=== PATIENT | female | born 1935 | race African-American/Black ===

== ENCOUNTER 2018-04-01 17:52 | Emergency (ER) | payer MEDICARE ==
[~2018-04-01] VITALS: Ht 165.1 cm; Wt 45.4 kg
--- OUTSIDE RECORDS SUMMARY | 2018-04-01 17:54 | XMS REPORT | Clinical Summary ---
Author Author KIMBERLY [facility] Address Unknown Phone Unavailable Care Team Providers Care Car Body Mechanic Name Role Phone PCP Unavailable Allergies Active Allergy Reactions Severity Noted Date Comments Captopril Other (See Comments) High 04/20/2010 Per RXQI Cough Current Medications Prescription Sig. Disp. Refills Start End Date Status Date albuterol-ipratropium Inhale 2 puffs by mouth 1 Inhaler 3 03/25/20 Active (COMBIVENT RESPIMAT) via inhaler every 4 17 20-100 mcg/actuation Mist (four) hours as needed inhaler for Wheezing. carvedilol (COREG) 25 MG Take 1 tablet (25 mg 60 tablet 07/08/20 07/08/20 Active tablet total) by mouth 2 (two) 17 18 times daily with breakfast and dinner. atorvastatin (LIPITOR) 40 Take 1 tablet (40 mg 30 tablet 07/08/20 07/08/20 Active MG tablet total) by mouth nightly. 17 18 clopidogrel (PLAVIX) 75 Take 1 tablet (75 mg 30 tablet 07/08/20 07/08/20 Active mg tablet total) by mouth daily. 17 18 hydrALAZINE (APRESOLINE) Take 1 tablet (100 mg 90 tablet 07/08/20 07/08/20 Active 100 MG tablet total) by mouth every 8 17 18 (eight) hours. isosorbide mononitrate Take 1 tablet (30 mg 60 tablet 07/08/20 Active (IMDUR) 30 MG 24 hr total) by mouth 2 (two) 17 18 tablet times daily. NIFEdipine (ADALAT CC) 90 Take 1 tablet (90 mg 30 tablet 07/08/20 07/08/20 Active MG 24 hr tablet total) by mouth daily. 17 18 pantoprazole (PROTONIX) Take 1 tablet (40 mg 30 tablet 3 07/08/20 Active 40 MG tablet total) by mouth daily. 17 bumetanide (BUMEX) 2 MG Take 1 tablet (2 mg 60 tablet 0 10/11/20 Active tablet total) by mouth 2 (two) 17 18 times daily. potassium chloride SA Take 2 tablets (20 mEq 60 tablet 0 12/24/19 Active (K-DUR,KLOR-CON) 10 MEQ total) by mouth daily. 18 19 tablet predniSONE (DELTASONE) 20 2 tabs daily x2 days, 9 tablet 0 12/24/19 Active MG tablet then 1 tab daily x3 days, 18 then 1/2 tab daily x4 days. aspirin 81 MG EC tablet Take 1 tablet (81 mg 30 tablet 11 03/25/20 07/08/20 Discontin total) by mouth daily. 17 17 ued clopidogrel (PLAVIX) 75 Take 1 tablet (75 mg 30 tablet 03/25/20 07/08/20 Discontin mg tablet total) by mouth daily. 17 17 ued ferrous sulfate 325 (65 Take 1 tablet (325 mg 30 tablet 03/25/20 03/25/20 FE) MG tablet total) by mouth daily. 17 18 hydrALAZINE (APRESOLINE) Take 2 tablets (50 mg 120 tablet 11 03/25/20 07/08/20 Discontin 25 MG tablet total) by mouth 2 (two) 17 17 ued times daily. acetaminophen-codeine Take 1 tablet by mouth 30 tablet 0 03/25/20 (TYLENOL #3) 300-30 mg every 4 (four) hours as 17 17 per tablet needed for Pain for up to 10 days. Max Daily Amount: 6 tablets furosemide (LASIX) 20 MG Take 2 tablets (40 mg 30 tablet 3 03/25/20 07/08/20 Discontin tablet total) by mouth daily. 17 17 ued NIFEdipine (ADALAT CC) 60 Take 2 tablets (120 mg 60 tablet 11 07/08/20 Discontin MG 24 hr tablet total) by mouth daily. 17 17 ued ranitidine (ZANTAC) 150 Take 1 tablet (150 mg 30 tablet 03/25/20 07/08/20 Discontin MG tablet total) by mouth daily. 17 17 ued omeprazole (PRILOSEC) 20 Take 1 capsule (20 mg 30 capsule 3 03/25/20 07/08/20 Discontin MG capsule total) by mouth daily. 17 17 ued senna-docusate (SENOKOT Take 1 tablet by mouth 2 60 tablet 07/08/20 Discontin S) 8.6-50 mg per tablet (two) times daily. 17 17 ued carvedilol (COREG) 25 MG Take 1 tablet (25 mg 60 tablet 03/25/20 07/08/20 Discontin tablet total) by mouth 2 (two) 17 17 ued times daily with breakfast and dinner. atorvastatin (LIPITOR) 40 Take 1 tablet (40 mg 30 tablet 03/25/20 07/08/20 Discontin MG tablet total) by mouth nightly. 17 17 ued escitalopram oxalate Take 1 tablet (5 mg 30 tablet 2 07/08/20 Discontin (LEXAPRO) 5 MG tablet total) by mouth daily for 17 17 ued 90 days. ipratropium-albuterol Take 3 mLs by 360 mL 3 07/08/20 08/07/20 (DUO-NEB) 0.5 mg-3 mg(2.5 nebulization every 6 17 17 mg base)/3 mL nebulizer (six) hours for 30 days. solution predniSONE (DELTASONE) Take 1 tablet (2.5 mg 7 tablet 0 07/09/2001/03 2.5 MG tablet total) by mouth daily for 17 17 7 days 7 days then stop. bumetanide (BUMEX) 1 MG Take 2 tablets (2 mg 120 tablet 07/08/20 07/27/20 Discontin tablet total) by mouth 2 (two) 17 17 ued times daily. polyethylene glycol Take 17 g by mouth daily 510 g 3 07/08/20 (GLYCOLAX) 17 gram packet for 30 days. 17 17 metOLazone (ZAROXOLYN) Take 1 tablet (2.5 mg 8 tablet 3 07/11/20 Discontin 2.5 MG tablet total) by mouth twice a 17 17 ued week for 30 days Take on mondays and . bumetanide (BUMEX) 1 MG Take 1 tablet (1 mg 60 tablet 11 07/27/20 Discontin tablet total) by mouth 2 (two) 17 17 ued times daily. potassium chloride SA Take 1 tablet (10 mEq 30 tablet 11 07/27/20 Discontin (K-DUR,KLOR-CON) 10 MEQ total) by mouth daily. 17 18 ued tablet escitalopram oxalate Take 1 tablet (10 mg 30 tablet 0 07/27/2010/25 (LEXAPRO) 10 MG tablet total) by mouth daily for 17 17 90 days. acetaminophen-codeine Take 1 tablet by mouth 20 tablet 0 12/18/19 (TYLENOL #3) 300-30 mg every 4 (four) hours as 18 18 per tablet needed for up to 10 days. Max Daily Amount: 6 tablets Active Problems Problem Noted Date Shortness of breath 12/21/2017 CHF (congestive heart failure) ([facility]) 12/21/2017 Pleural effusion 12/21/2017 Acute exacerbation of CHF (congestive heart failure) ([facility]) 10/01/2017 Hypertensive urgency 10/01/2017 SAPNA (acute kidney injury) ([facility]) 07/27/2017 Acute diastolic congestive heart failure ([facility]) 06/30/2017 UGI bleed 06/29/2017 Anemia 06/29/2017 PAD (peripheral artery disease) ([facility]) 02/24/2017 Essential hypertension 01/07/2017 Mixed hyperlipidemia 01/07/2017 Tobacco abuse 01/07/2017 Cerebrovascular disease 01/07/2017 Toe ulcer, right ([facility]) PVD (peripheral vascular disease) ([facility]) COPD (chronic obstructive pulmonary disease) ([facility]) Resolved Problems Problem Noted Date Resolved Date COPD exacerbation ([facility]) 10/01/2017 10/01/2017 Dehydration 07/25/2017 10/01/2017 Hypokalemia 07/25/2017 10/01/2017 Uncontrolled hypertension 07/08/2017 10/01/2017 Postoperative anemia due to acute blood loss 03/22/2017 10/01/2017 PVC (premature ventricular contraction) 01/07/2017 10/01/2017 Skin ulcer of toe of right foot with fat layer exposed ([facility]) 01/07/2017 Blister of great toe, right, infected 01/07/2017 10/01/2017 Encounters Date Type Specialty Care Team Description 12/21/2017 [facility] Cardiology Darcie Martin MD Shortness of breath - Encounter Sonali Camargo MD (Primary Dx);Acute on 12/24/2017 chronic congestive heart failure, unspecified congestive heart failure type ([facility]);Pleural effusion;Chronic obstructive pulmonary disease with acute exacerbation (HCC) 12/21/2017 Orders Only General Internal Medicine 12/18/2017 Emergency Emergency Medicine Koko Anne MD Pain of lower extremity, unspecified laterality (Primary Dx);Essential hypertension;Mixed hyperlipidemia 10/01/2017 [facility] Cardiology Koko Anne MD COPD exacerbation (HCC) - Encounter Magdalena Martinez, (Primary Dx);Acute on 10/11/2017 MD 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 ([facility]);PVC (premature ventricular contraction) 10/01/2017 Orders Only General Internal Medicine 07/25/2017 Emergency Cardiology Roseanna Castaneda MD Dehydration (Primary - Gian Washington MD Dx);Acute diastolic 07/27/2017 Juan Pablo Vuong congestive heart failure MD Ravi ([facility]);Hypokalemia;General ized weakness 07/19/2017 Documentation Cardiology Judie Holt, MARKLOGIC DEVELOPER 06/29/2017 [facility] General Internal Medicine Matti Perez, BEN bleed (Primary - Encounter MD Dx);Acute blood loss 07/09/2017 Chris Yanez MD anemia Juan Pablo Vuong MD Conley-Harvey, Cherice Michelle, MD 06/29/2017 Orders Only General Internal Medicine 04/05/2017 Office Visit Cardiology Dimitris Polanco PVD ( peripheral vascular MD disease) ([facility]) (Primary Dx) after 03/31/2017 Immunizations Name Dates Previously Given Next Due Tdap 12/20/2013 Family History Medical History Relation Name Comments Peripheral vascular Brother BKA disease Peripheral vascular Brother BKA disease Colon cancer Brother Lung cancer Brother Coronary artery disease Father [place] Coronary artery disease Mother [place] Relation Name Status Comments Brother Brother Brother Brother Father Mother Social History Tobacco Use Types Packs/Day Years Used Date Former Smoker 0.5 Smokeless Tobacco: Never Used Tobacco Cessation: Ready to Quit: No Alcohol Use Drinks/Week oz/Week Comments Yes Sex Assigned at Date Recorded Not on file Last Filed Vital Signs Vital Sign Reading Time Taken Blood Pressure 203/81 12/24/2017 10:59 AM LOGISTICS LEAD Pulse 62 12/24/2017 10:59 AM LOGISTICS LEAD Temperature 36.6 C (97.8 F) 12/24/2017 10:59 AM LOGISTICS LEAD Respiratory Rate 18 12/24/2017 10:59 AM LOGISTICS LEAD Oxygen Saturation 97% 12/24/2017 10:59 AM LOGISTICS LEAD Inhaled Oxygen - - Concentration Weight 54 kg (119 lb) 12/21/2017 10:16 PM LOGISTICS LEAD Height 165.1 cm (5' 5") 12/21/2017 4:57 AM LOGISTICS LEAD Body Mass Index 19.8 12/21/2017 10:16 PM LOGISTICS LEAD Plan of Treatment Health Maintenance Due Date Last Done Comments INFLUENZA VACCINE 08/14/2018 Implants Implanted Type Area Heat Treat Furnace Operator Device Expiration Model / Identifier Date Serial / Lot Matrix Floseal Hemo W/O Ndl 10 Cement/Blair Right: MIRANDA:BIOSCI 2018 [id number] / [id number] - [id number] ler/Adhesi Groin / Implanted: Qty: 1 on 03/21/2017 by [id number] Dimitris Polanco MD Patch Vasc Knit 2x3in Dbl Nic Graft/Patc Right: GETINGE 01/11/2019 [id number] / [id number] - [id number] Groin IND:MAQUET:CV / Implanted: Qty: 1 on 03/21/2017 by [id number] Dimitris Polanco MD Grft Eptfe-Heparin Rng [id number] Graft/Patc Right: Leg WL GORE & 08/08 [id number] - [id number] ASSC:MED PRDT / Implanted: Qty: 1 on 03/21/2017 by [id number] Dimitris Polanco MD 22 / Procedures Procedure Name Priority Date/Time Associated Diagnosis Comments CRITICAL CARE Routine 12/21/2017 Results for this 7:46 AM LOGISTICS LEAD procedure are in the results section. CRITICAL CARE Routine 10/01/2017 Results for this 8:02 AM LOGISTICS LEAD procedure are in the results section. CRITICAL CARE Routine 06/29/2017 Results for this 7:04 PM CDT procedure are in the results section. after 03/31/2017 Results * RHYTHM STRIP - SCAN (12/27/2017 7:50 AM) Only the most recent of 8 results within the time period is included. * XR knee 1 or 2 views right (12/24/2017 8:05 AM) Specimen Performing Laboratory GE RIS Narrative FINAL REPORT COMPARISON: None TECHNIQUE: 2 views ofthe right knee. FINDINGS: There are no acute fractures or dislocations.No radiopaque foreign bodies. Joint spaces are maintained. Vascular calcifications are seen. Surgical clips over the upper catheter again noted. Suprapatellar joint effusion suspected. IMPRESSION: No acute bony abnormality. Signed: Parish Wells MD Report Verified Date/Time:12/24/2017 08:40:16 Reading Location: [address] Transitional Reading Room Procedure Note Interface, External Ris In - 12/24/2017 8:42 AM LOGISTICS LEAD FINAL REPORT COMPARISON: None TECHNIQUE: 2 views of the right knee. FINDINGS: There are no acute fractures or dislocations. No radiopaque foreign bodies. Joint spaces are maintained. Vascular calcifications are seen. Surgical clips over the upper catheter again noted. Suprapatellar joint effusion suspected. IMPRESSION: No acute bony abnormality. Signed: Parish Wells MD Report Verified Date/Time: 12/24/2017 08:40:16 Reading Location: [address] Transitional Reading Room * CBC with platelet count + automated diff (12/24/2017 5:21 AM) Only the most recent of 21 results within the time period is included. Component Value Ref Range WBC 5.7 3.5 - 10.5 K/ L RBC 2.41 (L) 3.93 - 5.22 M/ L Hemoglobin 7.0 (L) 11.2 - 15.7 GM/DL Hematocrit 22.8 (L) 34.1 - 44.9 % MCV 94.6 79.4 - 94.8 fL MCH 29.0 25.6 - 32.2 pg MCHC 30.7 (L) 32.2 - 35.5 GM/DL RDW 14.7 (H) 11.7 - 14.4 % Platelets 227 150 - 450 K/CU MM MPV 9.8 9.4 - 12.3 fL nRBC 0 0 - 0 /100 WBC % Neutros 70 % % Lymphs 14 % % Monos 14 % % Eos 0 % % Baso 0 % # Neutros 4.00 1.56 - 6.13 K/ L # Lymphs 0.80 (L) 1.18 - 3.74 K/ L # Monos 0.80 (H) 0.24 - 0.36 K/ L # Eos 0.01 (L) 0.04 - 0.36 K/ L # Baso 0.01 0.01 - 0.08 K/ L Immature 1 0 - 1 % Granulocytes-Relative Specimen Performing Laboratory Blood - Arm, [place] [address] * CBC with platelet count + automated diff (12/24/2017 5:21 AM) Only the most recent of 21 results within the time period is included. Specimen Performing Laboratory Blood Narrative The following orders were created for panel order CBC with platelet count + automated diff. Procedure Abnormality Status --------- - ------ CBC with platelet count ...[[id number]]AbnormalFinal result Please view results for these tests on the individual orders. * Phosphorus (12/24/2017 5:21 AM) Only the most recent of 7 results within the time period is included. Component Value Ref Range Phosphorus 2.8 2.3 - 4.7 mg/dL Specimen Performing Laboratory Blood - Arm, [address] [address] * Magnesium (12/24/2017 5:21 AM) Only the most recent of 27 results within the time period is included. Component Value Ref Range Magnesium 1.8 1.6 - 2.6 mg/dL Specimen Performing Laboratory Blood - Arm, [address] [address] * Basic metabolic panel (12/24/2017 5:21 AM) Only the most recent of 42 results within the time period is included. Component Value Ref Range Sodium 141 136 - 145 meq/L Potassium 3.3 (L) 3.5 - 5.1 meq/L Chloride 102 98 - 107 meq/L CO2 31 (H) 22 - 29 meq/L BUN 44 (H) 7 - 21 mg/dL Creatinine 1.53 (H) 0.57 - 1.25 mg/dL Glucose 84 70 - 105 mg/dL Calcium 8.8 8.4 - 10.2 mg/dL EGFR 39Comment: ESTIMATED GFR IS NOT ACCURATE mL/min/1.73 sq m CREATININE CLEARANCE IN PREDICTING GLOMERULAR FILTRATION RATE. ESTIMATED GFR IS NOT APPLICABLE FOR DIALYSIS PATIENTS. Specimen Performing Laboratory Blood - Arm, Left [facility] [address] [address] * PERIPHERAL VASCULAR REPORT - SCAN (12/23/2017 2:51 PM) Only the most recent of 3 results within the time period is included. * Venous doppler leg, right (12/23/2017 1:37 PM) Only the most recent of 3 results within the time period is included. Component Value Ref Range Ejection Fraction Specimen Performing Laboratory [facility] ECHO [facility]ART[facility] MKCKESSON CPACS Impressions Right Impression 1. There is no deep venous obstruction in the common femoral, profunda femoral, femoral, popliteal, posterior tibial or peroneal veins. 2. There is no superficial venous obstruction in the great saphenous vein. Left Impression Not ordered. Conclusions Summary Venous duplex imaging and compression of the right lower extremity was performed. The veins were adequately visualized. The right venous system was patent and compressible with no evidence of thrombus. The venous Doppler waveforms were pulsatile indicating possible elevated right heart filling pressure . Signature Velocities are measured in cm/s ; Diameters are measured in cm Narrative PV LAB - Lower Extremities DVT Study Demographics Patient NameCALLAHAN, Date of Study 2017 IVONNE Segura 82 Visit [id number] Female of Number Referring [facility] Room Number 2402 Physician Curriculum Supervisor Alex Stevens. InterpretingRobyn Patel RVT, RUDYSPkevynsicislava SRIVASTAVA, RPVI Procedure Type of Study: Veins: Lower Extremities DVT Study, VENOUS DOPPLER LEG, RIGHT. Indications for Study:Evaluate for DVT. Patient Status:Routine. Study Location:Vascular Lab. Technical Quality:Adequate visualization. Risk Factors History of Disease + +----+ + !Diagnosis!Date!Comments ! + +----+ + !History/Risk !!Chronic PVD, S/P Right fem-pop bypass graft ,! !Factors: !!HTN, HLD, COPD exacerbation ! + +----+ + Procedure Note Interface, External Ris In - 12/23/2017 2:22 PM LOGISTICS LEAD PV LAB - Lower Extremities DVT Study Demographics Patient Name ROBER, Date of Study 12/23/2017 IVONNE Segura Age 82 Visit Number [id number] Gender Female Date of 1935 Number Referring [facility] Room Number 2402 Physician Curriculum Supervisor Alex Stevens. Interpreting Robyn Patel RVT, ARBALAJIS Physician , TALA Procedure Type of Study: Veins: Lower Extremities DVT Study, VENOUS DOPPLER LEG, RIGHT. Indications for Study:Evaluate for DVT. Patient Status:Routine. Study Location:Vascular Lab. Technical Quality:Adequate visualization. Risk Factors History of Disease + +----+ + !Diagnosis !Date!Comments ! + +----+ + !History/Risk ! !Chronic PVD, S/P Right fem-pop bypass graft 03/21/17,! !Factors: ! !HTN, HLD, COPD exacerbation ! + +----+ + Impressions Right Impression 1. There is no deep venous obstruction in the common femoral, profunda femoral, femoral, popliteal, posterior tibial or peroneal veins. 2. There is no superficial venous obstruction in the great saphenous vein. Left Impression Not ordered. Conclusions Summary Venous duplex imaging and compression of the right lower extremity was performed. The veins were adequately visualized. The right venous system was patent and compressible with no evidence of thrombus. The venous Doppler waveforms were pulsatile indicating possible elevated right heart filling pressure . Signature Velocities are measured in cm/s ; Diameters are measured in cm * POC-Glucose meter (12/22/2017 7:47 AM) Only the most recent of 2 results within the time period is included. Component Value Ref Range POC-Glucose Meter 109Comment: TESTED AT [address] 70 - 110 mg/[place] [address] Specimen [place] [address] * Creatine Kinase (CK), Total and MB (12/22/2017 12:07 AM) Only the most recent of 9 results within the time period is included. Component Value Ref Range Total CK 30 29 - 200 U/L CK-MB 0.6 0.0 - 6.6 ng/mL MB Relative Index 2.0 % Specimen Performing Laboratory Blood [address] [address] Narrative CK-MB Reference Range: <6.7Normal 6.7-10.0Borderline >10.0 Abnormal * Troponin I (12/21/2017 8:23 PM) Only the most recent of 12 results within the time period is included. Component Value Ref Range Troponin I 0.03 0.00 - 0.03 ng/mL Specimen Performing Laboratory Blood - Arm, Right [address] [address] Narrative Troponin I (TnI) levels must be interpreted in the context of the presenting symptoms and the clinical findings. Elevated TnI levels indicate myocardial damage, but are not specific for ischemic heart disease. Elevated TnI levels are seen in patients with other cardiac conditions (including myocarditis and congestive heart failure), and slight TnI elevations occur in patients with other conditions, including sepsis, renal failure, acidosis, acute neurological disease, and persistent tachyarrhythmia. * ECHOCARDIOGRAM REPORT - SCAN (12/21/2017 5:50 PM) Only the most recent of 3 results within the time period is included. * NM lung scan (V/Q) (12/21/2017 1:18 PM) Only the most recent of 2 results within the time period is included. Specimen Performing Laboratory RIS Narrative FINAL REPORT PROCEDURE: V/Q LUNG SCAN CPT CODE: 51499 INDICATION: Dyspnea PROTOCOL: 9.9 mCi ofXe-133 gas was administered by inhalation. Single breath and rebreathing/washout images were obtained in the anterior and posterior projections.4.3 mCi of Tc-99m MAA was then injected intravenously, and static perfusion images were obtained in multiple projections. FINDINGS: Ventilation: Initial tracer distribution is irregular in both lungs with further decrease in the mid and lower lung lim bilaterally. Washout proceeds normally. Perfusion:Tracer distribution is nonsegmentally irregularly decreased in both lungs. There is prominence of the oblique fissures. IMPRESSION: 1. Very low probability of acute pulmonary embolization. 2. Bilateral parenchymal and pleural abnormality, similar in overall pattern to the study of 10/07/2017. Signed: Saroj Valles MD Report Verified Date/Time:12/21/2017 15:19:27 Reading Location: [address] Reading Room Procedure Note Interface, External Ris In - 12/21/2017 3:21 PM LOGISTICS LEAD FINAL REPORT PROCEDURE: V/Q LUNG SCAN CPT CODE: 77752 INDICATION: Dyspnea PROTOCOL: 9.9 mCi of Xe-133 gas was administered by inhalation. Single breath and rebreathing/washout images were obtained in the anterior and posterior projections. 4.3 mCi of Tc-99m MAA was then injected intravenously, and static perfusion images were obtained in multiple projections. FINDINGS: Ventilation: Initial tracer distribution is irregular in both lungs with further decrease in the mid and lower lung lim bilaterally. Washout proceeds normally. Perfusion: Tracer distribution is nonsegmentally irregularly decreased in both lungs. There is prominence of the oblique fissures. IMPRESSION: 1. Very low probability of acute pulmonary embolization. 2. Bilateral parenchymal and pleural abnormality, similar in overall pattern to the study of 10/07/2017. Signed: Saroj Valles MD Report Verified Date/Time: 12/21/2017 15:19:27 Reading Location: [address] [address] Reading Room * 2D Echo W/O Doppler(No Doppler) (12/21/2017 11:02 AM) Component Value Ref Range Ejection Fraction Specimen Performing Laboratory [facility] ECHO HEART[facility] MKCKESSON CPACS Narrative Transthoracic Echocardiography Report (TTE) Demographics Patient NameCALLAHAN,Date of Study2017 IVONNE Segura Gender Female Visit [id number] Race Unknown [id number] Number Date of 1935 [facility] Darcie Sandoval Physician Age 82 year(s) Curriculum Supervisor Katie Eubanks Education Assistant Physician CAROLA Cochran Procedure Type of Study TTE procedure:ECHO2D MODE W/O DOPPLER (STAT) Indications:Shortness of breath. Clinical History HGB 8.3 HCT 26.5 % SOB, CHF, HTN, HLD, CVA, PAD, PVD, TOBACCO ABUSE, COPD, SAPNA Height: 65 inches Weight: 53.98 kg (119 lbs) BSA: 1.59 m^2 BMI: 19.8 kg/m^2 HR: 71 bpm BP: 181/68 mmHg Summary 1. All of the LV segments contract normally LVEF by Moseley's method of disk assessment is normal (>60%) . 2. Normal right ventricle structure and function. Estimated peak systolic PA pressure is 65-70 mmHg . Previous Study Compared to the previous study 10/01/2017 worsening MR. Signature Findings Left Ventricle The left ventricle is chamber size (by PSLAX dimension) is normal (female - LVIDd 3.8-5.2cm) . Mild concentric LV hypertrophy. All of the LV segments contract normally . LVEF by Moseley's method of disk assessment is normal (>60%) . Left AtriumLA size is severely enlarged (>48 ml/m2) . Right VentricleNormal right ventricle structure and function. Right Atrium RA size is dilated. Aortic Valve Mild AoV cusp thickening. Mild AoV cusp calcification. Aortic sclerosis without Doppler evidence of stenosis. Mitral Valve Mild MV leaflet thickening. Mild mitral annular calcification. Moderate mitral regurgitation. MR severity maybe underestimate, due to jet eccentricity . Tricuspid ValveMild tricuspid regurgitation. Estimated peak systolic PA pressure is 65-70 mmHg . Pulmonic Valve Normal PV structure and function by limited views and Doppler. AortaAortic root size (SInus of Valsalva diameter) is normal . Pericardiumtrace pericardial effusion. IVC/SVC/PA/PV/PleuralThe estimated RA pressure by IVC dynamics 16-20mmHg . Chambers/Structures Left Atrium LA Dimension: 4.14 cmLA Area: 34.32 cm^2 LA Volume: 136.19 ml LA Vol. Index: 86 ml/m^2 Left Ventricle LVIDd: 4.69 cm LV Septum Diastolic: 1.13 cm LV PW Diastolic: 1.22 cm Aorta Ao Root S of Xenia.: 2.59 cm Doppler/Quantitative Measurements Mitral Valve Mean Velocity: 0.95 m/s Mean Gradient: 4.13 mmHg MV VTI: 39.44 cm MV Nic. Peak: 1.7 m/s LVOT Peak Velocity: 1.23 m/s Peak Gradient: 6.01 mmHg Mean Velocity: 0.83 m/s Mean Gradient: 3.23 mmHg LVOT VTI: 29.3 cm Procedure Note Interface, External Ris In - 12/21/2017 5:15 PM LOGISTICS LEAD Transthoracic Echocardiography Report (TTE) Demographics Patient Name ROBER, Date of Study 12/21/2017 IVONNE Segura Gender Female Visit Number [id number] Race Unknown Room Number ED28 Number Date of 1935 Referring Terry Sandoval Physician Age 82 year(s) Curriculum Supervisor Katie Eubanks Education Assistantcarolyn Means Interpreting Sakina Akins Physician Procedure Type of Study TTE procedure:ECHO2D MODE W/O DOPPLER (STAT) Indications:Shortness of breath. Clinical History HGB 8.3 HCT 26.5 % SOB, CHF, HTN, HLD, CVA, PAD, PVD, TOBACCO ABUSE, COPD, SAPNA Height: 65 inches Weight: 53.98 kg (119 lbs) BSA: 1.59 m^2 BMI: 19.8 kg/m^2 HR: 71 bpm BP: 181/68 mmHg Summary 1. All of the LV segments contract normally LVEF by Moseley's method of disk assessment is normal (>60%) . 2. Normal right ventricle structure and function. Estimated peak systolic PA pressure is 65-70 mmHg . Previous Study Compared to the previous study 10/01/2017 worsening MR. Signature Findings Left Ventricle The left ventricle is chamber size (by PSLAX dimension) is normal (female - LVIDd 3.8-5.2cm) . Mild concentric LV hypertrophy. All of the LV segments contract normally . LVEF by Moseley's method of disk assessment is normal (>60%) . Left Atrium LA size is severely enlarged (>48 ml/m2) . Right Ventricle Normal right ventricle structure and function. Right Atrium RA size is dilated. Aortic Valve Mild AoV cusp thickening. Mild AoV cusp calcification. Aortic sclerosis without Doppler evidence of stenosis. Mitral Valve Mild MV leaflet thickening. Mild mitral annular calcification. Moderate mitral regurgitation. MR severity maybe underestimate, due to jet eccentricity . Tricuspid Valve Mild tricuspid regurgitation. Estimated peak systolic PA pressure is 65-70 mmHg . Pulmonic Valve Normal PV structure and function by limited views and Doppler. Aorta Aortic root size (SInus of Valsalva diameter) is normal . Pericardium trace pericardial effusion. IVC/SVC/PA/PV/Pleural The estimated RA pressure by IVC dynamics 16-20mmHg . Chambers/Structures Left Atrium LA Dimension: 4.14 cm LA Area: 34.32 cm^2 LA Volume: 136.19 ml LA Vol. Index: 86 ml/m^2 Left Ventricle LVIDd: 4.69 cm LV Septum Diastolic: 1.13 cm LV PW Diastolic: 1.22 cm Aorta Ao Root S of Xenia.: 2.59 cm Doppler/Quantitative Measurements Mitral Valve Mean Velocity: 0.95 m/s Mean Gradient: 4.13 mmHg MV VTI: 39.44 cm MV Nic. Peak: 1.7 m/s LVOT Peak Velocity: 1.23 m/s Peak Gradient: 6.01 mmHg Mean Velocity: 0.83 m/s Mean Gradient: 3.23 mmHg LVOT VTI: 29.3 cm * POC-Lactic Acid, Venous (12/21/2017 8:47 AM) Component Value Ref Range POC-Lactic Acid, Venous 0.5 (L)Comment: TESTED AT [address] 0.9 - 1.7 mmol/L [place] [address] Specimen Performing [place] [address] * ED ECG Interpretation (12/21/2017 7:46 AM) Only the most recent of 2 results within the time period is included. Narrative Darcie Martin MD 12/21/20177:46 AM ECG/EKG Interpretation Date/Time: 12/21/2017 5:37 AM Performed by: DARCIE MARTIN Authorized by: DARCIE MARTIN The ECG was interpreted by ED physician. This ECG was not compared with previous ECG(s).The ECG is interpreted as sinus rhythm. Rate is normal rate. [place] is normal. Clinical Impression: non-specific ECGECG reviewed and does not meet STEMI criteria. Patient tolerance: Patient tolerated the procedure well with no immediate complications * Critical Care (12/21/2017 7:46 AM) Narrative Darcie Martin MD 12/21/20177:46 AM Critical Care Performed by: DARCIE MARTIN Authorized by: DARCIE MARTIN Total critical care time: 35 minutes Critical care time was exclusive of separately billable procedures and treating other patients. Critical care was necessary to treat or prevent imminent or life-threatening deterioration of the following conditions: respiratory failure. Critical care was time spent personally by me on the following activities: evaluation of patient's response to treatment, obtaining history from patient or surrogate, ordering and review of laboratory studies, pulse oximetry, review of old charts, examination of patient, interpretation of cardiac output measurements, ordering and performing treatments and interventions, ordering and review of radiographic studies and re-evaluation of patient's condition. * B-type natriuretic peptide (12/21/2017 6:24 AM) Only the most recent of 15 results within the time period is included. Component Value Ref Range BNP 1430 (H) 0 - 100 pg/mL Specimen Performing [place] [address] * XR chest 1 view portable / bedside (12/21/2017 5:54 AM) Only the most recent of 15 results within the time period is included. Specimen Performing Laboratory GE RIS Narrative FINAL REPORT RAD, CHEST, 1 VIEW, NON DEPT INDICATION: SHORTNESS OF BREATH COMPARISON: Chest x-ray 3 months ago TECHNIQUE: Portable frontal view of the chest. IMPRESSION: Stable cardiomegaly. No pneumothorax. Stable pulmonary edema and large bilateral effusions with adjacent airspace disease. No acute osseous abnormality. Signed: Darwin Valdez MD Report Verified Date/Time:12/21/2017 06:08:21 Reading Location: [facility] [id number] Ortho Consult Reading Room Procedure Note Interface, External Ris In - 12/21/2017 6:10 AM LOGISTICS LEAD FINAL REPORT RAD, CHEST, 1 VIEW, NON DEPT INDICATION: SHORTNESS OF BREATH COMPARISON: Chest x-ray 3 months ago TECHNIQUE: Portable frontal view of the chest. IMPRESSION: Stable cardiomegaly. No pneumothorax. Stable pulmonary edema and large bilateral effusions with adjacent airspace disease. No acute osseous abnormality. Signed: Darwin Valdez MD Report Verified Date/Time: 12/21/2017 06:08:21 Reading Location: [facility] [id number] Ortho Consult Reading Room * PT/aPTT (12/21/2017 5:41 AM) Only the most recent of 5 results within the time period is included. Component Value Ref Range Protime 14.1 11.7 - 14.7 seconds INR 1.1 <=5.9 PTT 29.7 22.5 - 36.0 seconds Specimen Performing Laboratory Blood [place] [id number] Narrative RECOMMENDED COUMADIN/WARFARIN INR THERAPY RANGES STANDARD DOSE: 2.0 - 3.0 Includes: PROPHYLAXIS for venous thrombosis, systemic embolization; TREATMENT for venous thrombosis and/or pulmonary embolus. HIGH RISK: Target INR is 2.5-3.5 for patients with mechanical heart valves. * D-dimer, quantitative (12/21/2017 5:41 AM) Only the most recent of 2 results within the time period is included. Component Value Ref Range D-Dimer, Quant 1.87 (H) <0.50 MG/L FEU Specimen Performing Laboratory Blood [place] [id number] Narrative Intended Use: The D-Dimer Assay can be used to aid in the diagnosis of Deep Vein Thrombosis (DVT) and Pulmonary Embolism Disease (PED). In patients with low pre-test probability, various studies concerning STA Liatest D-dimer test have reported that with a cutoff value of 0.50 MG/L FEU, the Negative Predictive Value (NPV) regarding the exclusion of thrombosis is within 95-100% range. * ECG 12 lead (12/21/2017 5:16 AM) Only the most recent of 8 results within the time period is included. Specimen Performing Laboratory [employer] MUSE Narrative Ventricular Rate 73 BPM Atrial Rate 73 BPM P-R Interval 194 ms QRS Duration 76 ms Q-T Interval 418 ms QTC Calculation(Bazett) 460 ms P [place] 69 degrees R [place] 28 degrees T [place] 31 degrees Sinus rhythm with Premature atrial complexes Anterior infarct (cited on or before 10-OCT-2017) Abnormal ECG When compared with ECG of 10-OCT-2017 03:53, Intermittent abberancy not seen now It seems that leads V4-V6 are differently placed Criteria for old anterolateral infarct are no longer seen Nonspecific T wave abnormality no longer evident in Anterolateral leads QT has lengthened Confirmed by MD LUCIANO YOCHAI ([id number]) on 12/21/2017 6:55:44 AM Procedure Note Interface, External Ris In - 12/21/2017 6:55 AM LOGISTICS LEAD Ventricular Rate 73 BPM Atrial Rate 73 BPM P-R Interval 194 ms QRS Duration 76 ms Q-T Interval 418 ms QTC Calculation(Bazett) 460 ms P [place] 69 degrees R [place] 28 degrees T [place] 31 degrees Sinus rhythm with Premature atrial complexes Anterior infarct (cited on or before 10-OCT-2017) Abnormal ECG When compared with ECG of 10-OCT-2017 03:53, Intermittent abberancy not seen now It seems that leads V4-V6 are differently placed Criteria for old anterolateral infarct are no longer seen Nonspecific T wave abnormality no longer evident in Anterolateral leads QT has lengthened Confirmed by MD LUCIANO YOCHAI ([id number]) on 12/21/2017 6:55:44 AM * Hemoglobin and hematocrit (10/09/2017 7:39 PM) Only the most recent of 16 results within the time period is included. Component Value Ref Range Hemoglobin 8.9 (L) 11.2 - 15.7 GM/DL Hematocrit 28.3 (L) 34.1 - 44.9 % Specimen Performing Laboratory Blood - Arm, [place] [address] * TRANSFUSION SERVICE REPORT - SCAN (10/09/2017 5:41 PM) Only the most recent of 6 results within the time period is included. * Prepare Leuko-Red RBC (10/08/2017 11:54 PM) Only the most recent of 2 results within the time period is included. Component Value Ref Range CROSSMATCH COMPATIBLE Unit ABO O Pos UNIT NUMBER [id number] Status TRANSFUSED Blood Bank Product RED BLOOD CELLS PRODUCT CODE [id number] Specimen Performing Laboratory Other [facility] [place] * Transfuse Leuko-Red RBC (10/08/2017 4:50 AM) Only the most recent of 4 results within the time period is included. * NM myocardial perfusion PET (rest and stress) (10/07/2017 2:15 PM) Specimen Performing Laboratory GE RIS Narrative FINAL REPORT PROCEDURE: Rest/Stress MYOCARDIAL PERFUSION PET with regadenoson\\XA9\\ CPT CODE: 47872 INDICATION: Abnormal troponins HISTORY: Cardiac risk factors: The age, sex, hypertension, lipid abnormality, peripheral vascular disease. Other cardiovascular history: CHF, dyspnea, ventricular arrhythmia. Recent cardiac symptoms: Dyspnea. Current cardiovascular-related medications: Plavix, Coreg, Lasix, nifedipine, Imdur, hydralazine, atorvastatin. PROTOCOL: Limited low-dose CT imaging was performed for attenuation correction. 40.1 mCi of Rb-82 chloride was injected iv at rest, and gated PET (positron emission tomography) images were obtained. Subsequently, 40 mCi of Rb-82 chloride was injected iv at expected peak pharmacologic effect, and gated PET images were obtained. PRELIMINARY STRESS TEST DATA FROM NONINVASIVE CARDIOLOGY: Pharmacologic stress was by 10-second iv infusion of 0.4 mg of regadenoson. Radiotracer was injected 30 seconds after start of stress. Heart rate was 70 beats/min at rest and 75 beats/min (53% of MPHR) at tracer injection. BP was 160/45 mmHg at rest and 157/40 mmHg at tracer injection. Stress was stopped for predetermined endpoint. The patient experienced dyspnea; treatment was not required. Preliminary ECG evaluation revealed sinus rhythm at rest and no ischemic changes with stress. (Final ECG interpretation and other stress and monitoring data are reported separately by Cardiology.) IMAGING FINDINGS: Study quality is good. Images obtained after rest and stress injections show normal LV activity.LV and RV volumes appear normal. Gated images obtained at rest and with stress show normal LV wall motion and thickening.LVEF at rest is 60%. LVEF at stress is 54%. IMPRESSION: 1. Normal study.2. Appropriate pharmacologic stress.3. Normal myocardial perfusion.4. Normal resting LV function. Normal stress function.5. Normal extracardiac tracer distribution.6. No previous [facility] study for comparison. NONINVASIVE RISK STRATIFICATION: The above findings are considered low risk (<1% annual mortality rate) based on the following criterion: - Normal or small myocardial perfusion defect at rest or with stress JACC. 2012;59(9):857-33.) Signed: Arsen Russell MD Report Verified Date/Time:10/07/2017 15:43:06 Reading Location: [address] [place] [address] Reading Room Procedure Note Interface, External Ris In - 10/07/2017 3:45 PM LOGISTICS LEAD FINAL REPORT PROCEDURE: Rest/Stress MYOCARDIAL PERFUSION PET with regadenoson\\XA9\\ CPT CODE: 90150 INDICATION: Abnormal troponins HISTORY: Cardiac risk factors: The age, sex, hypertension, lipid abnormality, peripheral vascular disease. Other cardiovascular history: CHF, dyspnea, ventricular arrhythmia. Recent cardiac symptoms: Dyspnea. Current cardiovascular-related medications: Plavix, Coreg, Lasix, nifedipine, Imdur, hydralazine, atorvastatin. PROTOCOL: Limited low-dose CT imaging was performed for attenuation correction. 40.1 mCi of Rb-82 chloride was injected iv at rest, and gated PET (positron emission tomography) images were obtained. Subsequently, 40 mCi of Rb-82 chloride was injected iv at expected peak pharmacologic effect, and gated PET images were obtained. PRELIMINARY STRESS TEST DATA FROM NONINVASIVE CARDIOLOGY: Pharmacologic stress was by 10-second iv infusion of 0.4 mg of regadenoson. Radiotracer was injected 30 seconds after start of stress. Heart rate was 70 beats/min at rest and 75 beats/min (53% of MPHR) at tracer injection. BP was 160/45 mmHg at rest and 157/40 mmHg at tracer injection. Stress was stopped for predetermined endpoint. The patient experienced dyspnea; treatment was not required. Preliminary ECG evaluation revealed sinus rhythm at rest and no ischemic changes with stress. (Final ECG interpretation and other stress and monitoring data are reported separately by Cardiology.) IMAGING FINDINGS: Study quality is good. Images obtained after rest and stress injections show normal LV activity. LV and RV volumes appear normal. Gated images obtained at rest and with stress show normal LV wall motion and thickening. LVEF at rest is 60%. LVEF at stress is 54%. IMPRESSION: 1. Normal study. 2. Appropriate pharmacologic stress. 3. Normal myocardial perfusion. 4. Normal resting LV function. Normal stress function. 5. Normal extracardiac tracer distribution. 6. No previous [facility] study for comparison. NONINVASIVE RISK STRATIFICATION: The above findings are considered low risk (<1% annual mortality rate) based on the following criterion: - Normal or small myocardial perfusion defect at rest or with stress [facility] 2012;59(9):857-81.) Signed: Arsen Russell MD Report Verified Date/Time: 10/07/2017 15:43:06 Reading Location: [address] [place] [address] Reading Room * Treadmill tolerance(Non-Nuclear Treadmill) (10/07/2017 2:03 PM) Specimen Performing Laboratory GE MUSE Narrative Protocol Name Regadenoson Time In Exercise Phase 00:01:00 Max. Systolic BP 157 mmHg Max Diastolic BP 40 mmHg Max Heart Rate 75 BPM Max Predicted Heart Rate 139 BPM Reason For Termination Predetermined end point Reason for Test Elevated Troponin I Target HR Formula (220 - Age)*100% Arrhythmias atrial premature beats ventricular premature beats Resting ECG Normal sinus rhythm ST Changes No Significant Changes Overall Impression Indeterminate due to pharmacological stress Chest Pain none HR Response To Exercise BP Response To Exercise plavix COREG LASIX NIFEDIPINE Imdur Hydralyzine Atorvastatin Confirmed by fellow Yo Pennington ([id number]) on 10/10/2017 9:51:33 AM Confirmed by MD DEVIN, IHAB ([id number]) on 10/10/2017 2:24:04 PM Procedure Note Interface, External Ris In - 10/10/2017 2:24 PM LOGISTICS LEAD Protocol Name Regadenoson Time In Exercise Phase 00:01:00 Max. Systolic BP 157 mmHg Max Diastolic BP 40 mmHg Max Heart Rate 75 BPM Max Predicted Heart Rate 139 BPM Reason For Termination Predetermined end point Reason for Test Elevated Troponin I Target HR Formula (220 - Age)*100% Arrhythmias atrial premature beats ventricular premature beats Resting ECG Normal sinus rhythm ST Changes No Significant Changes Overall Impression Indeterminate due to pharmacological stress Chest Pain none HR Response To Exercise BP Response To Exercise plavix COREG LASIX NIFEDIPINE Imdur Hydralyzine Atorvastatin Confirmed by fellow Yo Pennington ([id number]) on 10/10/2017 9:51:33 AM Confirmed by MD DEVIN, IHAB ([id number]) on 10/10/2017 2:24:04 PM * Type and screen, automated (10/07/2017 6:28 AM) Only the most recent of 3 results within the time period is included. Component Value Ref Range Ab Scrn NEGATIVEComment: ECHO 1 Specimen Performing Laboratory Blood - Line, Venous [facility] [address] [place] [address] * ABORH, manual (10/07/2017 6:28 AM) Only the most recent of 2 results within the time period is included. Component Value Ref Range ABO Grouping O Rh Factor POS Specimen Performing Laboratory Blood - Line, Venous [facility] [address] [place] [address] * Glucose, body fluid (10/05/2017 6:07 PM) Component Value Ref Range Glucose, Body Fluid 102 70 - 110 mg/dL Specimen Performing Laboratory Body Fluid - Pleural, [facility] Right [address] [place] [address] Narrative Absence of reference range indicates that normals have not been defined. Assay performance has not been validated for this type of specimen. * Body fluid culture + gram stain (10/05/2017 6:07 PM) Component Value Ref Range Result No growth Gram Stain Result <1+ WBCs Gram Stain Result No organisms seen Specimen Performing Laboratory Body Fluid - Pleural, [facility] Right [address] [place] [address] * Body fluid cell count with differential (10/05/2017 6:07 PM) Component Value Ref Range Appearance Clear Clear Color Yellow (A) Colorless, Straw RBCs 80 (H) <=1 /cu mm Adjusted WBC Count 16 (H) <=5 /cu mm Lining Cells 0 <=1 /cu mm % Segs 34 % % Lymphs 30 % % Monos 36 % % Eos 0 % % Baso 0 % Container Body Fluid EDTA Tube Specimen Performing Laboratory Body Fluid - Pleural, [facility] Right [address] [place] [address] * Protein, body fluid (10/05/2017 6:07 PM) Component Value Ref Range Protein, Fluid 1.2 Light's criteria identifies effusions if one or more are present: Pleural to serum protein ratio of more than 0.5; Pleural to Serum LDH of more than 0.6; Pleural LDH of more than two third of upper serum reference limit g/dL Specimen Performing Laboratory Body Fluid - Pleural, [facility] Right [address] [place] [address] Narrative Absence of reference range indicates that normals have not been defined. Assay performance has not been validated for this type of specimen. * Lactate dehydrogenase (LDH), body fluid (10/05/2017 6:07 PM) Component Value Ref Range LDH, Fluid <90 Light's criteria identifies effusions if one or more are present: Pleural to serum protein ratio of more than 0.5; Pleural to serum LDH ratio of more than 0.6; Pleural LDH more than two third of upper serum reference limit U/L Specimen Performing Laboratory Body Fluid - Pleural, [facility] Right [address] [place] [address] Narrative Absence of reference range indicates that normals have not been defined. Assay performance has not been validated for this type of specimen. * US thoracentesis (10/05/2017 5:50 PM) Specimen Performing Laboratory GE RIS Narrative FINAL REPORT Indication: Right pleural effusion. Technique: Ultrasound guided Right thoracentesis. Findings: Preliminary ultrasound confirms a right pleural effusion. A safe window was identified. The procedure was explained to the patient and informed consent was signed. Timeout was performed. The skin was marked and prepped in standard sterile fashion. 1% lidocaine was used for local anesthesia. A 5 Czech needle catheter system was advanced into the pleural space. 1,200 cc straw-colored fluid was taken off. Sample of the fluid was left bedside to be sent to the laboratory at the primary team's discretion. Impression: Ultrasound guided Right thoracentesis. Signed: Tushar Walton MD Report Verified Date/Time:10/06/2017 08:27:47 Reading Location: [address] Transitional Reading Room Procedure Note Interface, External Ris In - 10/06/2017 8:30 AM LOGISTICS LEAD FINAL REPORT Indication: Right pleural effusion. Technique: Ultrasound guided Right thoracentesis. Findings: Preliminary ultrasound confirms a right pleural effusion. A safe window was identified. The procedure was explained to the patient and informed consent was signed. Timeout was performed. The skin was marked and prepped in standard sterile fashion. 1% lidocaine was used for local anesthesia. A 5 Czech needle catheter system was advanced into the pleural space. 1,200 cc straw-colored fluid was taken off. Sample of the fluid was left bedside to be sent to the laboratory at the primary team's discretion. Impression: Ultrasound guided Right thoracentesis. Signed: Tushar Walton MD Report Verified Date/Time: 10/06/2017 08:27:47 Reading Location: [address] Transitional Reading Room * Prothrombin time/INR (10/05/2017 2:05 PM) Component Value Ref Range Protime 14.3 11.7 - 14.7 seconds INR 1.1 <=5.9 Specimen Performing Laboratory Blood - [place], Right [address] [address] Narrative RECOMMENDED COUMADIN/WARFARIN INR THERAPY RANGES STANDARD DOSE: 2.0 - 3.0 Includes: PROPHYLAXIS for venous thrombosis, systemic embolization; TREATMENT for venous thrombosis and/or pulmonary embolus. HIGH RISK: Target INR is 2.5-3.5 for patients with mechanical heart valves. * Lactate dehydrogenase (LDH) (10/05/2017 12:01 PM) Only the most recent of 3 results within the time period is included. Component Value Ref Range LDH 219 125 - 220 U/L Specimen Performing Laboratory Blood [address] [address] * Vitamin D, 25-Hydroxy (10/05/2017 5:19 AM) Component Value Ref Range Vitamin D 25-Hydroxy 13.0 6.6 - 49.9 ng/mL Specimen Performing Laboratory Blood - Line, Venous [address] [address] Narrative Effective 08/24/2017: Reference Range Change New: 6.6-49.9 ng/mL Previous: 13.0-47.8 ng/mL Recommended Vitamin D Target Range: 30.0-40.0 ng/mL * US Renal with Doppler (10/03/2017 12:20 PM) Specimen Performing Laboratory [employer] Narrative FINAL REPORT Ultrasound of the Kidneys and Doppler Evaluation Clinical History:Acute on chronic renal failure Discussion: Sonographic evaluation of the kidneys is performed.In addition, color Doppler and spectral waveform analysis evaluations of the renal vasculature are performed. Right kidney:Measures 10.9 x 4 x 5.5 cm in length, with cortical thickness of 1.3 cm.Increased cortical echogenicity.No mass.No shadowing calculus.No hydronephrosis. There is a 1.9 cm simple cyst in the superior pole of the right kidney. There is a 1.6 cm simple cyst in the midportion of the right kidney. Left kidney: Measures 10.5 x 5.6 x 6.3 cm in length, with cortical thickness of 1.4 cm.Increased cortical echogenicity.No mass.No shadowing calculus.No hydronephrosis Fluid:No perinephric fluid. Bladder:Collapsed by Sen catheter and suboptimally evaluated. Doppler:Segments of the main renal arteries and renal veins sampled demonstrate flow. There is elevation of the resistive indices obtained at the renal parenchymal arcuate arteries, ranging from 0.75 to 0.82. Impression: 1.Unremarkable renal doppler evaluation except for elevation of the resistive indices, a nonspecific finding seen in a variety of renal diseases. 2. Mildly increased cortical echogenicity of the kidneys, in keeping with chronic kidney disease. 3. No hydronephrosis. 4. Simple right renal cysts measuring up to 1.9 cm. Signed: Andrew English MD Report Verified Date/Time:10/03/2017 15:03:38 Reading Location: [place] [id number] Ultrasound Reading Room Procedure Note Interface, External Ris In - 10/03/2017 3:05 PM LOGISTICS LEAD FINAL REPORT Ultrasound of the Kidneys and Doppler Evaluation Clinical History: Acute on chronic renal failure Discussion: Sonographic evaluation of the kidneys is performed. In addition, color Doppler and spectral waveform analysis evaluations of the renal vasculature are performed. Right kidney: Measures 10.9 x 4 x 5.5 cm in length, with cortical thickness of 1.3 cm. Increased cortical echogenicity. No mass. No shadowing calculus. No hydronephrosis. There is a 1.9 cm simple cyst in the superior pole of the right kidney. There is a 1.6 cm simple cyst in the midportion of the right kidney. Left kidney: Measures 10.5 x 5.6 x 6.3 cm in length, with cortical thickness of 1.4 cm. Increased cortical echogenicity. No mass. No shadowing calculus. No hydronephrosis Fluid: No perinephric fluid. Bladder: Collapsed by Sen catheter and suboptimally evaluated. Doppler: Segments of the main renal arteries and renal veins sampled demonstrate flow. There is elevation of the resistive indices obtained at the renal parenchymal arcuate arteries, ranging from 0.75 to 0.82. Impression: 1. Unremarkable renal doppler evaluation except for elevation of the resistive indices, a nonspecific finding seen in a variety of renal diseases. 2. Mildly increased cortical echogenicity of the kidneys, in keeping with chronic kidney disease. 3. No hydronephrosis. 4. Simple right renal cysts measuring up to 1.9 cm. Signed: Andrew English MD Report Verified Date/Time: 10/03/2017 15:03:38 Reading Location: [address] Ultrasound Reading Room * Manual Differential (10/02/2017 5:03 AM) Component Value Ref Range Total Counted WBC Morphology Normal Platelet Morphology Normal Anisocytosis 2+ moderate Olema Cells 2+ moderate Poikilocytes 1+ few Specimen Performing Laboratory Blood - Line, [place] [address] * Peripheral Blood Smear - Path Review (10/02/2017 5:03 AM) Only the most recent of 2 results within the time period is included. Component Value Ref Range RBC Morphology Anisocytosis Poikilocytosis Pathologist: Stephanie Christy M.D. (electronic signature) Specimen Performing Laboratory Blood - Line, [address] [address] * Hepatic function panel (10/02/2017 5:03 AM) Only the most recent of 3 results within the time period is included. Component Value Ref Range Protein, Total 6.2Comment: Specimen slightly hemolyzed 6.0 - 8.3 gm/dL Albumin 3.3 (L)Comment: Specimen slightly hemolyzed 3.5 - 5.0 g/dL Total Bilirubin 0.7Comment: Specimen slightly hemolyzed 0.2 - 1.2 mg/dL Bilirubin, Direct 0.3Comment: Specimen slightly hemolyzed 0.1 - 0.5 mg/dL Alkaline Phosphatase 60 40 - 150 U/L AST 15Comment: Specimen slightly hemolyzed 5 - 34 U/L ALT 6Comment: Specimen slightly hemolyzed 6 - 55 U/L Specimen Performing Laboratory Blood - Line, [address] [address] * Iron, TIBC, % sat. (without ferritin) (10/01/2017 3:13 PM) Only the most recent of 3 results within the time period is included. Component Value Ref Range Iron 33 (L) 40 - 160 ug/dL TIBC 186 (L) 250 - 450 ug/dL Iron % Saturation 18 (L) 20 - 55 % Specimen Performing Laboratory Blood - Line, [address] [address] * Reticulocyte count (10/01/2017 3:13 PM) Only the most recent of 3 results within the time period is included. Component Value Ref Range % Retic 2.2 (H) 0.5 - 1.7 % Specimen Performing Laboratory Blood - Line, [address] [address] * Protein electrophoresis, serum (10/01/2017 3:13 PM) Component Value Ref Range Albumin Fraction 3.3 (L) 3.5 - 5.5 g/dL Alpha 1 Fraction 0.4 0.2 - 0.4 g/dL Alpha 2 Fraction 0.7 0.5 - 0.9 g/dL Beta Fraction 0.8 0.6 - 1.1 g/dL Gamma Globulin Fraction 0.8 0.7 - 1.7 g/dL Interpretation All fractions present in expected distribution. No monoclonal bands detected. Pathologist: Kacie Kirby MD (electronic signature) Protein, Total 6.0 6.0 - 8.3 gm/dL Specimen Performing Laboratory Blood - Line, [address] [address] * PTH, intact (10/01/2017 3:13 PM) Only the most recent of 2 results within the time period is included. Component Value Ref Range PTH 223.4 (H) 8.5 - 72.5 pg/mL Specimen Performing Laboratory Blood - Line, [address] [address] * Haptoglobin (10/01/2017 3:13 PM) Only the most recent of 2 results within the time period is included. Component Value Ref Range Haptoglobin 104 14 - 258 mg/dL Specimen Performing Laboratory Blood - Line, [address] [address] * Ferritin (10/01/2017 3:13 PM) Only the most recent of 3 results within the time period is included. Component Value Ref Range Ferritin 1019 (H) 5 - 275 ng/mL Specimen Performing Laboratory Blood - Line, [address] [address] * Protein, random urine (10/01/2017 3:06 PM) Only the most recent of 2 results within the time period is included. Component Value Ref Range Protein, Urine 62 (H) 0 - 14 mg/dL Specimen Performing Laboratory Urine - Urine, [address] [address] * Urine Protein Electrophoresis, random (10/01/2017 3:06 PM) Component Value Ref Range Protein, Urine 62 (H) 0 - 14 mg/dL Albumin %, Urine 80.9 % Globulin %, Urine 19.1 % UPEP,ID No monoclonal bands detected. Pathologist: Kacie Kirby MD (electronic signature) Specimen Performing Laboratory Urine - Urine, [address] [address] * Creatinine, random urine (10/01/2017 3:06 PM) Only the most recent of 2 results within the time period is included. Component Value Ref Range Creatinine, Ur 82.2 mg/dL Specimen Performing Laboratory Urine - Urine, [address] [address] Narrative Reference Range: No Normals * Urinalysis w/Microscopic (10/01/2017 3:06 PM) Only the most recent of 3 results within the time period is included. Component Value Ref Range Color, UA Yellow Clarity, UA Hazy Specific [place], UA 1.009 1.001 - 1.035 pH, UA 5.5 5.0 - 8.0 Protein, UA 50 mg/dL (A) Negative Glucose, UA Negative Negative Ketones, UA Negative Negative Bilirubin, UA Negative Negative Blood, UA Negative Negative Nitrite, UA Negative Negative Leukocytes, UA Moderate (A) Negative Urobilinogen, UA 0.2 0.2 - 1.0 mg/dL RBC, UA <1 /HPF WBC, UA 3 /HPF Bacteria, UA Many Squam Epithel, UA <1 /HPF Hyaline Casts, UA 2 /LPF Casts 2 /LPF Crystals, Urine Rare Specimen Source Urine, [place] Specimen Performing Laboratory Urine - Urine, Sen [address] [address] * 2D Echo W/Doppler(CW/PW/Color) (10/01/2017 2:12 PM) Only the most recent of 2 results within the time period is included. Component Value Ref Range Ejection Fraction Specimen Performing Laboratory [facility] ECHO HEARTLAB MKCKESSHANNAH CPACS Narrative Transthoracic Echocardiography Report (TTE) Demographics Patient NameCALCHRISTIAN MESSERate of Study 10/01/2017 ASTRID Female Visit [id number] Unknown Room Number 7309 Number Date of 1935Referring Physician Age 82 year(s)Curriculum Supervisor Gregorio Ritter [facility]ting[facility] Needs [facility] be Physician Pre Read Rashid Hernandez MD FellowJuMARCELLA Wade Procedure Type of Study TTE procedure:2DECHO W DOPPLER(CW/PW/COLOR) (STAT) Indications:Shortness of breath. Clinical History HGB 8.8 HCT 28.0 % ANEMIA CKD CHF COPD HTN HLD GERD FORMER PVC PVD Height: 65 inches Weight: 57.61 kg (127 lbs) BSA: 1.63 m^2 BMI: 21.13 kg/m^2 HR: 85 bpm BP: 180/71 mmHg Summary Grade 2 diastolic dysfunction (moderately increased LA pressure). Moderate concentric LV hypertrophy. Global LV systolic function normal . LVEF by Moseley's method of disk assessment is normal (55-60%) . All of the LV segments contract normally . Grade 2 diastolic dysfunction (moderately increased LA pressure). The right ventricular chamber size and systolic function are within normal limits. Mild mitral regurgitation. Estimated peak systolic PA pressure is 55-60 mmHg . A bfawo-lp-zctwpyvb pericardial effusion is present around RA. Signature Findings Technical Quality: Technically adequate exam. Rhythm/BPIrregular rhythm during the exam. Left Ventricle Moderate concentric LV hypertrophy. Global LV systolic function normal . LVEF by Moseley's method of disk assessment is normal (55 -60%) . All of the LV segments contract normally . Grade 2 diastolic dysfunction ( moderately increased LA pressure). Left AtriumLA size is severely enlarged (>48 ml/m2) . Right VentricleThe right ventricular chamber size and systolic function are within normal limits. Right Atrium RA size is normal. Aortic Valve No evidence of aortic regurgitation. Moderate AoV cusp thickening. Gffo-hd-itbmkfdr AoV cusp calcification. Mitral Valve Mild MV leaflet thickening. Lbvq-gf-frhmyyug mitral annular calcification. Mild mitral regurgitation. Tricuspid ValveTV structure is normal. Mild tricuspid regurgitation. Estimated peak systolic PA pressure is 55-60 mmHg . Pulmonic Valve PV is not well visualized; function appears normal by Doppler visualized. AortaAortic root size (SInus of Valsalva diameter) is normal . PericardiumA iomod-hx-gmnbwvbg pericardial effusion is present around RA. IVC/SVC/PA/PV/PleuralThe inferior vena cava is adequately visualized. The estimated RA pressure by IVC dynamics 5-10mmHg . Chambers/Structures Left Atrium LA Volume: 92.49 ml LA Area: 29.57 cm^2 LA Vol. Index: 57 ml/m^2 Left Ventricle LVIDd: 4.64 cm LV Septum Diastolic: 1.48 cm LV PW Diastolic: 1.36 cm LVEDV Moseley's:80.57 ml LVESV Moseley's:35.61 ml LVEF Moseley's: 55.8 %LVEDVI: 49 ml /m^2 LVESVI: 22 ml/m^2 LVOT Diameter: 2.03 cm Doppler/Quantitative Measurements Mitral Valve MV Peak E-Wave: 1.36 m/sMV Peak A-Wave: 1.08 m/s E/ A Ratio: 1.26 Peak Gradient: 7.39 mmHg Deceleration Time: 80.5 msec MV Nic. Peak: Tissue Doppler E' Septal Velocity: 0.04 m/sE/E': 18.23 E' Lateral Velocity: 0.07 m/s Aortic Valve Peak Velocity: 1.21 m/sMean Velocity: 0.8 m /s Peak Gradient: 5.88 mmHg Mean Gradient: 3.01 mmHg AV Area (continuity): 3.05 cm^2 AV VTI: 26.17 cm AV DVI: 0.94 LVOT Peak Velocity: 1.03 m/s Peak Gradient: 4.25 mmHg Mean Velocity: 0.71 m/s Mean Gradient: 2.38 mmHg LVOT Diameter: 2.03 cmLVOT VTI: 24.68 cm LVOT Area: 3.24 cm^2LVOT SV:79.84 ml LVOT CO: 6.79 l/min LVOT CI: 4.17 l/min/m^2 Procedure Note Interface, External Ris In - 10/02/2017 3:28 PM LOGISTICS LEAD Transthoracic Echocardiography Report (TTE) Demographics Patient Name IVONNE FALCON Date of Study 10/01/2017 ASTRID Gender Female Visit Number [id number] Race Unknown Room Number 7309 Number Date of 1935 Referring Physician Age 82 year(s) Curriculum Supervisor Gregorio Ritter Interpreting [facility] Needs to be Physician Pre Read Rashid Hernandez MD Fellow MARCELLA Rubio Procedure Type of Study TTE procedure:2DECHO W DOPPLER(CW/PW/COLOR) (STAT) Indications:Shortness of breath. Clinical History HGB 8.8 HCT 28.0 % ANEMIA CKD CHF COPD HTN HLD GERD FORMER PVC PVD Height: 65 inches Weight: 57.61 kg (127 lbs) BSA: 1.63 m^2 BMI: 21.13 kg/m^2 HR: 85 bpm BP: 180/71 mmHg Summary Grade 2 diastolic dysfunction (moderately increased LA pressure). Moderate concentric LV hypertrophy. Global LV systolic function normal . LVEF by Moseley's method of disk assessment is normal (55-60%) . All of the LV segments contract normally . Grade 2 diastolic dysfunction (moderately increased LA pressure). The right ventricular chamber size and systolic function are within normal limits. Mild mitral regurgitation. Estimated peak systolic PA pressure is 55-60 mmHg . A lnrgv-im-fypiqpcg pericardial effusion is present around RA. Signature Findings Technical Quality: Technically adequate exam. Rhythm/BP Irregular rhythm during the exam. Left Ventricle Moderate concentric LV hypertrophy. Global LV systolic function normal . LVEF by Moseley's method of disk assessment is normal (55-60%) . All of the LV segments contract normally . Grade 2 diastolic dysfunction (moderately increased LA pressure). Left Atrium LA size is severely enlarged (>48 ml/m2) . Right Ventricle The right ventricular chamber size and systolic function are within normal limits. Right Atrium RA size is normal. Aortic Valve No evidence of aortic regurgitation. Moderate AoV cusp thickening. Zhwt-qm-itxczkdo AoV cusp calcification. Mitral Valve Mild MV leaflet thickening. Yitj-pb-xjpaitcd mitral annular calcification. Mild mitral regurgitation. Tricuspid Valve TV structure is normal. Mild tricuspid regurgitation. Estimated peak systolic PA pressure is 55-60 mmHg . Pulmonic Valve PV is not well visualized; function appears normal by Doppler visualized. Aorta Aortic root size (SInus of Valsalva diameter) is normal . Pericardium A cbcdd-ky-zrmagaro pericardial effusion is present around RA. IVC/SVC/PA/PV/Pleural The inferior vena cava is adequately visualized. The estimated RA pressure by IVC dynamics 5-10mmHg . Chambers/Structures Left Atrium LA Volume: 92.49 ml LA Area: 29.57 cm^2 LA Vol. Index: 57 ml/m^2 Left Ventricle LVIDd: 4.64 cm LV Septum Diastolic: 1.48 cm LV PW Diastolic: 1.36 cm LVEDV Moseley's:80.57 ml LVESV Moseley's:35.61 ml LVEF Moseley's: 55.8 % LVEDVI: 49 ml/m^2 LVESVI: 22 ml/m^2 LVOT Diameter: 2.03 cm Doppler/Quantitative Measurements Mitral Valve MV Peak E-Wave: 1.36 m/s MV Peak A-Wave: 1.08 m/s E/A Ratio: 1.26 Peak Gradient: 7.39 mmHg Deceleration Time: 80.5 msec MV Nic. Peak: Tissue Doppler E' Septal Velocity: 0.04 m/s E/E': 18.23 E' Lateral Velocity: 0.07 m/s Aortic Valve Peak Velocity: 1.21 m/s Mean Velocity: 0.8 m/s Peak Gradient: 5.88 mmHg Mean Gradient: 3.01 mmHg AV Area (continuity): 3.05 cm^2 AV VTI: 26.17 cm AV DVI: 0.94 LVOT Peak Velocity: 1.03 m/s Peak Gradient: 4.25 mmHg Mean Velocity: 0.71 m/s Mean Gradient: 2.38 mmHg LVOT Diameter: 2.03 cm LVOT VTI: 24.68 cm LVOT Area: 3.24 cm^2 LVOT SV:79.84 ml LVOT CO: 6.79 l/min LVOT CI: 4.17 l/min/m^2 * Critical Care (10/01/2017 8:02 AM) Narrative Koko Anne MD 10/01/20178:02 AM Critical Care Performed by: KOKO ANNE Authorized by: KOKO ANNE Total critical care time: 42 minutes Critical care time was exclusive of separately billable procedures and treating other patients and teaching time. Critical care was necessary to treat or prevent imminent or life-threatening deterioration of the following conditions: respiratory failure. Critical care was time spent personally by me on the following activities: development of treatment plan with patient or surrogate, discussions with consultants, discussions with primary provider, interpretation of cardiac output measurements, evaluation of patient's response to treatment, examination of patient, obtaining history from patient or surrogate, ordering and performing treatments and interventions, ordering and review of laboratory studies, ordering and review of radiographic studies, pulse oximetry, re-evaluation of patient's condition and review of old charts. * Blood culture (10/01/2017 8:02 AM) Only the most recent of 2 results within the time period is included. Component Value Ref Range Result No growth in 5 days Specimen Performing Laboratory Blood - Line, Venous [facility] [address] [address] * TSH/Free T4 If Indicated (07/26/2017 4:28 AM) Only the most recent of 2 results within the time period is included. Component Value Ref Range TSH 0.28 (L) 0.35 - 4.94 uIU/mL Specimen Performing Laboratory Blood [address] [address] * T4, free (07/26/2017 4:28 AM) Only the most recent of 2 results within the time period is included. Component Value Ref Range Free T4 1.08 0.70 - 1.48 ng/dL Specimen Performing Laboratory Blood [address] [address] * Calcium, Ionized (07/25/2017 1:14 PM) Component Value Ref Range Calcium, Ion 1.12 1.12 - 1.27 mmol/L pH, Blood 7.50 Specimen Performing Laboratory Blood [address] [address] * XR chest 2 views (07/25/2017 1:10 PM) Specimen Performing Laboratory GE RIS Narrative FINAL REPORT EXAM: Frontal and lateral chest radiograph HISTORY: Abnormal lab, generalized weakness COMPARISON: 07/07/2017 IMPRESSION: Minimal linear opacities within lung bases, left greater than right likely represent atelectasis, although underlying airspace disease is not excluded. No pneumothorax or significant pleural fluid is identified. The cardiomediastinal silhouette is within normal limits. Atherosclerotic calcification of the aorta. Degenerative changes of the spine are present. No acute osseous abnormality is identified. Signed: Fabiola Goldsmith MD Report Verified Date/Time:07/25/2017 13:37:48 Reading Location: [facility] Mammo Reading Room Procedure Note Interface, External Ris In - 07/25/2017 1:40 PM CDT FINAL REPORT EXAM: Frontal and lateral chest radiograph HISTORY: Abnormal lab, generalized weakness COMPARISON: 07/07/2017 IMPRESSION: Minimal linear opacities within lung bases, left greater than right likely represent atelectasis, although underlying airspace disease is not excluded. No pneumothorax or significant pleural fluid is identified. The cardiomediastinal silhouette is within normal limits. Atherosclerotic calcification of the aorta. Degenerative changes of the spine are present. No acute osseous abnormality is identified. Signed: Fabiola Goldsmith MD Report Verified Date/Time: 07/25/2017 13:37:48 Reading Location: [facility] Mammo Reading Room * Platelet Aggregation: Function Screen (07/07/2017 5:26 AM) Component Value Ref Range Weak ADP 88 60 - 91 % Plt. Function Screen 60-100% indicates normal platelet function Interpretation Pathologist: Cj Pablo M.D. (electonic signature) Platelets 253 150 - 450 K/CU MM Specimen Performing Laboratory Blood [address] [address] * Vitamin B12 and Folate (07/01/2017 6:12 AM) Component Value Ref Range Vitamin B12 398 213 - 816 pg/mL Folate 7.9 >=7.0 ng/mL Specimen Performing Laboratory Blood - Arm, [address] [address] Narrative Effective 10/01/2014: Folate Reference Range Change New: >=7.0Previous: >=5.4 * Direct AHG (CLAUDETTE)/Direct Joann (07/01/2017 6:12 AM) Component Value Ref Range Direct AHG-IGG NEGATIVE Direct AHG-C3B, C3D NEGATVIE Specimen Performing Laboratory Blood - Arm, [address] [address] * Hemoglobin A1c (07/01/2017 6:12 AM) Component Value Ref Range Hemoglobin A1C 4.7 4.3 - 6.1 % Specimen Performing Laboratory Blood - Arm, [address] [address] * Ethanol (07/01/2017 6:12 AM) Component Value Ref Range Ethanol Lvl <10 <=10 mg/dL Specimen Performing Laboratory Blood - Arm, [address] [address] * Lipid panel (07/01/2017 6:12 AM) Component Value Ref Range Triglycerides 43 mg/dL Cholesterol 160 mg/dL HDL 61 mg/dL LDL Calculated 90 mg/dL Specimen Performing Laboratory Blood - Arm, Left [facility] [address] [place] [address] Narrative Triglyceride Reference Range: Low Risk <150 [id number] High Risk 200-499 Very High Risk>=500 Cholesterol Reference Range: Low Risk <200 [id number] High Risk>240 HDL Cholesterol Reference Range: Low Risk >=60 High Risk <40 LDL Cholesterol Reference Range: Optimal<100 Near [id number] Very High >=190 * US renal complete (07/01/2017) Specimen Performing Laboratory GE RIS Narrative FINAL REPORT U/S, RENAL, COMPLETE CLINICAL INDICATION:"renal failure" COMPARISON: CT abdomen and pelvis in 2012 TECHNIQUE:The kidneys and urinary bladder were evaluated using real time castro scale and color Doppler sonography. FINDINGS: Right kidney: Multiple renal cysts, similar to the prior CT scan. No hydronephrosis. Left kidney: Large inferior pole cyst similar to the prior CT scan. No hydronephrosis. Renal Vasculature: Doppler interrogation reveals preserved vascular flow in the main renal arteries and veins bilaterally. The visualized portions of the abdominal aorta and IVC are unremarkable. Urinary bladder: Unremarkable. IMPRESSION: Bilateral renal cysts. No hydronephrosis. Signed: Darwin Valdez MD Report Verified Date/Time:07/01/2017 00:41:23 Reading Location: [address] Transitional Reading Room Procedure Note Interface, External Ris In - 07/01/2017 12:43 AM CDT FINAL REPORT U/S, RENAL, COMPLETE CLINICAL INDICATION: "renal failure" COMPARISON: CT abdomen and pelvis in 2012 TECHNIQUE: The kidneys and urinary bladder were evaluated using real time castro scale and color Doppler sonography. FINDINGS: Right kidney: Multiple renal cysts, similar to the prior CT scan. No hydronephrosis. Left kidney: Large inferior pole cyst similar to the prior CT scan. No hydronephrosis. Renal Vasculature: Doppler interrogation reveals preserved vascular flow in the main renal arteries and veins bilaterally. The visualized portions of the abdominal aorta and IVC are unremarkable. Urinary bladder: Unremarkable. IMPRESSION: Bilateral renal cysts. No hydronephrosis. Signed: Darwin Valdez MD Report Verified Date/Time: 07/01/2017 00:41:23 Reading Location: [facility] B1 C013T Transitional Reading Room * Transfusion Reaction Investigation (06/30/2017 5:08 AM) Component Value Ref Range TRANSFUSION RX SEE COMMENTComment: Possible transfusion INVESTIGATION(BEAKER) associated circulatory overload. Potential need for duiretics. Correlation with clinical follow up required.Electronic Signature: Channing Mcfarlane M.D. Specimen Performing Laboratory Blood - Arm, [place] [address] * Critical Care (06/29/2017 7:04 PM) Narrative Matti Perez MD 06/29/20177:04 PM Critical Care Performed by: MATTI PEREZ Authorized by: MATTI PEREZ Total critical care time: 35 minutes Critical care time was exclusive of separately billable procedures and treating other patients. Critical care was necessary to treat or prevent imminent or life-threatening deterioration of the following conditions: acute anemia from UGI bleed requiring transfusion. Critical care was time spent personally by me on the following activities: blood draw for specimens, development of treatment plan with patient or surrogate, evaluation of patient's response to treatment, examination of patient, obtaining history from patient or surrogate, ordering and performing treatments and interventions, ordering and review of laboratory studies, pulse oximetry, re-evaluation of patient's condition and review of old charts. * POCT OCCULT BLOOD STOOL (GUIAC) [facility] ED & CEC'S ONLY (06/29/2017 6:30 PM) Component Value Ref Range Fecal Occult Blood Positive (A) Negative (Guiac), POC QC Result Acceptable?, QC Acceptable POC FOB Card Lot #, POC [id number] FOB Developer Lot # [id number] Specimen Performing Laboratory Stool after 03/31/2017
--- OUTSIDE RECORDS SUMMARY | 2018-04-01 17:56 | XMS REPORT ---
[facility] Address Unknown Phone Unavailable Care Team Providers Care Wealth Management Director Name Role Phone DARCIE MARTIN Unavailable Unavailable ITA ANNE Unavailable Unavailable VU, TRIEN Unavailable Unavailable ALEXANDRIA, CHLOE Unavailable Unavailable MIKAYLA, MARGARET Unavailable Unavailable ALI, SANAH Unavailable Unavailable Problems This patient has no known problems. Allergies, Adverse Reactions, Alerts This patient has no known allergies or adverse reactions. Medications This patient has no known medications. Results Test Description Test Time Test Comments Text Results Atomic Results Result Comments RAD, KNEE, 1 OR 2 VIEWS, RIGHT 2017-12-24 08:40:00 Reason for exam:->pain FINAL REPORT COMPARISON: None TECHNIQUE: 2 views of the right knee. FINDINGS: There are no acute fractures or dislocations. No radiopaque foreign bodies. Joint spaces are maintained. Vascular calcifications are seen. Surgical clips over the upper catheter again noted. Suprapatellar joint effusion suspected. IMPRESSION: No acute bony abnormality. Signed: Parish Lora Verified Date/Time: 12/24/2017 08:40:16 Reading Location: [address] Transitional Reading Room PHORUS 2017-12-24 06:57:00 PHOSPHORUS (BEAKER) (test nooo=100) 2.8 mg/dL 2.3-4.7 [id number] 06:57:00* Test Item Value Reference Range Comments MAGNESIUM (BEAKER) (test woxg=994) 1.8 mg/dL 1.6-2.6 BASIC METABOLIC [id number] 06:57:00* Test Item Value Reference Range Comments SODIUM (BEAKER) (test qirv=390) 141 meq/L 136-145 POTASSIUM (BEAKER) (test qjkq=251) 3.3 meq/L 3.5-5.1 CHLORIDE (BEAKER) (test yfhp=011) 102 meq/L 98-107 CO2 (BEAKER) (test szro=703) 31 meq/L 22-29 BLOOD UREA NITROGEN (BEAKER) (test pksa=260) 44 mg/dL 7-21 CREATININE (BEAKER) (test zraf=052) 1.53 mg/dL 0.57-1.25 GLUCOSE RANDOM (BEAKER) (test pemd=332) 84 mg/dL 70-105 CALCIUM (BEAKER) (test znls=269) 8.8 mg/dL 8.4-10.2 EGFR (BEAKER) (test rwhh=9886) 39 mL/min/1.73 sq m ESTIMATED GFR IS NOT ACCURATE CREATININE CLEARANCE IN PREDICTING GLOMERULAR FILTRATION RATE. ESTIMATED GFR IS NOT APPLICABLE FOR DIALYSIS PATIENTS. CBC W/PLT COUNT & AUTO [id number] 06:46:00* Test Item Value Reference Range Comments WHITE BLOOD CELL COUNT (BEAKER) (test bepx=683) 5.7 K/ L 3.5-10.5 RED BLOOD CELL COUNT (BEAKER) (test bvzs=257) 2.41 M/ L 3.93-5.22 HEMOGLOBIN (BEAKER) (test uzni=677) 7.0 GM/DL 11.2-15.7 HEMATOCRIT (BEAKER) (test jknt=600) 22.8 % 34.1-44.9 MEAN CORPUSCULAR VOLUME (BEAKER) (test pbuv=628) 94.6 fL 79.4-94.8 MEAN CORPUSCULAR HEMOGLOBIN (BEAKER) (test eifz=776) 29.0 pg 25.6-32.2 MEAN CORPUSCULAR HEMOGLOBIN CONC (BEAKER) (test qukn=550) 30.7 GM/DL 32.2- 35.5 RED CELL DISTRIBUTION WIDTH (BEAKER) (test qtjm=239) 14.7 % 11.7-14.4 PLATELET COUNT (BEAKER) (test vhca=491) 227 K/CU MM 150-450 MEAN PLATELET VOLUME (BEAKER) (test dhjf=951) 9.8 fL 9.4-12.3 NUCLEATED RED BLOOD CELLS (BEAKER) (test vzpo=649) 0 /100 WBC 0-0 NEUTROPHILS RELATIVE PERCENT (BEAKER) (test emmr=715) 70 % LYMPHOCYTES RELATIVE PERCENT (BEAKER) (test sdds=403) 14 % MONOCYTES RELATIVE PERCENT (BEAKER) (test awfl=353) 14 % EOSINOPHILS RELATIVE PERCENT (BEAKER) (test nnyg=827) 0 % BASOPHILS RELATIVE PERCENT (BEAKER) (test biob=604) 0 % NEUTROPHILS ABSOLUTE COUNT (BEAKER) (test yxcg=640) 4.00 K/ L 1.56-6.13 LYMPHOCYTES ABSOLUTE COUNT (BEAKER) (test uyyx=136) 0.80 K/ L 1.18-3.74 MONOCYTES ABSOLUTE COUNT (BEAKER) (test embx=416) 0.80 K/ L 0.24-0.36 EOSINOPHILS ABSOLUTE COUNT (BEAKER) (test wbqo=069) 0.01 K/ L 0.04-0.36 BASOPHILS ABSOLUTE COUNT (BEAKER) (test ffcb=233) 0.01 K/ L 0.01-0.08 IMMATURE GRANULOCYTES-RELATIVE PERCENT (BEAKER) (test mlrm=6828) 1 % 0-1 [id number] 06:10:00* Test Item Value Reference Range Comments PHOSPHORUS (BEAKER) (test zxla=704) 2.6 mg/dL 2.3-4.7 [id number] 06:10:00* Test Item Value Reference Range Comments MAGNESIUM (BEAKER) (test gcxp=340) 1.9 mg/dL 1.6-2.6 BASIC METABOLIC [id number] 06:10:00* Test Item Value Reference Range Comments SODIUM (BEAKER) (test ymwz=644) 139 meq/L 136-145 POTASSIUM (BEAKER) (test twzg=968) 3.3 meq/L 3.5-5.1 CHLORIDE (BEAKER) (test uffk=176) 100 meq/L 98-107 CO2 (BEAKER) (test leqi=349) 29 meq/L 22-29 BLOOD UREA NITROGEN (BEAKER) (test ywds=919) 50 mg/dL 7-21 CREATININE (BEAKER) (test fcto=749) 1.64 mg/dL 0.57-1.25 GLUCOSE RANDOM (BEAKER) (test qvxe=211) 88 mg/dL 70-105 CALCIUM (BEAKER) (test rcjt=415) 9.0 mg/dL 8.4-10.2 EGFR (BEAKER) (test ulqs=0293) 36 mL/min/1.73 sq m ESTIMATED GFR IS NOT ACCURATE CREATININE CLEARANCE IN PREDICTING GLOMERULAR FILTRATION RATE. ESTIMATED GFR IS NOT APPLICABLE FOR DIALYSIS PATIENTS. CBC W/PLT COUNT & AUTO [id number] 06:00:00* Test Item Value Reference Range Comments WHITE BLOOD CELL COUNT (BEAKER) (test nloh=771) 6.8 K/ L 3.5-10.5 RED BLOOD CELL COUNT (BEAKER) (test oszo=562) 2.46 M/ L 3.93-5.22 HEMOGLOBIN (BEAKER) (test vnud=556) 7.1 GM/DL 11.2-15.7 HEMATOCRIT (BEAKER) (test yhvb=644) 22.9 % 34.1-44.9 MEAN CORPUSCULAR VOLUME (BEAKER) (test ckhj=462) 93.1 fL 79.4-94.8 MEAN CORPUSCULAR HEMOGLOBIN (BEAKER) (test ncfg=104) 28.9 pg 25.6-32.2 MEAN CORPUSCULAR HEMOGLOBIN CONC (BEAKER) (test qhta=622) 31.0 GM/DL 32.2- 35.5 RED CELL DISTRIBUTION WIDTH (BEAKER) (test poxg=276) 14.7 % 11.7-14.4 PLATELET COUNT (BEAKER) (test mvap=618) 215 K/CU MM 150-450 MEAN PLATELET VOLUME (BEAKER) (test fasx=252) 9.7 fL 9.4-12.3 NUCLEATED RED BLOOD CELLS (BEAKER) (test wfsr=609) 0 /100 WBC 0-0 NEUTROPHILS RELATIVE PERCENT (BEAKER) (test pcgw=196) 75 % LYMPHOCYTES RELATIVE PERCENT (BEAKER) (test sbxt=346) 13 % MONOCYTES RELATIVE PERCENT (BEAKER) (test jrvb=472) 11 % EOSINOPHILS RELATIVE PERCENT (BEAKER) (test akmi=468) 0 % BASOPHILS RELATIVE PERCENT (BEAKER) (test iagb=139) 0 % NEUTROPHILS ABSOLUTE COUNT (BEAKER) (test qjpf=300) 5.06 K/ L 1.56-6.13 LYMPHOCYTES ABSOLUTE COUNT (BEAKER) (test vrjl=934) 0.88 K/ L 1.18-3.74 MONOCYTES ABSOLUTE COUNT (BEAKER) (test pmis=404) 0.74 K/ L 0.24-0.36 EOSINOPHILS ABSOLUTE COUNT (BEAKER) (test hmgh=546) 0.01 K/ L 0.04-0.36 BASOPHILS ABSOLUTE COUNT (BEAKER) (test ifqv=252) 0.00 K/ L 0.01-0.08 IMMATURE GRANULOCYTES-RELATIVE PERCENT (BEAKER) (test hbob=7902) 1 % 0-1 [id number] 08:33:00* Test Item Value Reference Range Comments PHOSPHORUS (BEAKER) (test ekub=723) 3.1 mg/dL 2.3-4.7 [id number] 08:33:00* Test Item Value Reference Range Comments MAGNESIUM (BEAKER) (test ksmp=650) 1.8 mg/dL 1.6-2.6 BASIC METABOLIC [id number] 08:33:00* Test Item Value Reference Range Comments SODIUM (BEAKER) (test rhbv=369) 140 meq/L 136-145 POTASSIUM (BEAKER) (test jvss=370) 3.8 meq/L 3.5-5.1 CHLORIDE (BEAKER) (test xlld=112) 103 meq/L 98-107 CO2 (BEAKER) (test wbqm=131) 28 meq/L 22-29 BLOOD UREA NITROGEN (BEAKER) (test xxqv=760) 44 mg/dL 7-21 CREATININE (BEAKER) (test lvnh=387) 1.75 mg/dL 0.57-1.25 GLUCOSE RANDOM (BEAKER) (test poqj=960) 90 mg/dL 70-105 CALCIUM (BEAKER) (test oqsg=872) 9.0 mg/dL 8.4-10.2 EGFR (BEAKER) (test neya=6529) 34 mL/min/1.73 sq m ESTIMATED GFR IS NOT ACCURATE CREATININE CLEARANCE IN PREDICTING GLOMERULAR FILTRATION RATE. ESTIMATED GFR IS NOT APPLICABLE FOR DIALYSIS PATIENTS. CBC W/PLT COUNT & AUTO [id number] 08:21:00* Test Item Value Reference Range Comments WHITE BLOOD CELL COUNT (BEAKER) (test objv=822) 8.6 K/ L 3.5-10.5 RED BLOOD CELL COUNT (BEAKER) (test mscw=116) 2.42 M/ L 3.93-5.22 HEMOGLOBIN (BEAKER) (test hfby=851) 7.0 GM/DL 11.2-15.7 HEMATOCRIT (BEAKER) (test hiub=694) 22.8 % 34.1-44.9 MEAN CORPUSCULAR VOLUME (BEAKER) (test wevt=578) 94.2 fL 79.4-94.8 MEAN CORPUSCULAR HEMOGLOBIN (BEAKER) (test tqjt=441) 28.9 pg 25.6-32.2 MEAN CORPUSCULAR HEMOGLOBIN CONC (BEAKER) (test tbbq=966) 30.7 GM/DL 32.2- 35.5 RED CELL DISTRIBUTION WIDTH (BEAKER) (test mewi=671) 14.8 % 11.7-14.4 PLATELET COUNT (BEAKER) (test svof=295) 217 K/CU MM 150-450 MEAN PLATELET VOLUME (BEAKER) (test zdwi=771) 10.1 fL 9.4-12.3 NUCLEATED RED BLOOD CELLS (BEAKER) (test iasy=394) 0 /100 WBC 0-0 NEUTROPHILS RELATIVE PERCENT (BEAKER) (test xmrj=126) 85 % LYMPHOCYTES RELATIVE PERCENT (BEAKER) (test mujz=777) 5 % MONOCYTES RELATIVE PERCENT (BEAKER) (test tgbn=508) 10 % EOSINOPHILS RELATIVE PERCENT (BEAKER) (test pgec=417) 0 % BASOPHILS RELATIVE PERCENT (BEAKER) (test iphy=106) 0 % NEUTROPHILS ABSOLUTE COUNT (BEAKER) (test kmer=423) 7.29 K/ L 1.56-6.13 LYMPHOCYTES ABSOLUTE COUNT (BEAKER) (test plij=012) 0.43 K/ L 1.18-3.74 MONOCYTES ABSOLUTE COUNT (BEAKER) (test njqb=545) 0.85 K/ L 0.24-0.36 EOSINOPHILS ABSOLUTE COUNT (BEAKER) (test qzqa=941) 0.00 K/ L 0.04-0.36 BASOPHILS ABSOLUTE COUNT (BEAKER) (test giev=138) 0.01 K/ L 0.01-0.08 IMMATURE GRANULOCYTES-RELATIVE PERCENT (BEAKER) (test ilsx=8348) 1 % 0-1 POCT-GLUCOSE [id number] 07:52:00* Test Item Value Reference Range Comments POC-GLUCOSE METER (BEAKER) (test olft=4534) 109 mg/dL 70-110 TESTED AT [facility] [address] [facility] [address] CREATINE KINASE (CK), TOTAL AND [id number] 00:42:00* Test Item Value Reference Range Comments CREATINE KINASE TOTAL (BEAKER) (test qmza=591) 30 U/L 29-200 CREATINE KINASE-MB (BEAKER) (test twji=747) 0.6 ng/mL 0.0-6.6 CREATINE KINASE-MB INDEX (BEAKER) (test pqhx=296) 2.0 % CK-MB Reference Range:<6.7 Normal6.7-10.0 Borderline>10.0 AbnormalCREATINE KINASE (CK), TOTAL AND [id number] 21:13:00* Test Item Value Reference Range Comments CREATINE KINASE TOTAL (BEAKER) (test njha=834) 29 U/L 29-200 CREATINE KINASE-MB (BEAKER) (test fmqh=552) 0.6 ng/mL 0.0-6.6 CREATINE KINASE-MB INDEX (BEAKER) (test nkqp=112) 2.1 % CK-MB Reference Range:<6.7 Normal6.7-10.0 Borderline>10.0 AbnormalTROPONIN [id number] 21:13:00* Test Item Value Reference Range Comments TROPONIN I (BEAKER) (test gbkh=489) 0.03 ng/mL 0.00-0.03 Troponin I (TnI) levels must be interpreted [...] failure, acidosis, acute neurological disease, and persistent tachyarrhythmia.[facility], [id number] 15:19:00FINAL REPORT PROCEDURE: V/Q LUNG SCAN CPT CODE: 55442 INDICATION: Dyspnea PROTOCOL: 9.9 mCi of Xe- 133 gas was administered by inhalation. Single breath and rebreathing/washout images were obtained in the anterior and posterior projections. 4.3 mCi of Tc- 99m MAA was then injected intravenously, and static perfusion images were obtained in multiple projections. FINDINGS: Ventilation: Initial tracer distribution is irregular in both lungs with further decrease in the mid and lower lung lim bilaterally. Washout proceeds normally. Perfusion: Tracer distribution is nonsegmentally irregularly decreased in both lungs. There is prominence of the oblique fissures. IMPRESSION: 1. Very low probability of acute pulmonary embolization.2. Bilateral parenchymal and pleural abnormality, similar in overall pattern to the study of 10/07/2017. Signed: Saroj Valles MDReport Verified Date/Time: 12/21/2017 15:19:27 Reading Location: [address] [address] Reading Room TINE KINASE (CK), TOTAL AND [id number] 12:54:00* Test Item Value Reference Range Comments CREATINE KINASE TOTAL (BEAKER) (test wubm=325) 31 U/L 29-200 CREATINE KINASE-MB (BEAKER) (test yqbu=180) 0.8 ng/mL 0.0-6.6 CREATINE KINASE-MB INDEX (BEAKER) (test sbyj=452) 2.6 % CK-MB Reference Range:<6.7 Normal6.7-10.0 Borderline>10.0 AbnormalTROPONIN [id number] 12:54:00* Test Item Value Reference Range Comments TROPONIN I (BEAKER) (test jgrj=555) 0.03 ng/mL 0.00-0.03 Troponin I (TnI) levels must be interpreted [...] failure, acidosis, acute neurological disease, and persistent tachyarrhythmia.POCT-LACTIC ACID, [id number] 08:53 :00* Test Item Value Reference Range Comments POC-LACTIC ACID, VENOUS (BEAKER) (test vioy=4639) 0.5 mmol/L 0.9-1.7 TESTED AT [facility] [address] [facility] [address] BASIC METABOLIC [id number] 07:09:00* Test Item Value Reference Range Comments SODIUM (BEAKER) (test nuiw=157) 137 meq/L 136-145 POTASSIUM (BEAKER) (test ajoz=894) 4.6 meq/L 3.5-5.1 CHLORIDE (BEAKER) (test heza=819) 103 meq/L 98-107 CO2 (BEAKER) (test dlfd=479) 24 meq/L 22-29 BLOOD UREA NITROGEN (BEAKER) (test gnnd=674) 39 mg/dL 7-21 CREATININE (BEAKER) (test qvha=986) 1.79 mg/dL 0.57-1.25 GLUCOSE RANDOM (BEAKER) (test wwvq=595) 106 mg/dL 70-105 CALCIUM (BEAKER) (test uqre=316) 9.6 mg/dL 8.4-10.2 EGFR (BEAKER) (test gcth=8003) 33 mL/min/1.73 sq m ESTIMATED GFR IS NOT ACCURATE CREATININE CLEARANCE IN PREDICTING GLOMERULAR FILTRATION RATE. ESTIMATED GFR IS NOT APPLICABLE FOR DIALYSIS PATIENTS. CREATINE KINASE (CK), TOTAL AND [id number] 07:09:00* Test Item Value Reference Range Comments CREATINE KINASE TOTAL (BEAKER) (test idbb=180) 40 U/L 29-200 CREATINE KINASE-MB (BEAKER) (test srmh=964) 0.9 ng/mL 0.0-6.6 CREATINE KINASE-MB INDEX (BEAKER) (test gaif=918) 2.3 % CK-MB Reference Range:<6.7 Normal6.7-10.0 Borderline>10.0 AbnormalB- TYPE NATRIURETIC FACTOR (BNP)2017-12-21 07:00:00* Test Item Value Reference Range Comments B-TYPE NATRIURETIC PEPTIDE (BEAKER) (test lqwj=513) 1430 pg/mL 0-100 TROPONIN [id number] 06:59:00* Test Item Value Reference Range Comments TROPONIN I (BEAKER) (test zcih=656) 0.03 ng/mL 0.00-0.03 Troponin I (TnI) levels must be interpreted [...] failure, acidosis, acute neurological disease, and persistent tachyarrhythmia.[id number] 06:23:00* Test Item Value Reference Range Comments D-DIMER QUANTITATIVE (BEAKER) (test kxdt=492) 1.87 MG/L FEU <0.50 Intended Use: The D-Dimer Assay can be used to aid in the diagnosis of Deep Vein Thrombosis (DVT) and Pulmonary Embolism Disease (PED).In patients with low pre-test probability, various studies concerning STA Liatest D-dimer test have reported that with a cutoff value of 0.50 MG/L FEU, the Negative Predictive Value (NPV) regarding the exclusion of thrombosis is within 95-100% range.PT/ [id number] 06:21:00* Test Item Value Reference Range Comments PROTIME (BEAKER) (test ftdz=717) 14.1 seconds 11.7-14.7 INR (BEAKER) (test awhc=134) 1.1 <=5.9 PARTIAL THROMBOPLASTIN TIME (BEAKER) (test gbbj=009) 29.7 seconds 22.5-36.0 RECOMMENDED COUMADIN/WARFARIN INR THERAPY RANGESSTANDARD DOSE: 2.0 - 3.0 Includes: PROPHYLAXIS for venous thrombosis, systemic embolization; TREATMENT for venous thrombosis and/or pulmonary embolus.HIGH RISK: Target INR is 2.5-3.5 for patients with mechanical heart valves.RAD, CHEST, 1 VIEW, NON [id number] 06:08:00Reason for exam:->SHORTNESS OF BREATHShould this be performed at the bedside?->YesFINAL REPORT RAD, CHEST, 1 VIEW, NON DEPT INDICATION: SHORTNESS OF BREATH COMPARISON: Chest x-ray 3 months ago TECHNIQUE: Portable frontal view of the chest. IMPRESSION: Stable cardiomegaly.No pneumothorax.Stable pulmonary edema and large bilateral effusions with adjacent airspace disease.No acute osseous abnormality. Signed: Darwin Valdez MDReport Verified Date/Time: 12/21/2017 06:08:21 Reading Location: [facility] C0X Ortho Consult Reading Room Electronically signed by: DARWIN VALDEZ MD on 2017 06:08 AM CBC W/PLT COUNT & AUTO [id number] 06:07:00* Test Item Value Reference Range Comments WHITE BLOOD CELL COUNT (BEAKER) (test rxdx=388) 9.9 K/ L 3.5-10.5 RED BLOOD CELL COUNT (BEAKER) (test wbjz=971) 2.80 M/ L 3.93-5.22 HEMOGLOBIN (BEAKER) (test oqpk=080) 8.3 GM/DL 11.2-15.7 HEMATOCRIT (BEAKER) (test qquw=081) 26.5 % 34.1-44.9 MEAN CORPUSCULAR VOLUME (BEAKER) (test wvxd=863) 94.6 fL 79.4-94.8 MEAN CORPUSCULAR HEMOGLOBIN (BEAKER) (test hhgo=156) 29.6 pg 25.6-32.2 MEAN CORPUSCULAR HEMOGLOBIN CONC (BEAKER) (test pzih=144) 31.3 GM/DL 32.2- 35.5 RED CELL DISTRIBUTION WIDTH (BEAKER) (test zrmx=750) 14.8 % 11.7-14.4 PLATELET COUNT (BEAKER) (test jcmv=192) 340 K/CU MM 150-450 MEAN PLATELET VOLUME (BEAKER) (test pjwe=039) 10.9 fL 9.4-12.3 NUCLEATED RED BLOOD CELLS (BEAKER) (test snql=217) 0 /100 WBC 0-0 NEUTROPHILS RELATIVE PERCENT (BEAKER) (test gbkx=964) 86 % LYMPHOCYTES RELATIVE PERCENT (BEAKER) (test circ=505) 7 % MONOCYTES RELATIVE PERCENT (BEAKER) (test elur=850) 6 % EOSINOPHILS RELATIVE PERCENT (BEAKER) (test vqqe=677) 1 % BASOPHILS RELATIVE PERCENT (BEAKER) (test rhau=798) 0 % NEUTROPHILS ABSOLUTE COUNT (BEAKER) (test vath=910) 8.48 K/ L 1.56-6.13 LYMPHOCYTES ABSOLUTE COUNT (BEAKER) (test plsj=977) 0.66 K/ L 1.18-3.74 MONOCYTES ABSOLUTE COUNT (BEAKER) (test eoyu=598) 0.60 K/ L 0.24-0.36 EOSINOPHILS ABSOLUTE COUNT (BEAKER) (test fwwe=642) 0.09 K/ L 0.04-0.36 BASOPHILS ABSOLUTE COUNT (BEAKER) (test vpmy=604) 0.03 K/ L 0.01-0.08 IMMATURE GRANULOCYTES-RELATIVE PERCENT (BEAKER) (test yzyz=3834) 1 % 0-1 BASIC METABOLIC [id number] 08:08:00* Test Item Value Reference Range Comments SODIUM (BEAKER) (test wlkc=683) 139 meq/L 136-145 POTASSIUM (BEAKER) (test xxte=478) 3.6 meq/L 3.5-5.1 CHLORIDE (BEAKER) (test tmhy=328) 100 meq/L 98-107 CO2 (BEAKER) (test gwih=436) 30 meq/L 22-29 BLOOD UREA NITROGEN (BEAKER) (test bjfg=452) 43 mg/dL 7-21 CREATININE (BEAKER) (test lrmi=041) 2.26 mg/dL 0.57-1.25 GLUCOSE RANDOM (BEAKER) (test niif=972) 80 mg/dL 70-105 CALCIUM (BEAKER) (test brvv=459) 9.5 mg/dL 8.4-10.2 EGFR (BEAKER) (test veve=7442) 25 mL/min/1.73 sq m ESTIMATED GFR IS NOT ACCURATE CREATININE CLEARANCE IN PREDICTING GLOMERULAR FILTRATION RATE. ESTIMATED GFR IS NOT APPLICABLE FOR DIALYSIS PATIENTS. [id number] 08:02:00* Test Item Value Reference Range Comments MAGNESIUM (BEAKER) (test hkzz=173) 1.7 mg/dL 1.6-2.6 CBC W/PLT COUNT & AUTO [id number] 05:32:00* Test Item Value Reference Range Comments WHITE BLOOD CELL COUNT (BEAKER) (test ucnq=603) 5.3 K/ L 3.5-10.5 RED BLOOD CELL COUNT (BEAKER) (test cxix=501) 3.27 M/ L 3.93-5.22 HEMOGLOBIN (BEAKER) (test ivjh=472) 9.2 GM/DL 11.2-15.7 HEMATOCRIT (BEAKER) (test zbid=072) 29.5 % 34.1-44.9 MEAN CORPUSCULAR VOLUME (BEAKER) (test msup=123) 90.2 fL 79.4-94.8 MEAN CORPUSCULAR HEMOGLOBIN (BEAKER) (test qcqd=558) 28.1 pg 25.6-32.2 MEAN CORPUSCULAR HEMOGLOBIN CONC (BEAKER) (test pttt=340) 31.2 GM/DL 32.2- 35.5 RED CELL DISTRIBUTION WIDTH (BEAKER) (test cupb=495) 15.8 % 11.7-14.4 PLATELET COUNT (BEAKER) (test xdok=517) 277 K/CU MM 150-450 MEAN PLATELET VOLUME (BEAKER) (test wkyc=095) 9.9 fL 9.4-12.3 NUCLEATED RED BLOOD CELLS (BEAKER) (test njwm=277) 0 /100 WBC 0-0 NEUTROPHILS RELATIVE PERCENT (BEAKER) (test qzaz=875) 71 % LYMPHOCYTES RELATIVE PERCENT (BEAKER) (test kqlq=425) 11 % MONOCYTES RELATIVE PERCENT (BEAKER) (test hcgt=351) 11 % EOSINOPHILS RELATIVE PERCENT (BEAKER) (test tdnz=770) 3 % BASOPHILS RELATIVE PERCENT (BEAKER) (test rrlb=594) 1 % NEUTROPHILS ABSOLUTE COUNT (BEAKER) (test dszv=683) 3.80 K/ L 1.56-6.13 LYMPHOCYTES ABSOLUTE COUNT (BEAKER) (test xgro=380) 0.61 K/ L 1.18-3.74 MONOCYTES ABSOLUTE COUNT (BEAKER) (test yzrl=428) 0.57 K/ L 0.24-0.36 EOSINOPHILS ABSOLUTE COUNT (BEAKER) (test kodd=710) 0.18 K/ L 0.04-0.36 BASOPHILS ABSOLUTE COUNT (BEAKER) (test jfal=563) 0.03 K/ L 0.01-0.08 IMMATURE GRANULOCYTES-RELATIVE PERCENT (BEAKER) (test kogm=9707) 3 % 0-1 CREATINE KINASE (CK), TOTAL AND [id number] 04:56:00* Test Item Value Reference Range Comments CREATINE KINASE TOTAL (BEAKER) (test uoca=674) 17 U/L 29-200 CREATINE KINASE-MB (BEAKER) (test nxrw=146) 0.4 ng/mL 0.0-6.6 CREATINE KINASE-MB INDEX (BEAKER) (test izsj=969) 2.4 % CK-MB Reference Range:<6.7 Normal6.7-10.0 Borderline>10.0 AbnormalBASIC METABOLIC [id number] 04:54:00* Test Item Value Reference Range Comments SODIUM (BEAKER) (test tvmb=584) 139 meq/L 136-145 POTASSIUM (BEAKER) (test xkno=278) 3.7 meq/L 3.5-5.1 CHLORIDE (BEAKER) (test wygo=877) 102 meq/L 98-107 CO2 (BEAKER) (test lasl=174) 24 meq/L 22-29 BLOOD UREA NITROGEN (BEAKER) (test evim=625) 45 mg/dL 7-21 CREATININE (BEAKER) (test cdzt=453) 2.41 mg/dL 0.57-1.25 GLUCOSE RANDOM (BEAKER) (test frta=630) 82 mg/dL 70-105 CALCIUM (BEAKER) (test lzxx=895) 9.4 mg/dL 8.4-10.2 EGFR (BEAKER) (test qvce=1266) 23 mL/min/1.73 sq m ESTIMATED GFR IS NOT ACCURATE CREATININE CLEARANCE IN PREDICTING GLOMERULAR FILTRATION RATE. ESTIMATED GFR IS NOT APPLICABLE FOR DIALYSIS PATIENTS. TROPONIN [id number] 04:53:00* Test Item Value Reference Range Comments TROPONIN I (BEAKER) (test cxes=422) 0.03 ng/mL 0.00-0.03 Troponin I (TnI) levels must be interpreted [...] failure, acidosis, acute neurological disease, and persistent tachyarrhythmia.[id number] 04:52:00* Test Item Value Reference Range Comments MAGNESIUM (BEAKER) (test ygnr=684) 1.6 mg/dL 1.6-2.6 B-TYPE NATRIURETIC FACTOR (BNP)2017-10-10 04:47:00* Test Item Value Reference Range Comments B-TYPE NATRIURETIC PEPTIDE (BEAKER) (test qbkj=884) 818 pg/mL 0-100 CBC W/PLT COUNT & AUTO [id number] 04:24:00* Test Item Value Reference Range Comments WHITE BLOOD CELL COUNT (BEAKER) (test dzjl=934) 6.4 K/ L 3.5-10.5 RED BLOOD CELL COUNT (BEAKER) (test ngxa=243) 3.20 M/ L 3.93-5.22 HEMOGLOBIN (BEAKER) (test vpet=535) 9.1 GM/DL 11.2-15.7 HEMATOCRIT (BEAKER) (test zxqy=637) 28.7 % 34.1-44.9 MEAN CORPUSCULAR VOLUME (BEAKER) (test viab=488) 89.7 fL 79.4-94.8 MEAN CORPUSCULAR HEMOGLOBIN (BEAKER) (test zdxn=694) 28.4 pg 25.6-32.2 MEAN CORPUSCULAR HEMOGLOBIN CONC (BEAKER) (test qmhs=974) 31.7 GM/DL 32.2- 35.5 RED CELL DISTRIBUTION WIDTH (BEAKER) (test tssm=328) 15.6 % 11.7-14.4 PLATELET COUNT (BEAKER) (test idbj=061) 249 K/CU MM 150-450 MEAN PLATELET VOLUME (BEAKER) (test zlqr=360) 9.6 fL 9.4-12.3 NUCLEATED RED BLOOD CELLS (BEAKER) (test tahy=574) 0 /100 WBC 0-0 NEUTROPHILS RELATIVE PERCENT (BEAKER) (test ovgt=835) 74 % LYMPHOCYTES RELATIVE PERCENT (BEAKER) (test auvy=709) 11 % MONOCYTES RELATIVE PERCENT (BEAKER) (test ulrg=018) 9 % EOSINOPHILS RELATIVE PERCENT (BEAKER) (test mlyy=903) 3 % BASOPHILS RELATIVE PERCENT (BEAKER) (test tbns=782) 0 % NEUTROPHILS ABSOLUTE COUNT (BEAKER) (test uulm=580) 4.72 K/ L 1.56-6.13 LYMPHOCYTES ABSOLUTE COUNT (BEAKER) (test aamw=220) 0.71 K/ L 1.18-3.74 MONOCYTES ABSOLUTE COUNT (BEAKER) (test ndbi=815) 0.58 K/ L 0.24-0.36 EOSINOPHILS ABSOLUTE COUNT (BEAKER) (test timh=964) 0.18 K/ L 0.04-0.36 BASOPHILS ABSOLUTE COUNT (BEAKER) (test rnwo=314) 0.02 K/ L 0.01-0.08 IMMATURE GRANULOCYTES-RELATIVE PERCENT (BEAKER) (test poqt=6064) 3 % 0-1 HEMOGLOBIN AND [id number] 19:51:00* Test Item Value Reference Range Comments HEMOGLOBIN (BEAKER) (test chmo=096) 8.9 GM/DL 11.2-15.7 HEMATOCRIT (BEAKER) (test ohjb=697) 28.3 % 34.1-44.9 BASIC METABOLIC [id number] 16:40:00* Test Item Value Reference Range Comments SODIUM (BEAKER) (test gezm=026) 137 meq/L 136-145 POTASSIUM (BEAKER) (test awgd=942) 3.9 meq/L 3.5-5.1 CHLORIDE (BEAKER) (test rkox=321) 99 meq/L 98-107 CO2 (BEAKER) (test gzmg=544) 29 meq/L 22-29 BLOOD UREA NITROGEN (BEAKER) (test jnoq=436) 47 mg/dL 7-21 CREATININE (BEAKER) (test unka=773) 2.59 mg/dL 0.57-1.25 GLUCOSE RANDOM (BEAKER) (test xdpo=120) 114 mg/dL 70-105 CALCIUM (BEAKER) (test zygh=407) 9.3 mg/dL 8.4-10.2 EGFR (BEAKER) (test xgei=4943) 22 mL/min/1.73 sq m ESTIMATED GFR IS NOT ACCURATE CREATININE CLEARANCE IN PREDICTING GLOMERULAR FILTRATION RATE. ESTIMATED GFR IS NOT APPLICABLE FOR DIALYSIS PATIENTS. [id number] 16:37:00* Test Item Value Reference Range Comments MAGNESIUM (BEAKER) (test zlom=779) 1.7 mg/dL 1.6-2.6 CBC W/PLT COUNT & AUTO [id number] 06:10:00* Test Item Value Reference Range Comments WHITE BLOOD CELL COUNT (BEAKER) (test ejux=726) 7.6 K/ L 3.5-10.5 RED BLOOD CELL COUNT (BEAKER) (test txul=566) 3.17 M/ L 3.93-5.22 HEMOGLOBIN (BEAKER) (test mxhb=965) 8.9 GM/DL 11.2-15.7 HEMATOCRIT (BEAKER) (test ecoa=975) 27.9 % 34.1-44.9 MEAN CORPUSCULAR VOLUME (BEAKER) (test bjgz=489) 88.0 fL 79.4-94.8 MEAN CORPUSCULAR HEMOGLOBIN (BEAKER) (test hgqp=242) 28.1 pg 25.6-32.2 MEAN CORPUSCULAR HEMOGLOBIN CONC (BEAKER) (test luxb=313) 31.9 GM/DL 32.2- 35.5 RED CELL DISTRIBUTION WIDTH (BEAKER) (test ubng=642) 15.8 % 11.7-14.4 PLATELET COUNT (BEAKER) (test enfw=365) 252 K/CU MM 150-450 MEAN PLATELET VOLUME (BEAKER) (test vxgb=403) 10.2 fL 9.4-12.3 NUCLEATED RED BLOOD CELLS (BEAKER) (test dgpl=577) 0 /100 WBC 0-0 NEUTROPHILS RELATIVE PERCENT (BEAKER) (test chzp=274) 79 % LYMPHOCYTES RELATIVE PERCENT (BEAKER) (test dqfh=809) 8 % MONOCYTES RELATIVE PERCENT (BEAKER) (test nisp=499) 8 % EOSINOPHILS RELATIVE PERCENT (BEAKER) (test szqq=879) 3 % BASOPHILS RELATIVE PERCENT (BEAKER) (test qnah=492) 0 % NEUTROPHILS ABSOLUTE COUNT (BEAKER) (test gzwa=916) 5.96 K/ L 1.56-6.13 LYMPHOCYTES ABSOLUTE COUNT (BEAKER) (test taxf=118) 0.61 K/ L 1.18-3.74 MONOCYTES ABSOLUTE COUNT (BEAKER) (test djbk=668) 0.64 K/ L 0.24-0.36 EOSINOPHILS ABSOLUTE COUNT (BEAKER) (test swhc=429) 0.24 K/ L 0.04-0.36 BASOPHILS ABSOLUTE COUNT (BEAKER) (test mmsq=292) 0.02 K/ L 0.01-0.08 IMMATURE GRANULOCYTES-RELATIVE PERCENT (BEAKER) (test lkxz=8873) 2 % 0-1 BASIC METABOLIC [id number] 06:00:00* Test Item Value Reference Range Comments SODIUM (BEAKER) (test ujml=712) 136 meq/L 136-145 POTASSIUM (BEAKER) (test wmdt=661) 3.7 meq/L 3.5-5.1 CHLORIDE (BEAKER) (test idub=444) 97 meq/L 98-107 CO2 (BEAKER) (test aqau=353) 28 meq/L 22-29 BLOOD UREA NITROGEN (BEAKER) (test leuv=528) 47 mg/dL 7-21 CREATININE (BEAKER) (test fhrx=608) 2.65 mg/dL 0.57-1.25 GLUCOSE RANDOM (BEAKER) (test cbmb=362) 88 mg/dL 70-105 CALCIUM (BEAKER) (test zckn=294) 9.2 mg/dL 8.4-10.2 EGFR (BEAKER) (test qwvy=6295) 21 mL/min/1.73 sq m ESTIMATED GFR IS NOT ACCURATE CREATININE CLEARANCE IN PREDICTING GLOMERULAR FILTRATION RATE. ESTIMATED GFR IS NOT APPLICABLE FOR DIALYSIS PATIENTS. [id number] 05:51:00* Test Item Value Reference Range Comments MAGNESIUM (BEAKER) (test kbmp=228) 1.8 mg/dL 1.6-2.6 RAD, CHEST, 1 VIEW, NON [id number] 04:13:00Reason for exam:->CHF and pleural effusions.Should this be performed at the bedside?->YesFINAL REPORT CLINICAL INDICATION: CHF and pleural effusions Comparison: 10/08/2017 The cardiomediastinal contours are stable. Central pulmonary vascular congestion and bilateral parenchymal and pleural opacities are unchanged. There is no pneumothorax. Signed: Jacoby Mays MDReport Verified Date/Time: 10/09/2017 04:13:37 Reading Location: [address] Reading Room Electronically signed by: JACOBY MAYS M.D. on 04:13 AM [id number] 17:40:00* Test Item Value Reference Range Comments MAGNESIUM (BEAKER) (test eugz=199) 2.0 mg/dL 1.6-2.6 BASIC METABOLIC [id number] 17:08:00* Test Item Value Reference Range Comments SODIUM (BEAKER) (test fnjt=204) 137 meq/L 136-145 POTASSIUM (BEAKER) (test wcld=351) 3.9 meq/L 3.5-5.1 CHLORIDE (BEAKER) (test czfj=076) 98 meq/L 98-107 CO2 (BEAKER) (test xvqj=032) 28 meq/L 22-29 BLOOD UREA NITROGEN (BEAKER) (test gmoy=339) 48 mg/dL 7-21 CREATININE (BEAKER) (test fyjk=426) 2.66 mg/dL 0.57-1.25 GLUCOSE RANDOM (BEAKER) (test ozvk=640) 125 mg/dL 70-105 CALCIUM (BEAKER) (test ajvp=094) 9.3 mg/dL 8.4-10.2 EGFR (BEAKER) (test otcx=0285) 21 mL/min/1.73 sq m ESTIMATED GFR IS NOT ACCURATE CREATININE CLEARANCE IN PREDICTING GLOMERULAR FILTRATION RATE. ESTIMATED GFR IS NOT APPLICABLE FOR DIALYSIS PATIENTS. HEMOGLOBIN AND [id number] 16:48:00* Test Item Value Reference Range Comments HEMOGLOBIN (BEAKER) (test gght=739) 9.7 GM/DL 11.2-15.7 HEMATOCRIT (BEAKER) (test zexk=855) 30.1 % 34.1-44.9 BODY FLUID CULTURE + GRAM [id number] 11:23:00* Test Item Value Reference Range Comments CULTURE (BEAKER) (test dybl=4728) No growth GRAM STAIN RESULT (BEAKER) (test baqx=4829) <1+ WBCs GRAM STAIN RESULT (BEAKER) (test fmyj=33678) No organisms seen [id number] 11:16:00* Test Item Value Reference Range Comments MAGNESIUM (BEAKER) (test ewaf=414) 1.4 mg/dL 1.6-2.6 RAD, CHEST, 1 VIEW, NON [id number] 07:36:00Reason for exam:->CHF and pleural effusions.Should this be performed at the bedside?->YesFINAL REPORT Chest dated 10/08/2017 Clinical Information: CHF and pleural effusions. Comment: Heart is enlarged. Pulmonary vasculature is indistinct. Interstitial disease is seen bilaterally suggestive pulmonary edema. There is small bilateral pleural effusion worse on the right. Impression : Congestive failure. Signed: Margaret Sanders MDReport Verified Date/Time: 2016 07:36:03 Reading Location: [address] Body Reading Room C METABOLIC [id number] 03:37:00* Test Item Value Reference Range Comments SODIUM (BEAKER) (test jmjt=845) 138 meq/L 136-145 POTASSIUM (BEAKER) (test nxya=204) 3.6 meq/L 3.5-5.1 CHLORIDE (BEAKER) (test buwx=013) 100 meq/L 98-107 CO2 (BEAKER) (test gkuy=675) 29 meq/L 22-29 BLOOD UREA NITROGEN (BEAKER) (test wven=786) 48 mg/dL 7-21 CREATININE (BEAKER) (test bhuc=391) 2.64 mg/dL 0.57-1.25 GLUCOSE RANDOM (BEAKER) (test tinn=166) 77 mg/dL 70-105 CALCIUM (BEAKER) (test muvl=587) 8.9 mg/dL 8.4-10.2 EGFR (BEAKER) (test atsr=3528) 21 mL/min/1.73 sq m ESTIMATED GFR IS NOT ACCURATE CREATININE CLEARANCE IN PREDICTING GLOMERULAR FILTRATION RATE. ESTIMATED GFR IS NOT APPLICABLE FOR DIALYSIS PATIENTS. HEMOGLOBIN AND [id number] 02:26:00* Test Item Value Reference Range Comments HEMOGLOBIN (BEAKER) (test esow=306) 8.8 GM/DL 11.2-15.7 HEMATOCRIT (BEAKER) (test dvgk=597) 27.2 % 34.1-44.9 CBC W/PLT COUNT & AUTO [id number] 02:26:00* Test Item Value Reference Range Comments WHITE BLOOD CELL COUNT (BEAKER) (test pbzy=124) 8.0 K/ L 3.5-10.5 RED BLOOD CELL COUNT (BEAKER) (test xsvx=508) 3.04 M/ L 3.93-5.22 HEMOGLOBIN (BEAKER) (test ojxy=666) 8.8 GM/DL 11.2-15.7 HEMATOCRIT (BEAKER) (test ikgn=045) 27.2 % 34.1-44.9 MEAN CORPUSCULAR VOLUME (BEAKER) (test fyrv=984) 89.5 fL 79.4-94.8 MEAN CORPUSCULAR HEMOGLOBIN (BEAKER) (test ffuu=161) 28.9 pg 25.6-32.2 MEAN CORPUSCULAR HEMOGLOBIN CONC (BEAKER) (test lmkx=201) 32.4 GM/DL 32.2- 35.5 RED CELL DISTRIBUTION WIDTH (BEAKER) (test yujd=546) 15.8 % 11.7-14.4 PLATELET COUNT (BEAKER) (test vxcg=914) 213 K/CU MM 150-450 MEAN PLATELET VOLUME (BEAKER) (test opbf=941) 10.1 fL 9.4-12.3 NUCLEATED RED BLOOD CELLS (BEAKER) (test bmsx=678) 0 /100 WBC 0-0 NEUTROPHILS RELATIVE PERCENT (BEAKER) (test ylmr=218) 80 % LYMPHOCYTES RELATIVE PERCENT (BEAKER) (test nsrg=429) 10 % MONOCYTES RELATIVE PERCENT (BEAKER) (test bhsa=313) 7 % EOSINOPHILS RELATIVE PERCENT (BEAKER) (test rrkc=540) 3 % BASOPHILS RELATIVE PERCENT (BEAKER) (test epct=473) 0 % NEUTROPHILS ABSOLUTE COUNT (BEAKER) (test geyl=993) 6.39 K/ L 1.56-6.13 LYMPHOCYTES ABSOLUTE COUNT (BEAKER) (test urby=577) 0.76 K/ L 1.18-3.74 MONOCYTES ABSOLUTE COUNT (BEAKER) (test nwbb=980) 0.56 K/ L 0.24-0.36 EOSINOPHILS ABSOLUTE COUNT (BEAKER) (test ceou=336) 0.20 K/ L 0.04-0.36 BASOPHILS ABSOLUTE COUNT (BEAKER) (test iamx=518) 0.01 K/ L 0.01-0.08 IMMATURE GRANULOCYTES-RELATIVE PERCENT (BEAKER) (test jwfe=2770) 1 % 0-1 PET, CARDIAC PERFUSION MULTIPLE STUDIES, REST AND [id number] 15:43: 00Reason for exam:->abn troponinsFINAL REPORT PROCEDURE: Rest/Stress MYOCARDIAL PERFUSION PET with regadenoson\\XA9\\ CPT CODE: [id number] INDICATION: Abnormal troponins HISTORY: Cardiac risk factors: The age, sex, hypertension, lipid abnormality, peripheral vascular disease. Other cardiovascular history: CHF, dyspnea, ventricular arrhythmia. Recent cardiac symptoms: Dyspnea. Current cardiovascular-related medications: Plavix, Coreg, Lasix, nifedipine, Imdur, hydralazine, atorvastatin. PROTOCOL: Limited low- dose CT imaging was performed for attenuation correction. [...] motion and thickening. LVEF at rest is 60% . LVEF at stress is 54%. IMPRESSION: 1. Normal study. 2. Appropriate pharmacologic stress. 3. Normal myocardial perfusion. 4. Normal resting LV function. Normal stress function. 5. Normal extracardiac tracer distribution. 6. No previous [facility] study for comparison. NONINVASIVE RISK STRATIFICATION: The above findings are considered low risk (<1% annual mortality rate) based on the following criterion:- Normal or small myocardial perfusion defect at [facility] or [facility]. 2012;59(9):916-54.) Signed: Arsen Russell Verified Date/Time: 10/07/2017 15:43:06 Reading Location: [address] [place] Reading Room Electronically signed by: ARSEN RUSSELL M.D. on 2016 03:43 PM PUL PERF IMAGING, [facility], [id number] 13:00:00FINAL REPORT PROCEDURE: V/Q LUNG SCAN CPT CODE: [id number] INDICATION: Pulmonary hypertension PROTOCOL: 9.9 mCi of Xe-133 gas was administered by inhalation. Rebreathing/washout images were obtained in the anterior and the posterior projections. 4.1 mCi of Tc-99m MAA was then injected intravenously, and static perfusion images were obtained in multiple projections. FINDINGS: Ventilation: Initial tracer distribution is physiological. Washout proceeds normally. Perfusion: Tracer distribution is decrease along the major fissures. IMPRESSION: Abnormal exam suggestive of pleural effusion. This is a low probability exam for an acute pulmonary embolus. Signed: Arsen Russell Verified Date/Time: 10/07/2017 13:00: 55 Reading Location: [address] [place] Reading Room C METABOLIC [id number] 05:13:00* Test Item Value Reference Range Comments SODIUM (BEAKER) (test fqdy=824) 140 meq/L 136-145 POTASSIUM (BEAKER) (test dbgw=491) 3.3 meq/L 3.5-5.1 CHLORIDE (BEAKER) (test qquh=213) 100 meq/L 98-107 CO2 (BEAKER) (test puxf=216) 28 meq/L 22-29 BLOOD UREA NITROGEN (BEAKER) (test khdr=181) 48 mg/dL 7-21 CREATININE (BEAKER) (test cpac=084) 2.82 mg/dL 0.57-1.25 GLUCOSE RANDOM (BEAKER) (test skjt=360) 85 mg/dL 70-105 CALCIUM (BEAKER) (test jkld=521) 8.8 mg/dL 8.4-10.2 EGFR (BEAKER) (test lphf=6466) 19 mL/min/1.73 sq m ESTIMATED GFR IS NOT ACCURATE CREATININE CLEARANCE IN PREDICTING GLOMERULAR FILTRATION RATE. ESTIMATED GFR IS NOT APPLICABLE FOR DIALYSIS PATIENTS. [id number] 04:37:00* Test Item Value Reference Range Comments PHOSPHORUS (BEAKER) (test jjmg=911) 3.6 mg/dL 2.3-4.7 [id number] 04:37:00* Test Item Value Reference Range Comments MAGNESIUM (BEAKER) (test ycwv=953) 1.7 mg/dL 1.6-2.6 B-TYPE NATRIURETIC FACTOR (BNP)2017-10-07 04:31:00* Test Item Value Reference Range Comments B-TYPE NATRIURETIC PEPTIDE (BEAKER) (test ycvm=935) 2014 pg/mL 0-100 CBC W/PLT COUNT & AUTO [id number] 04:18:00* Test Item Value Reference Range Comments WHITE BLOOD CELL COUNT (BEAKER) (test zhcp=505) 7.3 K/ L 3.5-10.5 RED BLOOD CELL COUNT (BEAKER) (test rqkn=895) 2.42 M/ L 3.93-5.22 HEMOGLOBIN (BEAKER) (test kcal=860) 6.8 GM/DL 11.2-15.7 HEMATOCRIT (BEAKER) (test krrw=997) 21.9 % 34.1-44.9 MEAN CORPUSCULAR VOLUME (BEAKER) (test qcya=753) 90.5 fL 79.4-94.8 MEAN CORPUSCULAR HEMOGLOBIN (BEAKER) (test jcyw=931) 28.1 pg 25.6-32.2 MEAN CORPUSCULAR HEMOGLOBIN CONC (BEAKER) (test byex=965) 31.1 GM/DL 32.2- 35.5 RED CELL DISTRIBUTION WIDTH (BEAKER) (test hyoz=238) 15.7 % 11.7-14.4 PLATELET COUNT (BEAKER) (test jtpa=074) 212 K/CU MM 150-450 MEAN PLATELET VOLUME (BEAKER) (test mzjd=597) 10.0 fL 9.4-12.3 NUCLEATED RED BLOOD CELLS (BEAKER) (test tgmb=571) 0 /100 WBC 0-0 NEUTROPHILS RELATIVE PERCENT (BEAKER) (test lchq=628) 82 % LYMPHOCYTES RELATIVE PERCENT (BEAKER) (test ixtz=215) 7 % MONOCYTES RELATIVE PERCENT (BEAKER) (test ikdq=108) 8 % EOSINOPHILS RELATIVE PERCENT (BEAKER) (test gkuy=502) 2 % BASOPHILS RELATIVE PERCENT (BEAKER) (test veut=441) 0 % NEUTROPHILS ABSOLUTE COUNT (BEAKER) (test mtqz=325) 5.92 K/ L 1.56-6.13 LYMPHOCYTES ABSOLUTE COUNT (BEAKER) (test ggpw=141) 0.51 K/ L 1.18-3.74 MONOCYTES ABSOLUTE COUNT (BEAKER) (test mdni=332) 0.58 K/ L 0.24-0.36 EOSINOPHILS ABSOLUTE COUNT (BEAKER) (test dinp=803) 0.16 K/ L 0.04-0.36 BASOPHILS ABSOLUTE COUNT (BEAKER) (test sppr=488) 0.01 K/ L 0.01-0.08 IMMATURE GRANULOCYTES-RELATIVE PERCENT (BEAKER) (test btmd=6980) 1 % 0-1 RAD, CHEST, 1 VIEW, NON [id number] 03:55:00Reason for exam:->CHF and pleural effusions.Should this be performed at the bedside?->YesFINAL REPORT CLINICAL INDICATION: CHF and pleural effusions Comparison: 10/05/2017 There is stable enlargement of the cardiac silhouette. Atherosclerotic calcifications present in the aorta. There is been interval worsening in diffuse bilateral pulmonary opacities, most likely reflecting pulmonary edema but multifocal pneumonitis should be excluded clinically. Small bilateral pleural effusions appear grossly stable within variation of acquisition technique. There is no pneumothorax. Signed: Jacoby Mays MDReport Verified Date/Time: 10/07/2017 03:55:43 Reading Location: [address] Reading Room Electronically signed by: JACOBY MAYS M.D. on 03:55 AM BASIC METABOLIC [id number] 17:07:00* Test Item Value Reference Range Comments SODIUM (BEAKER) (test vkwx=842) 138 meq/L 136-145 POTASSIUM (BEAKER) (test pwbn=418) 3.6 meq/L 3.5-5.1 CHLORIDE (BEAKER) (test pmnb=246) 100 meq/L 98-107 CO2 (BEAKER) (test lphn=656) 29 meq/L 22-29 BLOOD UREA NITROGEN (BEAKER) (test sgpq=057) 48 mg/dL 7-21 CREATININE (BEAKER) (test nknx=228) 2.83 mg/dL 0.57-1.25 GLUCOSE RANDOM (BEAKER) (test iwxx=310) 78 mg/dL 70-105 CALCIUM (BEAKER) (test zvfh=334) 8.9 mg/dL 8.4-10.2 EGFR (BEAKER) (test bosi=4095) 19 mL/min/1.73 sq m ESTIMATED GFR IS NOT ACCURATE CREATININE CLEARANCE IN PREDICTING GLOMERULAR FILTRATION RATE. ESTIMATED GFR IS NOT APPLICABLE FOR DIALYSIS PATIENTS. HEMOGLOBIN AND [id number] 16:43:00* Test Item Value Reference Range Comments HEMOGLOBIN (BEAKER) (test bvij=874) 7.1 GM/DL 11.2-15.7 HEMATOCRIT (BEAKER) (test zcpg=348) 22.7 % 34.1-44.9 BLOOD [id number] 10:00:00* Test Item Value Reference Range Comments CULTURE (BEAKER) (test vrjh=8053) No growth in 5 days BLOOD [id number] 10:00:00* Test Item Value Reference Range Comments CULTURE (BEAKER) (test tojg=3581) No growth in 5 days TROPONIN [id number] 09:04:00* Test Item Value Reference Range Comments TROPONIN I (BEAKER) (test bhef=441) 0.06 ng/mL 0.00-0.03 Troponin I (TnI) levels must be interpreted [...] failure, acidosis, acute neurological disease, and persistent tachyarrhythmia.U/S, [id number] 08:27: 00Laterality?->RightReason for exam:->R sided pleural effusion with hypoxia.FINAL REPORT Indication: Right pleural effusion. Technique: Ultrasound guided Right thoracentesis. Findings: Preliminary ultrasound confirms a right pleural effusion. A safe window was identified. The procedure was explained to the patient and informed consent was signed. Timeout was performed. The skin was marked and prepped in standard sterile fashion. 1% lidocaine was used for local anesthesia. A 5 Portuguese needle catheter system was advanced into the pleural space. 1,200 cc straw-colored fluid was taken off. Sample of the fluid was left bedside to be sent to the laboratory at the primary team's discretion. Impression: Ultrasound guided Right thoracentesis. Signed: Tushar Walton MDReport Verified Date/Time: 10/06/2017 08:27:47 Reading Location: [address] Transitional Reading Room C METABOLIC [id number] 06:27:00* Test Item Value Reference Range Comments SODIUM (BEAKER) (test nogt=427) 139 meq/L 136-145 POTASSIUM (BEAKER) (test ecee=870) 3.5 meq/L 3.5-5.1 CHLORIDE (BEAKER) (test wpbk=528) 100 meq/L 98-107 CO2 (BEAKER) (test ivhi=369) 28 meq/L 22-29 BLOOD UREA NITROGEN (BEAKER) (test nbku=289) 49 mg/dL 7-21 CREATININE (BEAKER) (test esnl=612) 2.92 mg/dL 0.57-1.25 GLUCOSE RANDOM (BEAKER) (test rxce=504) 82 mg/dL 70-105 CALCIUM (BEAKER) (test vxot=150) 9.4 mg/dL 8.4-10.2 EGFR (BEAKER) (test pckk=0068) 19 mL/min/1.73 sq m ESTIMATED GFR IS NOT ACCURATE CREATININE CLEARANCE IN PREDICTING GLOMERULAR FILTRATION RATE. ESTIMATED GFR IS NOT APPLICABLE FOR DIALYSIS PATIENTS. [id number] 06:23:00* Test Item Value Reference Range Comments MAGNESIUM (BEAKER) (test eyyu=249) 1.8 mg/dL 1.6-2.6 CBC W/PLT COUNT & AUTO [id number] 06:16:00* Test Item Value Reference Range Comments WHITE BLOOD CELL COUNT (BEAKER) (test wqdm=799) 9.6 K/ L 3.5-10.5 RED BLOOD CELL COUNT (BEAKER) (test gvan=251) 2.75 M/ L 3.93-5.22 HEMOGLOBIN (BEAKER) (test akay=454) 7.8 GM/DL 11.2-15.7 HEMATOCRIT (BEAKER) (test pvll=009) 24.8 % 34.1-44.9 MEAN CORPUSCULAR VOLUME (BEAKER) (test xwls=917) 90.2 fL 79.4-94.8 MEAN CORPUSCULAR HEMOGLOBIN (BEAKER) (test aaxx=390) 28.4 pg 25.6-32.2 MEAN CORPUSCULAR HEMOGLOBIN CONC (BEAKER) (test kdng=687) 31.5 GM/DL 32.2- 35.5 RED CELL DISTRIBUTION WIDTH (BEAKER) (test omar=356) 15.8 % 11.7-14.4 PLATELET COUNT (BEAKER) (test yxdd=558) 228 K/CU MM 150-450 MEAN PLATELET VOLUME (BEAKER) (test azye=022) 10.4 fL 9.4-12.3 NUCLEATED RED BLOOD CELLS (BEAKER) (test loqo=790) 0 /100 WBC 0-0 NEUTROPHILS RELATIVE PERCENT (BEAKER) (test pika=567) 86 % LYMPHOCYTES RELATIVE PERCENT (BEAKER) (test aylc=445) 4 % MONOCYTES RELATIVE PERCENT (BEAKER) (test zimj=088) 7 % EOSINOPHILS RELATIVE PERCENT (BEAKER) (test kgdc=861) 1 % BASOPHILS RELATIVE PERCENT (BEAKER) (test nwfh=928) 0 % NEUTROPHILS ABSOLUTE COUNT (BEAKER) (test nvdm=374) 8.22 K/ L 1.56-6.13 LYMPHOCYTES ABSOLUTE COUNT (BEAKER) (test jlzm=822) 0.42 K/ L 1.18-3.74 MONOCYTES ABSOLUTE COUNT (BEAKER) (test fxlp=391) 0.70 K/ L 0.24-0.36 EOSINOPHILS ABSOLUTE COUNT (BEAKER) (test ocsq=059) 0.12 K/ L 0.04-0.36 BASOPHILS ABSOLUTE COUNT (BEAKER) (test myxp=181) 0.02 K/ L 0.01-0.08 IMMATURE GRANULOCYTES-RELATIVE PERCENT (BEAKER) (test djnp=7471) 1 % 0-1 CREATINE KINASE (CK), TOTAL AND [id number] 01:33:00* Test Item Value Reference Range Comments CREATINE KINASE TOTAL (BEAKER) (test dtav=423) 17 U/L 29-200 CREATINE KINASE-MB (BEAKER) (test wvux=820) 0.3 ng/mL 0.0-6.6 CREATINE KINASE-MB INDEX (BEAKER) (test jlyr=479) 1.8 % CK-MB Reference Range:<6.7 Normal6.7-10.0 Borderline>10.0 AbnormalTROPONIN [id number] 01:11:00* Test Item Value Reference Range Comments TROPONIN I (BEAKER) (test sejf=858) 0.07 ng/mL 0.00-0.03 Troponin I (TnI) levels must be interpreted [...] failure, acidosis, acute neurological disease, and persistent tachyarrhythmia.TROPONIN [id number] 01:10:00* Test Item Value Reference Range Comments TROPONIN I (BEAKER) (test nmfe=578) 0.06 ng/mL 0.00-0.03 Troponin I (TnI) levels must be interpreted [...] failure, acidosis, acute neurological disease, and persistent tachyarrhythmia.BODY FLUID CELL COUNT WITH [id number] 20:41:00* Test Item Value Reference Range Comments APPEARANCE FLUID (BEAKER) (test gvnr=867) Clear Clear COLOR FLUID (BEAKER) (test rzht=055) Yellow Colorless, Straw RBC FLUID (BEAKER) (test apok=497) 80 /cu mm <=1 ADJUSTED WBC FLUID (BEAKER) (test lzdd=2070) 16 /cu mm <=5 LINING CELLS (BEAKER) (test ugww=5178) 0 /cu mm <=1 NEUTROPHILS FLUID (BEAKER) (test wpej=3179) 34 % LYMPHS FLUID (BEAKER) (test fzul=026) 30 % MONO/MACROPHAGE FLUID (BEAKER) (test thhp=874) 36 % EOSINOPHILS FLUID (BEAKER) (test olfl=396) 0 % BASO FLUID (BEAKER) (test kieh=751) 0 % CONTAINER BODY FLUID (BEAKER) (test oagy=6111) EDTA Tube RAD, CHEST, 1 VIEW, NON [id number] 20:20:00Reason for exam:->s/p right thoracenthesis Should this be performed at the bedside?->YesFINAL REPORT Portable chest. CLINICAL HISTORY: Status post right thoracentesis. COMPARISON STUDY: October 05, 2017. FINDINGS: The cardiac silhouette is enlarged. There is a small left-sided pleural effusion with adjacent atelectasis or consolidation. The right-sided effusion has been evacuated. Pulmonary venous congestion and airspace opacities are seen. No pneumothorax is noted. Degenerative changes are seen. IMPRESSION: No post procedure pneumothorax. Signed: Juan Harp MDReport Verified Date/Time: 20:20:19 Reading Location: [address] Consult Reading Room ATE DEHYDROGENASE (LDH), BODY [id number] 19:27:00* Test Item Value Reference Range Comments LACTATE DEHYDROGENASE FLUID (BEAKER) (test qjhv=681) < U/L Light's criteria identifies effusions if one or more are pre Absence of reference range indicates that normals have not been defined.Assay performance has not been validated for this type of specimen.PROTEIN, BODY [id number] 19:27:00* Test Item Value Reference Range Comments PROTEIN FLUID (BEAKER) (test tkgw=544) 1.2 g/dL Light's criteria identifies effusions if one or more are pre Absence of reference range indicates that normals have not been defined.Assay performance has not been validated for this type of specimen.GLUCOSE, BODY [id number] 19:27:00* Test Item Value Reference Range Comments GLUCOSE, BODY FLUID (BEAKER) (test roqx=9139) 102 mg/dL 70-110 Absence of reference range indicates that normals have not been defined.Assay performance has not been validated for this type of specimen.CREATINE KINASE (CK ), TOTAL AND [id number] 18:16:00* Test Item Value Reference Range Comments CREATINE KINASE TOTAL (BEAKER) (test kcaz=844) 20 U/L 29-200 CREATINE KINASE-MB (BEAKER) (test qohm=769) 0.5 ng/mL 0.0-6.6 CREATINE KINASE-MB INDEX (BEAKER) (test szwb=601) 2.5 % CK-MB Reference Range:<6.7 Normal6.7-10.0 Borderline>10.0 AbnormalTROPONIN [id number] 18:13:00* Test Item Value Reference Range Comments TROPONIN I (BEAKER) (test uuey=792) 0.07 ng/mL 0.00-0.03 Troponin I (TnI) levels must be interpreted [...] failure, acidosis, acute neurological disease, and persistent tachyarrhythmia.BASIC METABOLIC [id number] 14:55:00 * Test Item Value Reference Range Comments SODIUM (BEAKER) (test cfeb=861) 136 meq/L 136-145 POTASSIUM (BEAKER) (test ifkz=859) 3.3 meq/L 3.5-5.1 CHLORIDE (BEAKER) (test hsid=345) 100 meq/L 98-107 CO2 (BEAKER) (test edkh=369) 28 meq/L 22-29 BLOOD UREA NITROGEN (BEAKER) (test qbum=052) 49 mg/dL 7-21 CREATININE (BEAKER) (test smnf=139) 3.03 mg/dL 0.57-1.25 GLUCOSE RANDOM (BEAKER) (test eaza=293) 115 mg/dL 70-105 CALCIUM (BEAKER) (test zexj=785) 8.8 mg/dL 8.4-10.2 EGFR (BEAKER) (test qfux=5815) 18 mL/min/1.73 sq m ESTIMATED GFR IS NOT ACCURATE CREATININE CLEARANCE IN PREDICTING GLOMERULAR FILTRATION RATE. ESTIMATED GFR IS NOT APPLICABLE FOR DIALYSIS PATIENTS. PROTHROMBIN TIME/[id number] 14:22:00* Test Item Value Reference Range Comments PROTIME (BEAKER) (test sxsi=951) 14.3 seconds 11.7-14.7 INR (BEAKER) (test kxwp=550) 1.1 <=5.9 RECOMMENDED COUMADIN/WARFARIN INR THERAPY RANGESSTANDARD DOSE: 2.0 - 3.0 Includes: PROPHYLAXIS for venous thrombosis, systemic embolization; TREATMENT for venous thrombosis and/or pulmonary embolus.HIGH RISK: Target INR is 2.5-3.5 for patients with mechanical heart valves.PT/[id number] 14:22:00* Test Item Value Reference Range Comments PROTIME (BEAKER) (test zzpu=434) 14.3 seconds 11.7-14.7 INR (BEAKER) (test fcui=629) 1.1 <=5.9 PARTIAL THROMBOPLASTIN TIME (BEAKER) (test hiwb=361) 41.2 seconds 22.5-36.0 RECOMMENDED COUMADIN/WARFARIN INR THERAPY RANGESSTANDARD DOSE: 2.0 - 3.0 Includes: PROPHYLAXIS for venous thrombosis, systemic embolization; TREATMENT for venous thrombosis and/or pulmonary embolus.HIGH RISK: Target INR is 2.5-3.5 for patients with mechanical heart valves.HEMOGLOBIN AND [id number] 14 :19:00* Test Item Value Reference Range Comments HEMOGLOBIN (BEAKER) (test rrtd=635) 7.1 GM/DL 11.2-15.7 HEMATOCRIT (BEAKER) (test mcha=075) 22.3 % 34.1-44.9 B-TYPE NATRIURETIC FACTOR (BNP)2017-10-05 13:23:00* Test Item Value Reference Range Comments B-TYPE NATRIURETIC PEPTIDE (BEAKER) (test xupm=043) 2460 pg/mL 0-100 LACTATE DEHYDROGENASE (LDH)2017-10-05 13:23:00* Test Item Value Reference Range Comments LACTATE DEHYDROGENASE (BEAKER) (test yhfz=316) 219 U/L 125-220 [id number] 12:47:00* Test Item Value Reference Range Comments D-DIMER QUANTITATIVE (BEAKER) (test ovej=813) 1.05 MG/L FEU <0.50 Intended Use: The D-Dimer Assay can be used to aid in the diagnosis of Deep Vein Thrombosis (DVT) and Pulmonary Embolism Disease (PED).In patients with low pre-test probability, various studies concerning STA Liatest D-dimer test have reported that with a cutoff value of 0.50 MG/L FEU, the Negative Predictive Value (NPV) regarding the exclusion of thrombosis is within 95-100% range.RAD, CHEST, 1 VIEW, NON [id number] 09:44:00Reason for exam:->worsening hypoxiaShould this be performed at the bedside?->YesFINAL REPORT Chest one view AP 10/05/2017 9:44 AM CLINICAL INDICATION: worsening hypoxia COMPARISON: 10/03/2017 IMPRESSION: The cardiac silhouette is enlarged, but stable. There is moderately advanced pulmonary edema with moderate volume right and small volume left pleural effusions. Dependent pulmonary opacities may reflect atelectasis or pneumonia. Signed: Kishor Roman Verified Date/Time: 10/05/2017 09:44:31 Reading Location: [facility] Radiology Reading Room MIN D, [id number] 07:39:00* Test Item Value Reference Range Comments VITAMIN D 25-OH (BEAKER) (test tlct=0421) 13.0 ng/mL 6.6-49.9 Effective 08/24/2017: Reference Range ChangeNew: 6.6-49.9 ng/mL Previous: 13.0 -47.8 ng/mLRecommended Vitamin D Target Range: 30.0-40.0 ng/mLBASIC METABOLIC [id number] 06:52:00* Test Item Value Reference Range Comments SODIUM (BEAKER) (test lluq=847) 136 meq/L 136-145 POTASSIUM (BEAKER) (test fhlv=635) 3.3 meq/L 3.5-5.1 CHLORIDE (BEAKER) (test tern=792) 99 meq/L 98-107 CO2 (BEAKER) (test hcmv=622) 26 meq/L 22-29 BLOOD UREA NITROGEN (BEAKER) (test wnnl=661) 47 mg/dL 7-21 CREATININE (BEAKER) (test zjto=976) 2.98 mg/dL 0.57-1.25 GLUCOSE RANDOM (BEAKER) (test xkqs=982) 109 mg/dL 70-105 CALCIUM (BEAKER) (test sqjh=560) 8.8 mg/dL 8.4-10.2 EGFR (BEAKER) (test iykx=7161) 18 mL/min/1.73 sq m ESTIMATED GFR IS NOT ACCURATE CREATININE CLEARANCE IN PREDICTING GLOMERULAR FILTRATION RATE. ESTIMATED GFR IS NOT APPLICABLE FOR DIALYSIS PATIENTS. [id number] 06:50:00* Test Item Value Reference Range Comments MAGNESIUM (BEAKER) (test ndqu=160) 2.0 mg/dL 1.6-2.6 CBC W/PLT COUNT & AUTO [id number] 05:45:00* Test Item Value Reference Range Comments WHITE BLOOD CELL COUNT (BEAKER) (test qyzm=994) 6.9 K/ L 3.5-10.5 RED BLOOD CELL COUNT (BEAKER) (test bqwf=108) 2.56 M/ L 3.93-5.22 HEMOGLOBIN (BEAKER) (test sgke=328) 7.0 GM/DL 11.2-15.7 HEMATOCRIT (BEAKER) (test puyp=397) 23.0 % 34.1-44.9 MEAN CORPUSCULAR VOLUME (BEAKER) (test abgr=102) 89.8 fL 79.4-94.8 MEAN CORPUSCULAR HEMOGLOBIN (BEAKER) (test yqcq=809) 27.3 pg 25.6-32.2 MEAN CORPUSCULAR HEMOGLOBIN CONC (BEAKER) (test hikr=853) 30.4 GM/DL 32.2- 35.5 RED CELL DISTRIBUTION WIDTH (BEAKER) (test wjqw=447) 15.9 % 11.7-14.4 PLATELET COUNT (BEAKER) (test dhpv=283) 191 K/CU MM 150-450 MEAN PLATELET VOLUME (BEAKER) (test gvca=652) 10.0 fL 9.4-12.3 NUCLEATED RED BLOOD CELLS (BEAKER) (test xkve=870) 0 /100 WBC 0-0 NEUTROPHILS RELATIVE PERCENT (BEAKER) (test plgh=889) 81 % LYMPHOCYTES RELATIVE PERCENT (BEAKER) (test ozzp=713) 8 % MONOCYTES RELATIVE PERCENT (BEAKER) (test nlzy=598) 8 % EOSINOPHILS RELATIVE PERCENT (BEAKER) (test rnwz=285) 2 % BASOPHILS RELATIVE PERCENT (BEAKER) (test jeei=572) 0 % NEUTROPHILS ABSOLUTE COUNT (BEAKER) (test ogin=516) 5.57 K/ L 1.56-6.13 LYMPHOCYTES ABSOLUTE COUNT (BEAKER) (test krtf=751) 0.56 K/ L 1.18-3.74 MONOCYTES ABSOLUTE COUNT (BEAKER) (test tupj=333) 0.53 K/ L 0.24-0.36 EOSINOPHILS ABSOLUTE COUNT (BEAKER) (test ozub=994) 0.12 K/ L 0.04-0.36 BASOPHILS ABSOLUTE COUNT (BEAKER) (test qzej=691) 0.02 K/ L 0.01-0.08 IMMATURE GRANULOCYTES-RELATIVE PERCENT (BEAKER) (test kieq=2748) 1 % 0-1 BASIC METABOLIC [id number] 18:08:00* Test Item Value Reference Range Comments SODIUM (BEAKER) (test menl=827) 136 meq/L 136-145 POTASSIUM (BEAKER) (test mtpc=731) 3.5 meq/L 3.5-5.1 Specimen slightly hemolyzed CHLORIDE (BEAKER) (test smrw=106) 100 meq/L 98-107 CO2 (BEAKER) (test qtlr=412) 26 meq/L 22-29 BLOOD UREA NITROGEN (BEAKER) (test autl=736) 44 mg/dL 7-21 CREATININE (BEAKER) (test tkbh=503) 2.89 mg/dL 0.57-1.25 Specimen slightly hemolyzed GLUCOSE RANDOM (BEAKER) (test uvby=460) 103 mg/dL 70-105 CALCIUM (BEAKER) (test ubyt=355) 8.8 mg/dL 8.4-10.2 EGFR (BEAKER) (test kfds=4236) 19 mL/min/1.73 sq m ESTIMATED GFR IS NOT ACCURATE CREATININE CLEARANCE IN PREDICTING GLOMERULAR FILTRATION RATE. ESTIMATED GFR IS NOT APPLICABLE FOR DIALYSIS PATIENTS. HEMOGLOBIN AND [id number] 17:07:00* Test Item Value Reference Range Comments HEMOGLOBIN (BEAKER) (test gxcj=612) 7.3 GM/DL 11.2-15.7 HEMATOCRIT (BEAKER) (test ijzu=570) 23.8 % 34.1-44.9 PERIPHERAL BLOOD SMEAR - PATHOLOGIST [id number] 15:58:00* Test Item Value Reference Range Comments PERIPHERAL SMR REVIEW (BEAKER) (test ecau=4215) Cell counts confirmed. [id number] (BEAKER) (test lfdt=1574) Stephanie Christy M.D. ( electronic signature) BASIC METABOLIC [id number] 04:52:00* Test Item Value Reference Range Comments SODIUM (BEAKER) (test wtlt=026) 139 meq/L 136-145 POTASSIUM (BEAKER) (test cvfr=325) 3.6 meq/L 3.5-5.1 CHLORIDE (BEAKER) (test jrlr=594) 103 meq/L 98-107 CO2 (BEAKER) (test rjhc=178) 24 meq/L 22-29 BLOOD UREA NITROGEN (BEAKER) (test bfog=763) 43 mg/dL 7-21 CREATININE (BEAKER) (test rjgv=859) 2.78 mg/dL 0.57-1.25 GLUCOSE RANDOM (BEAKER) (test pgdi=422) 86 mg/dL 70-105 CALCIUM (BEAKER) (test uofn=041) 8.8 mg/dL 8.4-10.2 EGFR (BEAKER) (test xvvg=7363) 20 mL/min/1.73 sq m ESTIMATED GFR IS NOT ACCURATE CREATININE CLEARANCE IN PREDICTING GLOMERULAR FILTRATION RATE. ESTIMATED GFR IS NOT APPLICABLE FOR DIALYSIS PATIENTS. [id number] 04:35:00* Test Item Value Reference Range Comments MAGNESIUM (BEAKER) (test qter=065) 2.0 mg/dL 1.6-2.6 CBC W/PLT COUNT & AUTO [id number] 04:33:00* Test Item Value Reference Range Comments WHITE BLOOD CELL COUNT (BEAKER) (test zckt=501) 7.8 K/ L 3.5-10.5 RED BLOOD CELL COUNT (BEAKER) (test mnvf=448) 2.61 M/ L 3.93-5.22 HEMOGLOBIN (BEAKER) (test supv=178) 7.3 GM/DL 11.2-15.7 HEMATOCRIT (BEAKER) (test buut=549) 24.0 % 34.1-44.9 MEAN CORPUSCULAR VOLUME (BEAKER) (test uvzo=596) 92.0 fL 79.4-94.8 MEAN CORPUSCULAR HEMOGLOBIN (BEAKER) (test itcj=612) 28.0 pg 25.6-32.2 MEAN CORPUSCULAR HEMOGLOBIN CONC (BEAKER) (test firi=470) 30.4 GM/DL 32.2- 35.5 RED CELL DISTRIBUTION WIDTH (BEAKER) (test btmo=573) 16.2 % 11.7-14.4 PLATELET COUNT (BEAKER) (test rfzv=619) 200 K/CU MM 150-450 MEAN PLATELET VOLUME (BEAKER) (test kcly=266) 9.7 fL 9.4-12.3 NUCLEATED RED BLOOD CELLS (BEAKER) (test zlqc=012) 0 /100 WBC 0-0 NEUTROPHILS RELATIVE PERCENT (BEAKER) (test gzxw=285) 81 % LYMPHOCYTES RELATIVE PERCENT (BEAKER) (test pmmc=116) 8 % MONOCYTES RELATIVE PERCENT (BEAKER) (test orgb=407) 9 % EOSINOPHILS RELATIVE PERCENT (BEAKER) (test ysko=842) 1 % BASOPHILS RELATIVE PERCENT (BEAKER) (test idbv=924) 0 % NEUTROPHILS ABSOLUTE COUNT (BEAKER) (test evmn=441) 6.31 K/ L 1.56-6.13 LYMPHOCYTES ABSOLUTE COUNT (BEAKER) (test izge=094) 0.65 K/ L 1.18-3.74 MONOCYTES ABSOLUTE COUNT (BEAKER) (test xtpd=549) 0.67 K/ L 0.24-0.36 EOSINOPHILS ABSOLUTE COUNT (BEAKER) (test jhhs=403) 0.08 K/ L 0.04-0.36 BASOPHILS ABSOLUTE COUNT (BEAKER) (test vtlc=524) 0.01 K/ L 0.01-0.08 IMMATURE GRANULOCYTES-RELATIVE PERCENT (BEAKER) (test snqv=0274) 1 % 0-1 BASIC METABOLIC [id number] 17:06:00* Test Item Value Reference Range Comments SODIUM (BEAKER) (test jlqv=602) 141 meq/L 136-145 POTASSIUM (BEAKER) (test mveh=187) 3.6 meq/L 3.5-5.1 CHLORIDE (BEAKER) (test locm=614) 104 meq/L 98-107 CO2 (BEAKER) (test ohzc=448) 26 meq/L 22-29 BLOOD UREA NITROGEN (BEAKER) (test jzlc=686) 41 mg/dL 7-21 CREATININE (BEAKER) (test pydr=336) 2.68 mg/dL 0.57-1.25 GLUCOSE RANDOM (BEAKER) (test bkpj=884) 122 mg/dL 70-105 CALCIUM (BEAKER) (test ssmd=850) 8.6 mg/dL 8.4-10.2 EGFR (BEAKER) (test cvku=3246) 21 mL/min/1.73 sq m ESTIMATED GFR IS NOT ACCURATE CREATININE CLEARANCE IN PREDICTING GLOMERULAR FILTRATION RATE. ESTIMATED GFR IS NOT APPLICABLE FOR DIALYSIS PATIENTS. PERIPHERAL BLOOD SMEAR - PATHOLOGIST [id number] 17:02:00* Test Item Value Reference Range Comments RBC MORPHOLOGY (BEAKER) (test poht=2043) Anisocytosis RBC MORPHOLOGY (BEAKER) (test kjyl=48011) Poikilocytosis [id number] (BEAKER) (test qmjj=3650) Stephanie Christy M.D. ( electronic signature) HEMOGLOBIN AND [id number] 16:29:00* Test Item Value Reference Range Comments HEMOGLOBIN (BEAKER) (test snzb=177) 7.4 GM/DL 11.2-15.7 HEMATOCRIT (BEAKER) (test ikhv=439) 24.1 % 34.1-44.9 URINE PROTEIN ELECTROPHORESIS, [id number] 16:22:00* Test Item Value Reference Range Comments PROTEIN, URINE (BEAKER) (test rycq=6582) 62 mg/dL 0-14 ALBUMIN URINE ELP (BEAKER) (test ogcp=7780) 80.9 % GAMMA GLOBULIN URINE (BEAKER) (test ysly=2016) 19.1 % UPEP, ID-438 (BEAKER) (test kokx=8216) No monoclonal bands detected. SAUR-CFCDYCCFXNQ-129 (BEAKER) (test lxyq=9392) Kacie Kirby MD ( electronic signature) PROTEIN ELECTROPHORESIS, [id number] 16:10:00* Test Item Value Reference Range Comments ALBUMIN FRACTION (BEAKER) (test qdit=209) 3.3 g/dL 3.5-5.5 ALPHA 1 FRACTION (BEAKER) (test cnbw=113) 0.4 g/dL 0.2-0.4 ALPHA 2 FRACTION (BEAKER) (test hhue=577) 0.7 g/dL 0.5-0.9 BETA FRACTION (BEAKER) (test bixa=211) 0.8 g/dL 0.6-1.1 GAMMA GLOBULIN FRACTION (BEAKER) (test bxkl=352) 0.8 g/dL 0.7-1.7 INTERPRETATION-119 (BEAKER) (test rtza=4687) All fractions present in expected distribution. No monoclonal bands detected. [id number] (BEAKER) (test hxec=7945) Kacie Kirby MD ( electronic signature) PROTEIN TOTAL SERUM, SPEP (BEAKER) (test vjfg=9928) 6.0 gm/dL 6.0-8.3 U/S, RENAL WITH [id number] 15:03:00Reason for exam:->joyce on ckdFINAL REPORT Ultrasound of the Kidneys and Doppler [...] measuring up to 1.9 cm. Signed: Andrew Englishort Verified Date/ Time: 10/03/2017 15:03:38 Reading Location: [address] Ultrasound Reading Room , CHEST, 1 VIEW, NON [id number] 07:45:00Reason for exam:->evsl for orsening edema, effusion, infiltrate. increasing fio2 requirementsShould this be performed at the bedside?->YesFINAL REPORT Chest one view AP 10/03/2017 7:44 AM CLINICAL INDICATION: evsl for orsening edema, effusion, infiltrate. increasing fio2 requirements COMPARISON: 10/01/2017 IMPRESSION: The cardiac silhouette is enlarged, but stable. There is moderately advanced pulmonary edema with bilateral small volume pleural effusions. Bibasilar pulmonary opacities may reflect atelectasis or pneumonia. Signed: Kishor Roman Verified Date/Time: 10/03/2017 07:45:02 Reading Location: [facility] Radiology Reading Room C METABOLIC [id number] 05 :30:00* Test Item Value Reference Range Comments SODIUM (BEAKER) (test rgqt=051) 141 meq/L 136-145 POTASSIUM (BEAKER) (test xyqx=428) 3.4 meq/L 3.5-5.1 CHLORIDE (BEAKER) (test vlqp=910) 105 meq/L 98-107 CO2 (BEAKER) (test qota=227) 25 meq/L 22-29 BLOOD UREA NITROGEN (BEAKER) (test kzlv=707) 40 mg/dL 7-21 CREATININE (BEAKER) (test hrkd=246) 2.63 mg/dL 0.57-1.25 GLUCOSE RANDOM (BEAKER) (test trfy=205) 102 mg/dL 70-105 CALCIUM (BEAKER) (test azis=682) 8.4 mg/dL 8.4-10.2 EGFR (BEAKER) (test gyhp=5109) 21 mL/min/1.73 sq m ESTIMATED GFR IS NOT ACCURATE CREATININE CLEARANCE IN PREDICTING GLOMERULAR FILTRATION RATE. ESTIMATED GFR IS NOT APPLICABLE FOR DIALYSIS PATIENTS. [id number] 05:26:00* Test Item Value Reference Range Comments MAGNESIUM (BEAKER) (test rtgm=467) 1.4 mg/dL 1.6-2.6 CBC W/PLT COUNT & AUTO [id number] 04:48:00* Test Item Value Reference Range Comments WHITE BLOOD CELL COUNT (BEAKER) (test hhsi=826) 12.3 K/ L 3.5-10.5 RED BLOOD CELL COUNT (BEAKER) (test zfpk=615) 2.57 M/ L 3.93-5.22 HEMOGLOBIN (BEAKER) (test nana=113) 7.3 GM/DL 11.2-15.7 HEMATOCRIT (BEAKER) (test gqdy=299) 23.2 % 34.1-44.9 MEAN CORPUSCULAR VOLUME (BEAKER) (test ehfo=923) 90.3 fL 79.4-94.8 MEAN CORPUSCULAR HEMOGLOBIN (BEAKER) (test ntlb=487) 28.4 pg 25.6-32.2 MEAN CORPUSCULAR HEMOGLOBIN CONC (BEAKER) (test pgmx=402) 31.5 GM/DL 32.2- 35.5 RED CELL DISTRIBUTION WIDTH (BEAKER) (test tpaj=246) 15.9 % 11.7-14.4 PLATELET COUNT (BEAKER) (test fkzp=382) 199 K/CU MM 150-450 MEAN PLATELET VOLUME (BEAKER) (test nzxx=273) 9.4 fL 9.4-12.3 NUCLEATED RED BLOOD CELLS (BEAKER) (test qqyw=821) 0 /100 WBC 0-0 NEUTROPHILS RELATIVE PERCENT (BEAKER) (test yuui=664) 84 % LYMPHOCYTES RELATIVE PERCENT (BEAKER) (test sjhl=326) 7 % MONOCYTES RELATIVE PERCENT (BEAKER) (test cwec=880) 9 % EOSINOPHILS RELATIVE PERCENT (BEAKER) (test gaei=030) 0 % BASOPHILS RELATIVE PERCENT (BEAKER) (test pjfd=826) 0 % NEUTROPHILS ABSOLUTE COUNT (BEAKER) (test kziy=672) 10.34 K/ L 1.56-6.13 LYMPHOCYTES ABSOLUTE COUNT (BEAKER) (test rtqi=445) 0.80 K/ L 1.18-3.74 MONOCYTES ABSOLUTE COUNT (BEAKER) (test tybb=074) 1.07 K/ L 0.24-0.36 EOSINOPHILS ABSOLUTE COUNT (BEAKER) (test rcpd=510) 0.00 K/ L 0.04-0.36 BASOPHILS ABSOLUTE COUNT (BEAKER) (test pmel=129) 0.00 K/ L 0.01-0.08 IMMATURE GRANULOCYTES-RELATIVE PERCENT (BEAKER) (test rfgk=1365) 1 % 0-1 BASIC METABOLIC [id number] 16:52:00* Test Item Value Reference Range Comments SODIUM (BEAKER) (test rftu=177) 141 meq/L 136-145 POTASSIUM (BEAKER) (test khjr=558) 3.3 meq/L 3.5-5.1 Specimen slightly hemolyzed CHLORIDE (BEAKER) (test ziau=000) 103 meq/L 98-107 CO2 (BEAKER) (test ukho=143) 28 meq/L 22-29 BLOOD UREA NITROGEN (BEAKER) (test egwz=789) 39 mg/dL 7-21 CREATININE (BEAKER) (test dwme=319) 2.68 mg/dL 0.57-1.25 Specimen slightly hemolyzed GLUCOSE RANDOM (BEAKER) (test chim=279) 117 mg/dL 70-105 CALCIUM (BEAKER) (test izrq=099) 8.6 mg/dL 8.4-10.2 EGFR (BEAKER) (test glgb=6058) 21 mL/min/1.73 sq m ESTIMATED GFR IS NOT ACCURATE CREATININE CLEARANCE IN PREDICTING GLOMERULAR FILTRATION RATE. ESTIMATED GFR IS NOT APPLICABLE FOR DIALYSIS PATIENTS. HEMOGLOBIN AND [id number] 16:14:00* Test Item Value Reference Range Comments HEMOGLOBIN (BEAKER) (test hmdf=373) 7.8 GM/DL 11.2-15.7 HEMATOCRIT (BEAKER) (test rszk=881) 24.5 % 34.1-44.9 CBC W/PLT COUNT & AUTO [id number] 08:40:00* Test Item Value Reference Range Comments WHITE BLOOD CELL COUNT (BEAKER) (test sqxs=688) 7.9 K/ L 3.5-10.5 RED BLOOD CELL COUNT (BEAKER) (test wdth=617) 2.91 M/ L 3.93-5.22 HEMOGLOBIN (BEAKER) (test zlah=389) 8.2 GM/DL 11.2-15.7 HEMATOCRIT (BEAKER) (test gzkm=428) 26.9 % 34.1-44.9 MEAN CORPUSCULAR VOLUME (BEAKER) (test wfjj=469) 92.4 fL 79.4-94.8 MEAN CORPUSCULAR HEMOGLOBIN (BEAKER) (test texb=485) 28.2 pg 25.6-32.2 MEAN CORPUSCULAR HEMOGLOBIN CONC (BEAKER) (test gvzb=278) 30.5 GM/DL 32.2- 35.5 RED CELL DISTRIBUTION WIDTH (BEAKER) (test rmuo=030) 16.1 % 11.7-14.4 PLATELET COUNT (BEAKER) (test nbmd=750) 197 K/CU MM 150-450 MEAN PLATELET VOLUME (BEAKER) (test qggr=007) 10.3 fL 9.4-12.3 NUCLEATED RED BLOOD CELLS (BEAKER) (test bcyf=093) 0 /100 WBC 0-0 NEUTROPHILS RELATIVE PERCENT (BEAKER) (test amch=587) 86 % LYMPHOCYTES RELATIVE PERCENT (BEAKER) (test xppq=917) 6 % MONOCYTES RELATIVE PERCENT (BEAKER) (test nwhq=851) 6 % EOSINOPHILS RELATIVE PERCENT (BEAKER) (test xgin=706) 0 % BASOPHILS RELATIVE PERCENT (BEAKER) (test xuhf=297) 0 % NEUTROPHILS ABSOLUTE COUNT (BEAKER) (test ptjg=440) 6.79 K/ L 1.56-6.13 LYMPHOCYTES ABSOLUTE COUNT (BEAKER) (test ikxc=843) 0.50 K/ L 1.18-3.74 MONOCYTES ABSOLUTE COUNT (BEAKER) (test poiu=769) 0.49 K/ L 0.24-0.36 EOSINOPHILS ABSOLUTE COUNT (BEAKER) (test ocrq=430) 0.00 K/ L 0.04-0.36 BASOPHILS ABSOLUTE COUNT (BEAKER) (test jxsu=149) 0.00 K/ L 0.01-0.08 IMMATURE GRANULOCYTES-RELATIVE PERCENT (BEAKER) (test pcrd=9383) 1 % 0-1 (MANUAL DIFFERENTIAL)2017-10-02 08:40:00* Test Item Value Reference Range Comments TOTAL COUNTED (BEAKER) (test wrcj=7332) WBC MORPHOLOGY (BEAKER) (test rozl=691) Normal PLT MORPHOLOGY (BEAKER) (test tqik=368) Normal ANISOCYTOSIS (BEAKER) (test ogiw=250) 2+ moderate SREEDHAR CELLS (BEAKER) (test bcqk=943) 2+ moderate POIKILOCYTES (BEAKER) (test eimk=283) 1+ few BASIC METABOLIC [id number] 07:19:00* Test Item Value Reference Range Comments SODIUM (BEAKER) (test niia=289) 140 meq/L 136-145 POTASSIUM (BEAKER) (test biud=090) 4.0 meq/L 3.5-5.1 Specimen slightly hemolyzed CHLORIDE (BEAKER) (test omtr=223) 103 meq/L 98-107 CO2 (BEAKER) (test evol=566) 22 meq/L 22-29 BLOOD UREA NITROGEN (BEAKER) (test lxgs=245) 36 mg/dL 7-21 CREATININE (BEAKER) (test xmyy=848) 2.71 mg/dL 0.57-1.25 Specimen slightly hemolyzed GLUCOSE RANDOM (BEAKER) (test gisa=252) 94 mg/dL 70-105 CALCIUM (BEAKER) (test rlje=352) 8.9 mg/dL 8.4-10.2 EGFR (BEAKER) (test bhvr=2795) 20 mL/min/1.73 sq m ESTIMATED GFR IS NOT ACCURATE CREATININE CLEARANCE IN PREDICTING GLOMERULAR FILTRATION RATE. ESTIMATED GFR IS NOT APPLICABLE FOR DIALYSIS PATIENTS. TROPONIN [id number] 07:15:00* Test Item Value Reference Range Comments TROPONIN I (BEAKER) (test bbfx=513) 0.16 ng/mL 0.00-0.03 Troponin I (TnI) levels must be interpreted [...] failure, acidosis, acute neurological disease, and persistent tachyarrhythmia.[id number] 07:08:00* Test Item Value Reference Range Comments MAGNESIUM (BEAKER) (test fqrp=490) 1.7 mg/dL 1.6-2.6 Specimen slightly hemolyzed [id number] 07:08:00* Test Item Value Reference Range Comments PHOSPHORUS (BEAKER) (test oerx=861) 4.0 mg/dL 2.3-4.7 Specimen slightly hemolyzed HEPATIC FUNCTION [id number] 07:08:00* Test Item Value Reference Range Comments TOTAL PROTEIN (BEAKER) (test jksy=623) 6.2 gm/dL 6.0-8.3 Specimen slightly hemolyzed ALBUMIN (BEAKER) (test vbcq=2819) 3.3 g/dL 3.5-5.0 Specimen slightly hemolyzed BILIRUBIN TOTAL (BEAKER) (test bovx=578) 0.7 mg/dL 0.2-1.2 Specimen slightly hemolyzed BILIRUBIN DIRECT (BEAKER) (test lzma=286) 0.3 mg/dL 0.1-0.5 Specimen slightly hemolyzed ALKALINE PHOSPHATASE (BEAKER) (test jxqa=339) 60 U/L 40-150 AST (SGOT) (BEAKER) (test maew=659) 15 U/L 5-34 Specimen slightly hemolyzed ALT (SGPT) (BEAKER) (test ujps=978) 6 U/L 6-55 Specimen slightly hemolyzed POCT-GLUCOSE [id number] 22:51:00* Test Item Value Reference Range Comments POC-GLUCOSE METER (BEAKER) (test skyz=3996) 170 mg/dL 70-110 TESTED AT [place] [id number] [facility] [id number] TROPONIN [id number] 22:11:00* Test Item Value Reference Range Comments TROPONIN I (BEAKER) (test xdmz=907) 0.18 ng/mL 0.00-0.03 Troponin I (TnI) levels must be interpreted [...] failure, acidosis, acute neurological disease, and persistent tachyarrhythmia.HEMOGLOBIN AND [id number] 21: 32:00* Test Item Value Reference Range Comments HEMOGLOBIN (BEAKER) (test bbmz=107) 7.7 GM/DL 11.2-15.7 HEMATOCRIT (BEAKER) (test cuur=033) 23.9 % 34.1-44.9 [id number] 18:28:00* Test Item Value Reference Range Comments HAPTOGLOBIN (BEAKER) (test vujb=042) 104 mg/dL 14-258 URINALYSIS W/ [id number] 17:17:00* Test Item Value Reference Range Comments COLOR (BEAKER) (test yziz=905) Yellow CLARITY (BEAKER) (test ncra=692) Hazy SPECIFIC GRAVITY UA (BEAKER) (test iglj=514) 1.009 1.001-1.035 PH UA (BEAKER) (test ovwa=461) 5.5 5.0-8.0 PROTEIN UA (BEAKER) (test ebgz=725) 50 mg/dL Negative GLUCOSE UA (BEAKER) (test nxii=954) Negative Negative KETONES UA (BEAKER) (test zwpz=323) Negative Negative BILIRUBIN UA (BEAKER) (test jyns=744) Negative Negative BLOOD UA (BEAKER) (test hvdr=917) Negative Negative NITRITE UA (BEAKER) (test aovf=610) Negative Negative LEUKOCYTE ESTERASE UA (BEAKER) (test rhtu=353) Moderate Negative UROBILINOGEN UA (BEAKER) (test bpwc=318) 0.2 mg/dL 0.2-1.0 RBC UA (BEAKER) (test grfr=963) < /HPF WBC UA (BEAKER) (test awgj=941) 3 /HPF BACTERIA (BEAKER) (test lucs=911) Many SQUAMOUS EPITHELIAL (BEAKER) (test zgqw=018) < /HPF HYALINE CASTS (BEAKER) (test szty=853) 2 /LPF CASTS (BEAKER) (test uxwt=2233) 2 /LPF CRYSTALS, URINE (BEAKER) (test yyao=9593) Rare SOURCE(BEAKER) (test nqas=1181) Urine, Sen BASIC METABOLIC [id number] 16:21:00* Test Item Value Reference Range Comments SODIUM (BEAKER) (test jddf=331) 137 meq/L 136-145 POTASSIUM (BEAKER) (test hzkx=252) 3.9 meq/L 3.5-5.1 CHLORIDE (BEAKER) (test ezth=248) 100 meq/L 98-107 CO2 (BEAKER) (test gidz=768) 25 meq/L 22-29 BLOOD UREA NITROGEN (BEAKER) (test pfvv=945) 34 mg/dL 7-21 CREATININE (BEAKER) (test xdpi=131) 2.84 mg/dL 0.57-1.25 GLUCOSE RANDOM (BEAKER) (test zbvi=393) 133 mg/dL 70-105 CALCIUM (BEAKER) (test djzg=234) 9.2 mg/dL 8.4-10.2 EGFR (BEAKER) (test rssl=7846) 19 mL/min/1.73 sq m ESTIMATED GFR IS NOT ACCURATE CREATININE CLEARANCE IN PREDICTING GLOMERULAR FILTRATION RATE. ESTIMATED GFR IS NOT APPLICABLE FOR DIALYSIS PATIENTS. [id number] 16:10:00* Test Item Value Reference Range Comments FERRITIN (BEAKER) (test euar=573) 1019 ng/mL 5-275 PTH, [id number] 15:58:00* Test Item Value Reference Range Comments PARATHYROID HORMONE INTACT (BEAKER) (test mydx=936) 223.4 pg/mL 8.5-72.5 LACTATE DEHYDROGENASE (LDH)2017-10-01 15:50:00* Test Item Value Reference Range Comments LACTATE DEHYDROGENASE (BEAKER) (test frsv=966) 256 U/L 125-220 IRON, TIBC, % SAT. (WITHOUT FERRITIN)2017-10-01 15:49:00* Test Item Value Reference Range Comments IRON (BEAKER) (test ahkz=942) 33 ug/dL 40-160 TOTAL IRON BINDING CAPACITY (BEAKER) (test noiu=320) 186 ug/dL 250-450 IRON % SATURATION (2) (BEAKER) (test hmtu=7954) 18 % 20-55 CREATININE, RANDOM [id number] 15:49:00* Test Item Value Reference Range Comments CREATININE URINE (BEAKER) (test ztkd=534) 82.2 mg/dL Reference Range: No NormalsPROTEIN, RANDOM [id number] 15:49:00* Test Item Value Reference Range Comments PROTEIN, URINE (BEAKER) (test uevg=4299) 62 mg/dL 0-14 RETICULOCYTE [id number] 15:35:00* Test Item Value Reference Range Comments RETICULOCYTE COUNT PCT (BEAKER) (test cynq=550) 2.2 % 0.5-1.7 HEMOGLOBIN AND [id number] 15:35:00* Test Item Value Reference Range Comments HEMOGLOBIN (BEAKER) (test wzzx=336) 8.5 GM/DL 11.2-15.7 HEMATOCRIT (BEAKER) (test ngvw=670) 26.7 % 34.1-44.9 RAD, CHEST, 1 VIEW, NON [id number] 13:39:00Reason for exam:->evaluate lung lim; CHF exacerbationShould this be performed at the bedside?->YesFINAL REPORT Portable chest. HISTORY: Evaluation of lung lim , CHF. Comparison study: October 01, 2017. FINDINGS: The cardiac size is enlarged. There is pulmonary venous congestion and bilateral perihilar airspace disease with atelectasis or consolidation of the lung bases and small effusions. No pneumothorax is seen. Degenerative changes are noted. IMPRESSION: Findings consistent with CHF, similar to previous. In the right clinical setting , a superimposed infection would be difficult to exclude. Clinical correlation and short term imaging follow-up could be made to exclude other etiologies. Signed: Juan Harp Verified Date/Time: 10/01/2017 13:39:42 Reading Location: [address] Body Reading Room , CHEST, 1 VIEW, NON [id number] 09:19:00Reason for exam:->CHEST PAINShould this be performed at the bedside?->YesFINAL REPORT Technique: Single view of the chest COMPARISON: 07/27/2017 FINDINGS: There are increased interstitial markings bilaterally, new from before, probably representing edema/congestion although multifocal pneumonitis could have similar appearance. Small to moderate left pleural effusion, small right pleural effusion are suspected. No gross pneumothorax. Cardiac silhouette is enlarged. Aortic calcifications are seen. No acute skeletal abnormality. Signed: Parish Lora MDReport Verified Date/Time: 10/01/2017 09:19:19 Reading Location: [place] [id number] Transitional Reading Room W/ PLT COUNT & AUTO [id number] 09:03:00* Test Item Value Reference Range Comments WHITE BLOOD CELL COUNT (BEAKER) (test fmna=067) 9.7 K/ L 3.5-10.5 RED BLOOD CELL COUNT (BEAKER) (test zagg=741) 3.13 M/ L 3.93-5.22 HEMOGLOBIN (BEAKER) (test yeva=563) 8.8 GM/DL 11.2-15.7 HEMATOCRIT (BEAKER) (test ybdw=977) 28.0 % 34.1-44.9 MEAN CORPUSCULAR VOLUME (BEAKER) (test tueh=458) 89.5 fL 79.4-94.8 MEAN CORPUSCULAR HEMOGLOBIN (BEAKER) (test zbcx=930) 28.1 pg 25.6-32.2 MEAN CORPUSCULAR HEMOGLOBIN CONC (BEAKER) (test prec=829) 31.4 GM/DL 32.2- 35.5 RED CELL DISTRIBUTION WIDTH (BEAKER) (test mkgj=400) 16.1 % 11.7-14.4 PLATELET COUNT (BEAKER) (test bqzp=304) 213 K/CU MM 150-450 MEAN PLATELET VOLUME (BEAKER) (test fuoi=550) 9.2 fL 9.4-12.3 NUCLEATED RED BLOOD CELLS (BEAKER) (test oncu=904) 0 /100 WBC 0-0 NEUTROPHILS RELATIVE PERCENT (BEAKER) (test pqzd=628) 83 % LYMPHOCYTES RELATIVE PERCENT (BEAKER) (test pqor=581) 9 % MONOCYTES RELATIVE PERCENT (BEAKER) (test vyuw=426) 7 % EOSINOPHILS RELATIVE PERCENT (BEAKER) (test cgth=715) 0 % BASOPHILS RELATIVE PERCENT (BEAKER) (test stme=081) 0 % NEUTROPHILS ABSOLUTE COUNT (BEAKER) (test ktjr=388) 8.07 K/ L 1.56-6.13 LYMPHOCYTES ABSOLUTE COUNT (BEAKER) (test hkdv=727) 0.90 K/ L 1.18-3.74 MONOCYTES ABSOLUTE COUNT (BEAKER) (test enpz=351) 0.64 K/ L 0.24-0.36 EOSINOPHILS ABSOLUTE COUNT (BEAKER) (test uovk=228) 0.03 K/ L 0.04-0.36 BASOPHILS ABSOLUTE COUNT (BEAKER) (test bdrj=146) 0.01 K/ L 0.01-0.08 IMMATURE GRANULOCYTES-RELATIVE PERCENT (BEAKER) (test donr=9135) 1 % 0-1 BASIC METABOLIC [id number] 09:03:00* Test Item Value Reference Range Comments SODIUM (BEAKER) (test uqrr=853) 138 meq/L 136-145 POTASSIUM (BEAKER) (test uhtq=672) 4.2 meq/L 3.5-5.1 CHLORIDE (BEAKER) (test ubex=496) 100 meq/L 98-107 CO2 (BEAKER) (test bgsd=820) 26 meq/L 22-29 BLOOD UREA NITROGEN (BEAKER) (test hihm=822) 34 mg/dL 7-21 CREATININE (BEAKER) (test crzf=610) 2.94 mg/dL 0.57-1.25 GLUCOSE RANDOM (BEAKER) (test bhqm=216) 119 mg/dL 70-105 CALCIUM (BEAKER) (test djsq=250) 9.5 mg/dL 8.4-10.2 EGFR (BEAKER) (test ladd=[phone]) 19 mL/min/1.73 sq m ESTIMATED GFR IS NOT ACCURATE CREATININE CLEARANCE IN PREDICTING GLOMERULAR FILTRATION RATE. ESTIMATED GFR IS NOT APPLICABLE FOR DIALYSIS PATIENTS. CREATINE KINASE (CK), TOTAL AND [id number] 08:35:00* Test Item Value Reference Range Comments CREATINE KINASE TOTAL (BEAKER) (test szto=032) 35 U/L 29-200 CREATINE KINASE-MB (BEAKER) (test nlyo=265) 0.6 ng/mL 0.0-6.6 CREATINE KINASE-MB INDEX (BEAKER) (test ncom=074) 1.7 % CK-MB Reference Range:<6.7 Normal6.7-10.0 Borderline>10.0 AbnormalTROPONIN [id number] 08:35:00* Test Item Value Reference Range Comments TROPONIN I (BEAKER) (test tphu=891) 0.03 ng/mL 0.00-0.03 Troponin I (TnI) levels must be interpreted [...] failure, acidosis, acute neurological disease, and persistent tachyarrhythmia.B-TYPE NATRIURETIC FACTOR (BNP) 08:32:00* Test Item Value Reference Range Comments B-TYPE NATRIURETIC PEPTIDE (BEAKER) (test bufc=729) 1828 pg/mL 0-100 PT/[id number] 08:31:00* Test Item Value Reference Range Comments PROTIME (BEAKER) (test cuke=417) 13.8 seconds 11.7-14.7 INR (BEAKER) (test hrml=065) 1.1 <=5.9 PARTIAL THROMBOPLASTIN TIME (BEAKER) (test kwoi=253) 29.1 seconds 22.5-36.0 RECOMMENDED COUMADIN/WARFARIN INR THERAPY RANGESSTANDARD DOSE: 2.0 - 3.0 Includes: PROPHYLAXIS for venous thrombosis, systemic embolization; TREATMENT for venous thrombosis and/or pulmonary embolus.HIGH RISK: Target INR is 2.5-3.5 for patients with mechanical heart valves.RAD, CHEST, 1 VIEW, NON [id number] 09:29:00Reason for exam:->sobFINAL REPORT Chest one view compared to July 25, 2017 Discussion: Heart size upper limits of normal. Lungs clear. No effusion or pneumothorax. Signed: Shyam Becerril Verified Date/Time: 07/27/2017 09:29:19 Reading Location: [facility] Radiology Reading Room Electronically signed by: SHYAM BECERRIL M.D. on 09:29 AM BASIC METABOLIC [id number] 05:47:00* Test Item Value Reference Range Comments SODIUM (BEAKER) (test lqqv=099) 142 meq/L 136-145 POTASSIUM (BEAKER) (test brql=492) 3.9 meq/L 3.5-5.1 CHLORIDE (BEAKER) (test cctr=967) 101 meq/L 98-107 CO2 (BEAKER) (test spoy=012) 32 meq/L 22-29 BLOOD UREA NITROGEN (BEAKER) (test czcg=092) 62 mg/dL 7-21 CREATININE (BEAKER) (test uvbc=077) 1.97 mg/dL 0.57-1.25 GLUCOSE RANDOM (BEAKER) (test mijp=378) 93 mg/dL 70-105 CALCIUM (BEAKER) (test ooue=418) 9.7 mg/dL 8.4-10.2 EGFR (BEAKER) (test uohs=2536) 29 mL/min/1.73 sq m ESTIMATED GFR IS NOT ACCURATE CREATININE CLEARANCE IN PREDICTING GLOMERULAR FILTRATION RATE. ESTIMATED GFR IS NOT APPLICABLE FOR DIALYSIS PATIENTS. [id number] 05:46:00* Test Item Value Reference Range Comments MAGNESIUM (BEAKER) (test uukf=338) 1.9 mg/dL 1.6-2.6 B-TYPE NATRIURETIC FACTOR (BNP)2017-07-27 05:35:00* Test Item Value Reference Range Comments B-TYPE NATRIURETIC PEPTIDE (BEAKER) (test tjez=997) 590 pg/mL 0-100 HEMOGLOBIN AND [id number] 05:18:00* Test Item Value Reference Range Comments HEMOGLOBIN (BEAKER) (test gzle=971) 10.8 GM/DL 11.2-15.7 HEMATOCRIT (BEAKER) (test ikjo=748) 34.8 % 34.1-44.9 BASIC METABOLIC [id number] 11:18:00* Test Item Value Reference Range Comments SODIUM (BEAKER) (test hlii=981) 139 meq/L 136-145 POTASSIUM (BEAKER) (test gyvp=023) 3.7 meq/L 3.5-5.1 CHLORIDE (BEAKER) (test amej=591) 97 meq/L 98-107 CO2 (BEAKER) (test rpqh=245) 30 meq/L 22-29 BLOOD UREA NITROGEN (BEAKER) (test jjrj=417) 71 mg/dL 7-21 CREATININE (BEAKER) (test wxye=024) 2.26 mg/dL 0.57-1.25 GLUCOSE RANDOM (BEAKER) (test ythp=876) 87 mg/dL 70-105 CALCIUM (BEAKER) (test ymfh=457) 10.0 mg/dL 8.4-10.2 EGFR (BEAKER) (test pdiq=2919) 25 mL/min/1.73 sq m ESTIMATED GFR IS NOT ACCURATE CREATININE CLEARANCE IN PREDICTING GLOMERULAR FILTRATION RATE. ESTIMATED GFR IS NOT APPLICABLE FOR DIALYSIS PATIENTS. T4, [id number] 07:03:00* Test Item Value Reference Range Comments FREE T4 (BEAKER) (test srva=853) 1.08 ng/dL 0.70-1.48 TSH/FREE T4 IF [id number] 05:23:00* Test Item Value Reference Range Comments THYROID STIMULATING HORMONE (BEAKER) (test zmxg=718) 0.28 uIU/mL 0.35-4.94 [id number] 05:22:00* Test Item Value Reference Range Comments FERRITIN (BEAKER) (test nbwh=665) 1309 ng/mL 5-275 IRON, TIBC, % SAT. (WITHOUT FERRITIN)2017-07-26 05:06:00* Test Item Value Reference Range Comments IRON (BEAKER) (test ursn=398) 69 ug/dL 40-160 TOTAL IRON BINDING CAPACITY (BEAKER) (test rjpj=439) 204 ug/dL 250-450 IRON % SATURATION (2) (BEAKER) (test xpha=9977) 34 % 20-55 B-TYPE NATRIURETIC FACTOR (BNP)2017-07-26 05:05:00* Test Item Value Reference Range Comments B-TYPE NATRIURETIC PEPTIDE (BEAKER) (test efag=754) 443 pg/mL 0-100 BASIC METABOLIC [id number] 05:03:00* Test Item Value Reference Range Comments SODIUM (BEAKER) (test kswi=055) 139 meq/L 136-145 POTASSIUM (BEAKER) (test ixed=348) 2.9 meq/L 3.5-5.1 CHLORIDE (BEAKER) (test mkuh=270) 96 meq/L 98-107 CO2 (BEAKER) (test opvf=594) 33 meq/L 22-29 BLOOD UREA NITROGEN (BEAKER) (test ijiy=115) 71 mg/dL 7-21 CREATININE (BEAKER) (test razr=265) 2.37 mg/dL 0.57-1.25 GLUCOSE RANDOM (BEAKER) (test cbpk=167) 102 mg/dL 70-105 CALCIUM (BEAKER) (test wusb=838) 9.4 mg/dL 8.4-10.2 EGFR (BEAKER) (test ojen=7980) 24 mL/min/1.73 sq m ESTIMATED GFR IS NOT ACCURATE CREATININE CLEARANCE IN PREDICTING GLOMERULAR FILTRATION RATE. ESTIMATED GFR IS NOT APPLICABLE FOR DIALYSIS PATIENTS. [id number] 05:01:00* Test Item Value Reference Range Comments MAGNESIUM (BEAKER) (test istn=175) 1.8 mg/dL 1.6-2.6 HEPATIC FUNCTION [id number] 05:01:00* Test Item Value Reference Range Comments TOTAL PROTEIN (BEAKER) (test rmsd=107) 6.2 gm/dL 6.0-8.3 ALBUMIN (BEAKER) (test lbpy=3614) 3.5 g/dL 3.5-5.0 BILIRUBIN TOTAL (BEAKER) (test mavh=110) 0.4 mg/dL 0.2-1.2 BILIRUBIN DIRECT (BEAKER) (test gfud=260) 0.2 mg/dL 0.1-0.5 ALKALINE PHOSPHATASE (BEAKER) (test hxpn=781) 62 U/L 40-150 AST (SGOT) (BEAKER) (test ewhl=587) 13 U/L 5-34 ALT (SGPT) (BEAKER) (test hfyf=169) 6 U/L 6-55 RETICULOCYTE [id number] 04:44:00* Test Item Value Reference Range Comments RETICULOCYTE COUNT PCT (BEAKER) (test oyoo=803) 1.5 % 0.5-1.7 CBC W/PLT COUNT & AUTO [id number] 04:44:00* Test Item Value Reference Range Comments WHITE BLOOD CELL COUNT (BEAKER) (test iffv=921) 5.9 K/ L 3.5-10.5 RED BLOOD CELL COUNT (BEAKER) (test iqrh=485) 3.69 M/ L 3.93-5.22 HEMOGLOBIN (BEAKER) (test orxq=054) 10.4 GM/DL 11.2-15.7 HEMATOCRIT (BEAKER) (test dfvc=532) 32.8 % 34.1-44.9 MEAN CORPUSCULAR VOLUME (BEAKER) (test avhm=750) 88.9 fL 79.4-94.8 MEAN CORPUSCULAR HEMOGLOBIN (BEAKER) (test dkqc=834) 28.2 pg 25.6-32.2 MEAN CORPUSCULAR HEMOGLOBIN CONC (BEAKER) (test eggw=425) 31.7 GM/DL 32.2- 35.5 RED CELL DISTRIBUTION WIDTH (BEAKER) (test kfxg=107) 14.6 % 11.7-14.4 PLATELET COUNT (BEAKER) (test uqix=779) 219 K/CU MM 150-450 MEAN PLATELET VOLUME (BEAKER) (test dvvq=166) 9.8 fL 9.4-12.3 NUCLEATED RED BLOOD CELLS (BEAKER) (test tzfg=146) 0 /100 WBC 0-0 NEUTROPHILS RELATIVE PERCENT (BEAKER) (test chfa=013) 71 % LYMPHOCYTES RELATIVE PERCENT (BEAKER) (test ohpd=892) 16 % MONOCYTES RELATIVE PERCENT (BEAKER) (test boyo=627) 11 % EOSINOPHILS RELATIVE PERCENT (BEAKER) (test oibu=570) 2 % BASOPHILS RELATIVE PERCENT (BEAKER) (test okco=910) 0 % NEUTROPHILS ABSOLUTE COUNT (BEAKER) (test afky=437) 4.13 K/ L 1.56-6.13 LYMPHOCYTES ABSOLUTE COUNT (BEAKER) (test zjon=267) 0.94 K/ L 1.18-3.74 MONOCYTES ABSOLUTE COUNT (BEAKER) (test vfqj=147) 0.64 K/ L 0.24-0.36 EOSINOPHILS ABSOLUTE COUNT (BEAKER) (test gich=057) 0.11 K/ L 0.04-0.36 BASOPHILS ABSOLUTE COUNT (BEAKER) (test jzan=658) 0.02 K/ L 0.01-0.08 IMMATURE GRANULOCYTES-RELATIVE PERCENT (BEAKER) (test vwei=8390) 0 % 0-1 URINALYSIS W/ [id number] 00:11:00* Test Item Value Reference Range Comments COLOR (BEAKER) (test zmzl=147) Yellow CLARITY (BEAKER) (test hadp=330) Hazy SPECIFIC GRAVITY UA (BEAKER) (test zsnj=416) 1.007 1.001-1.035 PH UA (BEAKER) (test ycis=616) 6.5 5.0-8.0 PROTEIN UA (BEAKER) (test kenr=243) Negative Negative GLUCOSE UA (BEAKER) (test wqst=383) Negative Negative KETONES UA (BEAKER) (test izew=320) Negative Negative BILIRUBIN UA (BEAKER) (test dpxw=709) Negative Negative BLOOD UA (BEAKER) (test zqex=500) Negative Negative NITRITE UA (BEAKER) (test rszo=000) Negative Negative LEUKOCYTE ESTERASE UA (BEAKER) (test btwk=838) Large Negative UROBILINOGEN UA (BEAKER) (test uyex=995) 0.2 mg/dL 0.2-1.0 RBC UA (BEAKER) (test ospf=104) < /HPF WBC UA (BEAKER) (test dcth=900) 28 /HPF BACTERIA (BEAKER) (test vhwc=940) Many SQUAMOUS EPITHELIAL (BEAKER) (test zdub=636) 4 /HPF HYALINE CASTS (BEAKER) (test hded=272) 2 /LPF AMORPHOUS CRYSTALS (BEAKER) (test fawa=5291) Occasional SOURCE(BEAKER) (test uvwh=0573) BASIC METABOLIC [id number] 20:37:00* Test Item Value Reference Range Comments SODIUM (BEAKER) (test spxc=931) 137 meq/L 136-145 POTASSIUM (BEAKER) (test hdhx=580) 2.8 meq/L 3.5-5.1 Specimen slightly hemolyzed CHLORIDE (BEAKER) (test xvgi=036) 93 meq/L 98-107 CO2 (BEAKER) (test bqbr=250) 33 meq/L 22-29 BLOOD UREA NITROGEN (BEAKER) (test kcku=219) 73 mg/dL 7-21 CREATININE (BEAKER) (test drxa=362) 2.75 mg/dL 0.57-1.25 Specimen slightly hemolyzed GLUCOSE RANDOM (BEAKER) (test wxlf=401) 128 mg/dL 70-105 CALCIUM (BEAKER) (test yvgo=925) 9.1 mg/dL 8.4-10.2 EGFR (BEAKER) (test cqvo=3814) 20 mL/min/1.73 sq m ESTIMATED GFR IS NOT ACCURATE CREATININE CLEARANCE IN PREDICTING GLOMERULAR FILTRATION RATE. ESTIMATED GFR IS NOT APPLICABLE FOR DIALYSIS PATIENTS. Page me with resultsBASIC METABOLIC [id number] 13:59:00* Test Item Value Reference Range Comments SODIUM (BEAKER) (test wbla=148) 135 meq/L 136-145 POTASSIUM (BEAKER) (test rnml=313) 2.7 meq/L 3.5-5.1 CHLORIDE (BEAKER) (test awwh=746) 88 meq/L 98-107 CO2 (BEAKER) (test lfkt=324) 31 meq/L 22-29 BLOOD UREA NITROGEN (BEAKER) (test colu=665) 79 mg/dL 7-21 CREATININE (BEAKER) (test ogfe=803) 3.03 mg/dL 0.57-1.25 GLUCOSE RANDOM (BEAKER) (test sdsp=892) 112 mg/dL 70-105 CALCIUM (BEAKER) (test yare=008) 10.1 mg/dL 8.4-10.2 EGFR (BEAKER) (test rysu=4182) 18 mL/min/1.73 sq m ESTIMATED GFR IS NOT ACCURATE CREATININE CLEARANCE IN PREDICTING GLOMERULAR FILTRATION RATE. ESTIMATED GFR IS NOT APPLICABLE FOR DIALYSIS PATIENTS. CREATINE KINASE (CK), TOTAL AND [id number] 13:57:00* Test Item Value Reference Range Comments CREATINE KINASE TOTAL (BEAKER) (test mnwe=737) 22 U/L 29-200 CREATINE KINASE-MB (BEAKER) (test luen=164) 0.6 ng/mL 0.0-6.6 CREATINE KINASE-MB INDEX (BEAKER) (test cuyq=748) 2.7 % CK-MB Reference Range:<6.7 Normal6.7-10.0 Borderline>10.0 AbnormalTROPONIN [id number] 13:57:00* Test Item Value Reference Range Comments TROPONIN I (BEAKER) (test booa=032) 0.07 ng/mL 0.00-0.03 Troponin I (TnI) levels must be interpreted [...] failure, acidosis, acute neurological disease, and persistent tachyarrhythmia.B-TYPE NATRIURETIC FACTOR (BNP) 13:55:00* Test Item Value Reference Range Comments B-TYPE NATRIURETIC PEPTIDE (BEAKER) (test utcq=239) 230 pg/mL 0-100 [id number] 13:50:00* Test Item Value Reference Range Comments MAGNESIUM (BEAKER) (test ccmp=600) 2.0 mg/dL 1.6-2.6 PT/[id number] 13:37:00* Test Item Value Reference Range Comments PROTIME (BEAKER) (test hekb=329) 16.0 seconds 11.7-14.7 INR (BEAKER) (test ivaw=151) 1.3 <=5.9 PARTIAL THROMBOPLASTIN TIME (BEAKER) (test mgdq=349) 26.5 seconds 22.5-36.0 RECOMMENDED COUMADIN/WARFARIN INR THERAPY RANGESSTANDARD DOSE: 2.0 - 3.0 Includes: PROPHYLAXIS for venous thrombosis, systemic embolization; TREATMENT for venous thrombosis and/or pulmonary embolus.HIGH RISK: Target INR is 2.5-3.5 for patients with mechanical heart valves.RAD, CHEST, 2 [id number] 13:37: 00Reason for exam:->ABNORMAL LABReason for exam:->GENERALIZED WEAKNESS, NOT ASSOCIATED WITH EXTREMITIESFINAL REPORT EXAM: Frontal and lateral chest radiograph HISTORY: Abnormal lab, generalized weakness COMPARISON: 07/07/2017 IMPRESSION:Minimal linear opacities within lung bases, left greater than right likely represent atelectasis, although underlying airspace disease is not excluded. No pneumothorax or significant pleural fluid is identified. The cardiomediastinal silhouette is within normal limits. Atherosclerotic calcification of the aorta. Degenerative changes of the spine are present. No acute osseous abnormality is identified. Signed: Fabiola Goldsmith [facility] Verified Date/Time: 07/25/2017 13:37:48 Reading Location: [facility] Mammo Reading Room Electronically signed by: FABIOLA GOLDSMITH on 2016 01:37 PM CBC W/PLT COUNT & AUTO [id number] 13:28:00* Test Item Value Reference Range Comments WHITE BLOOD CELL COUNT (BEAKER) (test uhsa=639) 8.0 K/ L 3.5-10.5 RED BLOOD CELL COUNT (BEAKER) (test cusq=413) 4.37 M/ L 3.93-5.22 HEMOGLOBIN (BEAKER) (test wwik=572) 12.2 GM/DL 11.2-15.7 HEMATOCRIT (BEAKER) (test etfv=664) 39.0 % 34.1-44.9 MEAN CORPUSCULAR VOLUME (BEAKER) (test qrau=591) 89.2 fL 79.4-94.8 MEAN CORPUSCULAR HEMOGLOBIN (BEAKER) (test bfsh=280) 27.9 pg 25.6-32.2 MEAN CORPUSCULAR HEMOGLOBIN CONC (BEAKER) (test gedk=788) 31.3 GM/DL 32.2- 35.5 RED CELL DISTRIBUTION WIDTH (BEAKER) (test hwra=373) 14.7 % 11.7-14.4 PLATELET COUNT (BEAKER) (test vbsp=957) 261 K/CU MM 150-450 MEAN PLATELET VOLUME (BEAKER) (test ktpn=691) 9.8 fL 9.4-12.3 NUCLEATED RED BLOOD CELLS (BEAKER) (test zuqk=838) 0 /100 WBC 0-0 NEUTROPHILS RELATIVE PERCENT (BEAKER) (test nnbj=584) 77 % LYMPHOCYTES RELATIVE PERCENT (BEAKER) (test jnwb=308) 12 % MONOCYTES RELATIVE PERCENT (BEAKER) (test lhdt=422) 9 % EOSINOPHILS RELATIVE PERCENT (BEAKER) (test wyoj=288) 1 % BASOPHILS RELATIVE PERCENT (BEAKER) (test sozs=537) 0 % NEUTROPHILS ABSOLUTE COUNT (BEAKER) (test htwg=514) 6.17 K/ L 1.56-6.13 LYMPHOCYTES ABSOLUTE COUNT (BEAKER) (test lpnl=169) 0.97 K/ L 1.18-3.74 MONOCYTES ABSOLUTE COUNT (BEAKER) (test gejw=605) 0.73 K/ L 0.24-0.36 EOSINOPHILS ABSOLUTE COUNT (BEAKER) (test yjyu=665) 0.06 K/ L 0.04-0.36 BASOPHILS ABSOLUTE COUNT (BEAKER) (test smto=783) 0.02 K/ L 0.01-0.08 IMMATURE GRANULOCYTES-RELATIVE PERCENT (BEAKER) (test pece=1573) 0 % 0-1 CALCIUM, [id number] 13:26:00* Test Item Value Reference Range Comments CALCIUM IONIZED (BEAKER) (test hphv=377) 1.12 mmol/L 1.12-1.27 PH, BLOOD (BEAKER) (test hxrq=0882) 7.50 BASIC METABOLIC [id number] 05:00:00* Test Item Value Reference Range Comments SODIUM (BEAKER) (test jzsw=648) 139 meq/L 136-145 POTASSIUM (BEAKER) (test dyis=687) 3.3 meq/L 3.5-5.1 CHLORIDE (BEAKER) (test xuhx=686) 95 meq/L 98-107 CO2 (BEAKER) (test aczq=108) 32 meq/L 22-29 BLOOD UREA NITROGEN (BEAKER) (test tfoa=812) 40 mg/dL 7-21 CREATININE (BEAKER) (test onxp=516) 2.39 mg/dL 0.57-1.25 GLUCOSE RANDOM (BEAKER) (test xava=198) 86 mg/dL 70-105 CALCIUM (BEAKER) (test czdg=284) 9.2 mg/dL 8.4-10.2 EGFR (BEAKER) (test rkhe=5556) 24 mL/min/1.73 sq m ESTIMATED GFR IS NOT ACCURATE CREATININE CLEARANCE IN PREDICTING GLOMERULAR FILTRATION RATE. ESTIMATED GFR IS NOT APPLICABLE FOR DIALYSIS PATIENTS. [id number] 04:57:00* Test Item Value Reference Range Comments MAGNESIUM (BEAKER) (test nprl=010) 2.3 mg/dL 1.6-2.6 BASIC METABOLIC [id number] 15:57:00* Test Item Value Reference Range Comments SODIUM (BEAKER) (test phsm=618) 137 meq/L 136-145 POTASSIUM (BEAKER) (test temb=961) 3.8 meq/L 3.5-5.1 CHLORIDE (BEAKER) (test mbbt=178) 94 meq/L 98-107 CO2 (BEAKER) (test wmag=436) 31 meq/L 22-29 BLOOD UREA NITROGEN (BEAKER) (test yeri=794) 40 mg/dL 7-21 CREATININE (BEAKER) (test whki=895) 2.50 mg/dL 0.57-1.25 GLUCOSE RANDOM (BEAKER) (test xcdm=031) 122 mg/dL 70-105 CALCIUM (BEAKER) (test nlfg=173) 9.0 mg/dL 8.4-10.2 EGFR (BEAKER) (test urso=3956) 22 mL/min/1.73 sq m ESTIMATED GFR IS NOT ACCURATE CREATININE CLEARANCE IN PREDICTING GLOMERULAR FILTRATION RATE. ESTIMATED GFR IS NOT APPLICABLE FOR DIALYSIS PATIENTS. PLATELET AGGREGATION: FUNCTION [id number] 11:23:00* Test Item Value Reference Range Comments WEAK ADP RESULT(BEAKER) (test uydv=5416) 88 % 60-91 PLATELET FUNCTION SCREEN INTERP (BEAKER) (test sckf=2492) 60-100% indicates normal platelet function [id number] (BEAKER) (test hwdf=2874) Cj Pablo M.D. ( electonic signature) PLATELET COUNT AGG (BEAKER) (test bdhw=2234) 253 K/CU MM 150-450 BASIC METABOLIC [id number] 06:31:00* Test Item Value Reference Range Comments SODIUM (BEAKER) (test cykd=030) 138 meq/L 136-145 POTASSIUM (BEAKER) (test ztzt=842) 3.2 meq/L 3.5-5.1 CHLORIDE (BEAKER) (test wxwd=791) 94 meq/L 98-107 CO2 (BEAKER) (test fpqu=339) 32 meq/L 22-29 BLOOD UREA NITROGEN (BEAKER) (test puxn=116) 38 mg/dL 7-21 CREATININE (BEAKER) (test lsui=245) 2.32 mg/dL 0.57-1.25 GLUCOSE RANDOM (BEAKER) (test ikrd=167) 80 mg/dL 70-105 CALCIUM (BEAKER) (test qgxd=237) 8.8 mg/dL 8.4-10.2 EGFR (BEAKER) (test ezam=0063) 24 mL/min/1.73 sq m ESTIMATED GFR IS NOT ACCURATE CREATININE CLEARANCE IN PREDICTING GLOMERULAR FILTRATION RATE. ESTIMATED GFR IS NOT APPLICABLE FOR DIALYSIS PATIENTS. [id number] 06:11:00* Test Item Value Reference Range Comments MAGNESIUM (BEAKER) (test evuj=271) 2.0 mg/dL 1.6-2.6 B-TYPE NATRIURETIC FACTOR (BNP)2017-07-08 06:03:00* Test Item Value Reference Range Comments B-TYPE NATRIURETIC PEPTIDE (BEAKER) (test xxkd=196) 485 pg/mL 0-100 HEMOGLOBIN AND [id number] 05:49:00* Test Item Value Reference Range Comments HEMOGLOBIN (BEAKER) (test sfts=537) 9.9 GM/DL 11.2-15.7 HEMATOCRIT (BEAKER) (test ghfr=594) 32.1 % 34.1-44.9 HEMOGLOBIN AND [id number] 07:20:00* Test Item Value Reference Range Comments HEMOGLOBIN (BEAKER) (test kgny=908) 9.4 GM/DL 11.2-15.7 HEMATOCRIT (BEAKER) (test kpqt=015) 31.3 % 34.1-44.9 BASIC METABOLIC [id number] 07:19:00* Test Item Value Reference Range Comments SODIUM (BEAKER) (test vlbw=070) 139 meq/L 136-145 POTASSIUM (BEAKER) (test mfdq=675) 3.5 meq/L 3.5-5.1 CHLORIDE (BEAKER) (test vvqu=364) 94 meq/L 98-107 CO2 (BEAKER) (test herb=450) 32 meq/L 22-29 BLOOD UREA NITROGEN (BEAKER) (test vmdo=536) 36 mg/dL 7-21 CREATININE (BEAKER) (test cksk=873) 2.28 mg/dL 0.57-1.25 GLUCOSE RANDOM (BEAKER) (test gupu=660) 84 mg/dL 70-105 CALCIUM (BEAKER) (test snhj=556) 8.9 mg/dL 8.4-10.2 EGFR (BEAKER) (test alds=8980) 25 mL/min/1.73 sq m ESTIMATED GFR IS NOT ACCURATE CREATININE CLEARANCE IN PREDICTING GLOMERULAR FILTRATION RATE. ESTIMATED GFR IS NOT APPLICABLE FOR DIALYSIS PATIENTS. [id number] 07:13:00* Test Item Value Reference Range Comments MAGNESIUM (BEAKER) (test cdck=711) 2.1 mg/dL 1.6-2.6 B-TYPE NATRIURETIC FACTOR (BNP)2017-07-07 07:12:00* Test Item Value Reference Range Comments B-TYPE NATRIURETIC PEPTIDE (BEAKER) (test bpon=460) 457 pg/mL 0-100 BASIC METABOLIC [id number] 09:13:00* Test Item Value Reference Range Comments SODIUM (BEAKER) (test clep=371) 139 meq/L 136-145 POTASSIUM (BEAKER) (test xfmk=468) 3.4 meq/L 3.5-5.1 CHLORIDE (BEAKER) (test heao=989) 93 meq/L 98-107 CO2 (BEAKER) (test gjhq=725) 36 meq/L 22-29 BLOOD UREA NITROGEN (BEAKER) (test pzhg=574) 34 mg/dL 7-21 CREATININE (BEAKER) (test aifx=078) 1.94 mg/dL 0.57-1.25 GLUCOSE RANDOM (BEAKER) (test tehy=039) 110 mg/dL 70-105 CALCIUM (BEAKER) (test hvzl=284) 9.4 mg/dL 8.4-10.2 EGFR (BEAKER) (test adnv=4104) 30 mL/min/1.73 sq m ESTIMATED GFR IS NOT ACCURATE CREATININE CLEARANCE IN PREDICTING GLOMERULAR FILTRATION RATE. ESTIMATED GFR IS NOT APPLICABLE FOR DIALYSIS PATIENTS. [id number] 07:08:00* Test Item Value Reference Range Comments MAGNESIUM (BEAKER) (test qzgd=992) 2.2 mg/dL 1.6-2.6 BASIC METABOLIC [id number] 07:08:00* Test Item Value Reference Range Comments SODIUM (BEAKER) (test jfgd=866) 141 meq/L 136-145 POTASSIUM (BEAKER) (test fnhu=177) 3.2 meq/L 3.5-5.1 CHLORIDE (BEAKER) (test yqsk=849) 96 meq/L 98-107 CO2 (BEAKER) (test uovd=380) 36 meq/L 22-29 BLOOD UREA NITROGEN (BEAKER) (test zfvc=687) 34 mg/dL 7-21 CREATININE (BEAKER) (test faiu=786) 1.89 mg/dL 0.57-1.25 GLUCOSE RANDOM (BEAKER) (test ymfx=318) 88 mg/dL 70-105 CALCIUM (BEAKER) (test zupb=041) 9.3 mg/dL 8.4-10.2 EGFR (BEAKER) (test bipf=4477) 31 mL/min/1.73 sq m ESTIMATED GFR IS NOT ACCURATE CREATININE CLEARANCE IN PREDICTING GLOMERULAR FILTRATION RATE. ESTIMATED GFR IS NOT APPLICABLE FOR DIALYSIS PATIENTS. B-TYPE NATRIURETIC FACTOR (BNP)2017-07-06 06:48:00* Test Item Value Reference Range Comments B-TYPE NATRIURETIC PEPTIDE (BEAKER) (test jucn=053) 1045 pg/mL 0-100 BASIC METABOLIC [id number] 09:53:00* Test Item Value Reference Range Comments SODIUM (BEAKER) (test cqiw=881) 141 meq/L 136-145 POTASSIUM (BEAKER) (test ivkj=113) 3.4 meq/L 3.5-5.1 CHLORIDE (BEAKER) (test cwgt=925) 96 meq/L 98-107 CO2 (BEAKER) (test rnvx=907) 34 meq/L 22-29 BLOOD UREA NITROGEN (BEAKER) (test axss=629) 32 mg/dL 7-21 CREATININE (BEAKER) (test mmlt=994) 1.75 mg/dL 0.57-1.25 GLUCOSE RANDOM (BEAKER) (test hloq=153) 94 mg/dL 70-105 CALCIUM (BEAKER) (test pfdp=400) 9.3 mg/dL 8.4-10.2 EGFR (BEAKER) (test jiic=0072) 34 mL/min/1.73 sq m ESTIMATED GFR IS NOT ACCURATE CREATININE CLEARANCE IN PREDICTING GLOMERULAR FILTRATION RATE. ESTIMATED GFR IS NOT APPLICABLE FOR DIALYSIS PATIENTS. HEMOGLOBIN AND [id number] 05:25:00* Test Item Value Reference Range Comments HEMOGLOBIN (BEAKER) (test rduc=000) 8.9 GM/DL 11.2-15.7 HEMATOCRIT (BEAKER) (test gozv=673) 28.5 % 34.1-44.9 [id number] 05:06:00* Test Item Value Reference Range Comments MAGNESIUM (BEAKER) (test migw=992) 1.9 mg/dL 1.6-2.6 BASIC METABOLIC [id number] 16:57:00* Test Item Value Reference Range Comments SODIUM (BEAKER) (test gvhi=616) 137 meq/L 136-145 POTASSIUM (BEAKER) (test mvci=593) 4.6 meq/L 3.5-5.1 Specimen slightly hemolyzed CHLORIDE (BEAKER) (test owyg=228) 99 meq/L 98-107 CO2 (BEAKER) (test bhxo=141) 24 meq/L 22-29 BLOOD UREA NITROGEN (BEAKER) (test lnpf=483) 33 mg/dL 7-21 CREATININE (BEAKER) (test sqgi=707) 1.76 mg/dL 0.57-1.25 Specimen slightly hemolyzed GLUCOSE RANDOM (BEAKER) (test nndq=588) 84 mg/dL 70-105 CALCIUM (BEAKER) (test pjwo=887) 9.0 mg/dL 8.4-10.2 EGFR (BEAKER) (test eyag=0391) 34 mL/min/1.73 sq m ESTIMATED GFR IS NOT ACCURATE CREATININE CLEARANCE IN PREDICTING GLOMERULAR FILTRATION RATE. ESTIMATED GFR IS NOT APPLICABLE FOR DIALYSIS PATIENTS. 1 hour after the second KCL givenB-TYPE NATRIURETIC FACTOR (BNP)2017-07-04 07:12 :00* Test Item Value Reference Range Comments B-TYPE NATRIURETIC PEPTIDE (BEAKER) (test nfvh=389) 2348 pg/mL 0-100 [id number] 07:06:00* Test Item Value Reference Range Comments MAGNESIUM (BEAKER) (test syrb=643) 1.9 mg/dL 1.6-2.6 BASIC METABOLIC [id number] 07:06:00* Test Item Value Reference Range Comments SODIUM (BEAKER) (test sqkn=379) 138 meq/L 136-145 POTASSIUM (BEAKER) (test grjx=924) 3.0 meq/L 3.5-5.1 CHLORIDE (BEAKER) (test ksau=672) 96 meq/L 98-107 CO2 (BEAKER) (test tqob=450) 32 meq/L 22-29 BLOOD UREA NITROGEN (BEAKER) (test wuti=763) 33 mg/dL 7-21 CREATININE (BEAKER) (test vgvf=414) 1.67 mg/dL 0.57-1.25 GLUCOSE RANDOM (BEAKER) (test vakm=852) 84 mg/dL 70-105 CALCIUM (BEAKER) (test mlsq=321) 9.3 mg/dL 8.4-10.2 EGFR (BEAKER) (test mbyp=4577) 36 mL/min/1.73 sq m ESTIMATED GFR IS NOT ACCURATE CREATININE CLEARANCE IN PREDICTING GLOMERULAR FILTRATION RATE. ESTIMATED GFR IS NOT APPLICABLE FOR DIALYSIS PATIENTS. HEMOGLOBIN AND [id number] 06:46:00* Test Item Value Reference Range Comments HEMOGLOBIN (BEAKER) (test umse=972) 9.1 GM/DL 11.2-15.7 HEMATOCRIT (BEAKER) (test hltl=929) 29.2 % 34.1-44.9 B-TYPE NATRIURETIC FACTOR (BNP)2017-07-03 06:56:00* Test Item Value Reference Range Comments B-TYPE NATRIURETIC PEPTIDE (BEAKER) (test mtnd=963) 1400 pg/mL 0-100 [id number] 06:49:00* Test Item Value Reference Range Comments MAGNESIUM (BEAKER) (test iyte=685) 2.3 mg/dL 1.6-2.6 Specimen moderately hemolyzed BASIC METABOLIC [id number] 06:49:00* Test Item Value Reference Range Comments SODIUM (BEAKER) (test rlgx=076) 140 meq/L 136-145 POTASSIUM (BEAKER) (test sfsv=491) 4.0 meq/L 3.5-5.1 Specimen moderately hemolyzed CHLORIDE (BEAKER) (test loze=773) 102 meq/L 98-107 CO2 (BEAKER) (test obgz=216) 25 meq/L 22-29 BLOOD UREA NITROGEN (BEAKER) (test xynx=081) 32 mg/dL 7-21 CREATININE (BEAKER) (test xcco=380) 1.60 mg/dL 0.57-1.25 Specimen moderately hemolyzed GLUCOSE RANDOM (BEAKER) (test gofx=220) 78 mg/dL 70-105 CALCIUM (BEAKER) (test rbhc=686) 9.2 mg/dL 8.4-10.2 EGFR (BEAKER) (test fhab=0219) 37 mL/min/1.73 sq m ESTIMATED GFR IS NOT ACCURATE CREATININE CLEARANCE IN PREDICTING GLOMERULAR FILTRATION RATE. ESTIMATED GFR IS NOT APPLICABLE FOR DIALYSIS PATIENTS. HEMOGLOBIN AND [id number] 06:22:00* Test Item Value Reference Range Comments HEMOGLOBIN (BEAKER) (test hczp=073) 8.1 GM/DL 11.2-15.7 HEMATOCRIT (BEAKER) (test cvok=495) 26.4 % 34.1-44.9 [id number] 06:05:00* Test Item Value Reference Range Comments PHOSPHORUS (BEAKER) (test euzh=010) 3.5 mg/dL 2.3-4.7 [id number] 06:05:00* Test Item Value Reference Range Comments MAGNESIUM (BEAKER) (test zmna=180) 2.1 mg/dL 1.6-2.6 BASIC METABOLIC [id number] 06:05:00* Test Item Value Reference Range Comments SODIUM (BEAKER) (test hkwn=360) 142 meq/L 136-145 POTASSIUM (BEAKER) (test qoby=977) 3.8 meq/L 3.5-5.1 CHLORIDE (BEAKER) (test lymn=567) 104 meq/L 98-107 CO2 (BEAKER) (test kegy=618) 29 meq/L 22-29 BLOOD UREA NITROGEN (BEAKER) (test eejk=223) 35 mg/dL 7-21 CREATININE (BEAKER) (test dzat=180) 1.60 mg/dL 0.57-1.25 GLUCOSE RANDOM (BEAKER) (test qxiu=419) 96 mg/dL 70-105 CALCIUM (BEAKER) (test ivpa=191) 9.2 mg/dL 8.4-10.2 EGFR (BEAKER) (test rrjw=5978) 37 mL/min/1.73 sq m ESTIMATED GFR IS NOT ACCURATE CREATININE CLEARANCE IN PREDICTING GLOMERULAR FILTRATION RATE. ESTIMATED GFR IS NOT APPLICABLE FOR DIALYSIS PATIENTS. B-TYPE NATRIURETIC FACTOR (BNP)2017-07-02 05:43:00* Test Item Value Reference Range Comments B-TYPE NATRIURETIC PEPTIDE (BEAKER) (test nmme=460) 1712 pg/mL 0-100 CBC W/PLT COUNT & AUTO [id number] 05:25:00* Test Item Value Reference Range Comments WHITE BLOOD CELL COUNT (BEAKER) (test dakh=945) 6.6 K/ L 3.5-10.5 RED BLOOD CELL COUNT (BEAKER) (test nyan=620) 2.88 M/ L 3.93-5.22 HEMOGLOBIN (BEAKER) (test iyrr=702) 8.2 GM/DL 11.2-15.7 HEMATOCRIT (BEAKER) (test nycg=058) 26.9 % 34.1-44.9 MEAN CORPUSCULAR VOLUME (BEAKER) (test zylz=493) 93.4 fL 79.4-94.8 MEAN CORPUSCULAR HEMOGLOBIN (BEAKER) (test fhue=359) 28.5 pg 25.6-32.2 MEAN CORPUSCULAR HEMOGLOBIN CONC (BEAKER) (test eekq=718) 30.5 GM/DL 32.2- 35.5 RED CELL DISTRIBUTION WIDTH (BEAKER) (test xnsp=706) 18.2 % 11.7-14.4 PLATELET COUNT (BEAKER) (test tcmr=186) 224 K/CU MM 150-450 MEAN PLATELET VOLUME (BEAKER) (test qfpi=734) 9.3 fL 9.4-12.3 NUCLEATED RED BLOOD CELLS (BEAKER) (test gpbe=221) 0 /100 WBC 0-0 NEUTROPHILS RELATIVE PERCENT (BEAKER) (test rqmx=238) 75 % LYMPHOCYTES RELATIVE PERCENT (BEAKER) (test ldfp=759) 13 % MONOCYTES RELATIVE PERCENT (BEAKER) (test jpbl=091) 10 % EOSINOPHILS RELATIVE PERCENT (BEAKER) (test ixxk=814) 1 % BASOPHILS RELATIVE PERCENT (BEAKER) (test lqbg=936) 0 % NEUTROPHILS ABSOLUTE COUNT (BEAKER) (test hbsq=684) 4.95 K/ L 1.56-6.13 LYMPHOCYTES ABSOLUTE COUNT (BEAKER) (test luji=668) 0.87 K/ L 1.18-3.74 MONOCYTES ABSOLUTE COUNT (BEAKER) (test hddr=304) 0.64 K/ L 0.24-0.36 EOSINOPHILS ABSOLUTE COUNT (BEAKER) (test gyvu=573) 0.04 K/ L 0.04-0.36 BASOPHILS ABSOLUTE COUNT (BEAKER) (test ecox=839) 0.01 K/ L 0.01-0.08 IMMATURE GRANULOCYTES-RELATIVE PERCENT (BEAKER) (test lwrv=8997) 1 % 0-1 URINALYSIS W/ [id number] 22:40:00* Test Item Value Reference Range Comments COLOR (BEAKER) (test ifvq=211) Yellow CLARITY (BEAKER) (test ukah=978) Clear SPECIFIC GRAVITY UA (BEAKER) (test dbkr=954) 1.008 1.001-1.035 PH UA (BEAKER) (test otij=368) 5.5 5.0-8.0 PROTEIN UA (BEAKER) (test momd=564) Negative Negative GLUCOSE UA (BEAKER) (test loau=149) Negative Negative KETONES UA (BEAKER) (test jxrb=971) Negative Negative BILIRUBIN UA (BEAKER) (test yvoa=520) Negative Negative BLOOD UA (BEAKER) (test emau=763) Negative Negative NITRITE UA (BEAKER) (test ortl=284) Negative Negative LEUKOCYTE ESTERASE UA (BEAKER) (test ahoj=229) Negative Negative UROBILINOGEN UA (BEAKER) (test vdqp=407) 0.2 mg/dL 0.2-1.0 RBC UA (BEAKER) (test qdho=359) 0 /HPF WBC UA (BEAKER) (test dhht=541) < /HPF SQUAMOUS EPITHELIAL (BEAKER) (test xdsq=415) 2 /HPF HYALINE CASTS (BEAKER) (test tmlq=050) 5 /LPF SOURCE(BEAKER) (test yeee=6839) Urine, Clean Catch CREATININE, RANDOM [id number] 22:19:00* Test Item Value Reference Range Comments CREATININE URINE (BEAKER) (test etvw=143) 56.6 mg/dL Reference Range: No NormalsPROTEIN, RANDOM [id number] 22:19:00* Test Item Value Reference Range Comments PROTEIN, URINE (BEAKER) (test qbnw=7719) 15 mg/dL 0-14 T4, [id number] 20:02:00* Test Item Value Reference Range Comments FREE T4 (BEAKER) (test hsne=446) 0.97 ng/dL 0.70-1.48 [id number] 20:02:00* Test Item Value Reference Range Comments FERRITIN (BEAKER) (test icib=804) 283 ng/mL 5-275 Effective 10/01/2014: Reference Range ChangeNew: Male 5-275 Previous: Male 22-322 Female 5-275 Female 10-291 VITAMIN B12 AND [id number] 20:02:00* Test Item Value Reference Range Comments VITAMIN B12 (BEAKER) (test zkcd=090) 398 pg/mL 213-816 FOLATE (BEAKER) (test glzk=398) 7.9 ng/mL >=7.0 Effective 10/01/2014: Folate Reference Range ChangeNew: >=7.0 Previous: >= 5.4HEMOGLOBIN [id number] 09:15:00* Test Item Value Reference Range Comments HEMOGLOBIN A1C (BEAKER) (test sgge=779) 4.7 % 4.3-6.1 TSH/FREE T4 IF [id number] 07:17:00* Test Item Value Reference Range Comments THYROID STIMULATING HORMONE (BEAKER) (test ehjt=027) 0.25 uIU/mL 0.35-4.94 [id number] 07:14:00* Test Item Value Reference Range Comments PHOSPHORUS (BEAKER) (test ulkg=479) 3.4 mg/dL 2.3-4.7 [id number] 07:14:00* Test Item Value Reference Range Comments MAGNESIUM (BEAKER) (test wpih=691) 1.7 mg/dL 1.6-2.6 BASIC METABOLIC [id number] 07:14:00* Test Item Value Reference Range Comments SODIUM (BEAKER) (test dyya=759) 141 meq/L 136-145 POTASSIUM (BEAKER) (test vvex=238) 3.7 meq/L 3.5-5.1 CHLORIDE (BEAKER) (test rbsf=992) 104 meq/L 98-107 CO2 (BEAKER) (test sofd=808) 30 meq/L 22-29 BLOOD UREA NITROGEN (BEAKER) (test bivn=638) 34 mg/dL 7-21 CREATININE (BEAKER) (test wlnc=765) 1.41 mg/dL 0.57-1.25 GLUCOSE RANDOM (BEAKER) (test hrgm=354) 97 mg/dL 70-105 CALCIUM (BEAKER) (test phxq=834) 8.8 mg/dL 8.4-10.2 EGFR (BEAKER) (test cqqj=4323) 43 mL/min/1.73 sq m ESTIMATED GFR IS NOT ACCURATE CREATININE CLEARANCE IN PREDICTING GLOMERULAR FILTRATION RATE. ESTIMATED GFR IS NOT APPLICABLE FOR DIALYSIS PATIENTS. LIPID [id number] 07:14:00* Test Item Value Reference Range Comments TRIGLYCERIDES (BEAKER) (test zqji=838) 43 mg/dL CHOLESTEROL (BEAKER) (test xuib=347) 160 mg/dL HDL CHOLESTEROL (BEAKER) (test uefn=680) 61 mg/dL LDL CHOLESTEROL CALCULATED (BEAKER) (test hzsz=815) 90 mg/dL Triglyceride Reference Range: Low Risk <150 Borderline 150-199 High Risk 200-499 Very High Risk >=500Cholesterol Reference Range: Low Risk <200 Borderline 200-239 High Risk >240HDL Cholesterol Reference Range: Low Risk >=60 High Risk <40LDL Cholesterol Reference Range: Optimal <100 Near Optimal 100-129 Borderline 130-159 High 160-189 Very High >=190 LACTATE DEHYDROGENASE (LDH)2017-07-01 07:14:00* Test Item Value Reference Range Comments LACTATE DEHYDROGENASE (BEAKER) (test zzxy=105) 249 U/L 125-220 PTH, [id number] 07:00:00* Test Item Value Reference Range Comments PARATHYROID HORMONE INTACT (BEAKER) (test sdle=125) 242.7 pg/mL 8.5-72.5 Effective 10/01/2014: Reference Range ChangeNew: 8.5-72.5 Previous: 15.0- 90.0RETICULOCYTE [id number] 07:00:00* Test Item Value Reference Range Comments RETICULOCYTE COUNT PCT (BEAKER) (test gzmy=371) 6.4 % 0.5-1.7 CBC W/PLT COUNT & AUTO [id number] 07:00:00* Test Item Value Reference Range Comments WHITE BLOOD CELL COUNT (BEAKER) (test oqxa=918) 8.1 K/ L 3.5-10.5 RED BLOOD CELL COUNT (BEAKER) (test jggj=119) 2.92 M/ L 3.93-5.22 HEMOGLOBIN (BEAKER) (test mkqh=283) 8.3 GM/DL 11.2-15.7 HEMATOCRIT (BEAKER) (test cvzv=620) 27.2 % 34.1-44.9 MEAN CORPUSCULAR VOLUME (BEAKER) (test byoi=310) 93.2 fL 79.4-94.8 MEAN CORPUSCULAR HEMOGLOBIN (BEAKER) (test gthh=470) 28.4 pg 25.6-32.2 MEAN CORPUSCULAR HEMOGLOBIN CONC (BEAKER) (test gbzj=300) 30.5 GM/DL 32.2- 35.5 RED CELL DISTRIBUTION WIDTH (BEAKER) (test edyg=555) 18.5 % 11.7-14.4 PLATELET COUNT (BEAKER) (test yroe=540) 223 K/CU MM 150-450 MEAN PLATELET VOLUME (BEAKER) (test vfqu=922) 9.3 fL 9.4-12.3 NUCLEATED RED BLOOD CELLS (BEAKER) (test ssci=352) 0 /100 WBC 0-0 NEUTROPHILS RELATIVE PERCENT (BEAKER) (test psgi=833) 87 % LYMPHOCYTES RELATIVE PERCENT (BEAKER) (test esnq=158) 7 % MONOCYTES RELATIVE PERCENT (BEAKER) (test kcvj=974) 5 % EOSINOPHILS RELATIVE PERCENT (BEAKER) (test wxih=012) 0 % BASOPHILS RELATIVE PERCENT (BEAKER) (test iprx=165) 0 % NEUTROPHILS ABSOLUTE COUNT (BEAKER) (test xzvv=944) 7.03 K/ L 1.56-6.13 LYMPHOCYTES ABSOLUTE COUNT (BEAKER) (test wahr=861) 0.58 K/ L 1.18-3.74 MONOCYTES ABSOLUTE COUNT (BEAKER) (test bgpt=900) 0.39 K/ L 0.24-0.36 EOSINOPHILS ABSOLUTE COUNT (BEAKER) (test mtbt=410) 0.00 K/ L 0.04-0.36 BASOPHILS ABSOLUTE COUNT (BEAKER) (test zhqi=187) 0.01 K/ L 0.01-0.08 IMMATURE GRANULOCYTES-RELATIVE PERCENT (BEAKER) (test fjrx=4820) 1 % 0-1 B-TYPE NATRIURETIC FACTOR (BNP)2017-07-01 06:59:00* Test Item Value Reference Range Comments B-TYPE NATRIURETIC PEPTIDE (BEAKER) (test wnkz=492) 1882 pg/mL 0-100 [id number] 06:54:00* Test Item Value Reference Range Comments HAPTOGLOBIN (BEAKER) (test lrkx=787) 70 mg/dL 14-258 Effective 10/01/2014: Reference Range ChangeNew: 14-258 Previous: 36-195IRON, TIBC, % SAT. (WITHOUT FERRITIN)2017-07-01 06:54:00* Test Item Value Reference Range Comments IRON (BEAKER) (test odht=044) 25 ug/dL 40-160 TOTAL IRON BINDING CAPACITY (BEAKER) (test kazc=323) 245 ug/dL 250-450 IRON % SATURATION (2) (BEAKER) (test xydx=6859) 10 % 20-55 [id number] 06:53:00* Test Item Value Reference Range Comments ETHANOL (BEAKER) (test gssa=638) < mg/dL <=10 BASIC METABOLIC [id number] 05:57:00* Test Item Value Reference Range Comments SODIUM (BEAKER) (test lnbv=150) 139 meq/L 136-145 POTASSIUM (BEAKER) (test wrte=054) 3.3 meq/L 3.5-5.1 CHLORIDE (BEAKER) (test bzcj=454) 102 meq/L 98-107 CO2 (BEAKER) (test ctgb=150) 25 meq/L 22-29 BLOOD UREA NITROGEN (BEAKER) (test aalr=964) 37 mg/dL 7-21 CREATININE (BEAKER) (test tggj=009) 1.60 mg/dL 0.57-1.25 GLUCOSE RANDOM (BEAKER) (test bhit=061) 94 mg/dL 70-105 CALCIUM (BEAKER) (test zddf=662) 8.6 mg/dL 8.4-10.2 EGFR (BEAKER) (test cxig=4268) 37 mL/min/1.73 sq m ESTIMATED GFR IS NOT ACCURATE CREATININE CLEARANCE IN PREDICTING GLOMERULAR FILTRATION RATE. ESTIMATED GFR IS NOT APPLICABLE FOR DIALYSIS PATIENTS. CBC W/PLT COUNT & AUTO [id number] 05:23:00* Test Item Value Reference Range Comments WHITE BLOOD CELL COUNT (BEAKER) (test wpjo=627) 6.8 K/ L 3.5-10.5 RED BLOOD CELL COUNT (BEAKER) (test eztf=346) 2.79 M/ L 3.93-5.22 HEMOGLOBIN (BEAKER) (test ehgp=872) 8.2 GM/DL 11.2-15.7 HEMATOCRIT (BEAKER) (test jwgb=731) 25.8 % 34.1-44.9 MEAN CORPUSCULAR VOLUME (BEAKER) (test tikl=217) 92.5 fL 79.4-94.8 MEAN CORPUSCULAR HEMOGLOBIN (BEAKER) (test uvbm=378) 29.4 pg 25.6-32.2 MEAN CORPUSCULAR HEMOGLOBIN CONC (BEAKER) (test vypu=789) 31.8 GM/DL 32.2- 35.5 RED CELL DISTRIBUTION WIDTH (BEAKER) (test olpe=984) 18.3 % 11.7-14.4 PLATELET COUNT (BEAKER) (test jctd=064) 208 K/CU MM 150-450 MEAN PLATELET VOLUME (BEAKER) (test yvec=771) 9.2 fL 9.4-12.3 NUCLEATED RED BLOOD CELLS (BEAKER) (test matd=405) 0 /100 WBC 0-0 NEUTROPHILS RELATIVE PERCENT (BEAKER) (test usww=802) 72 % LYMPHOCYTES RELATIVE PERCENT (BEAKER) (test xjve=926) 16 % MONOCYTES RELATIVE PERCENT (BEAKER) (test kekh=046) 10 % EOSINOPHILS RELATIVE PERCENT (BEAKER) (test fcua=497) 1 % BASOPHILS RELATIVE PERCENT (BEAKER) (test rojj=311) 0 % NEUTROPHILS ABSOLUTE COUNT (BEAKER) (test itmn=030) 4.94 K/ L 1.56-6.13 LYMPHOCYTES ABSOLUTE COUNT (BEAKER) (test ttjz=076) 1.07 K/ L 1.18-3.74 MONOCYTES ABSOLUTE COUNT (BEAKER) (test eugt=153) 0.68 K/ L 0.24-0.36 EOSINOPHILS ABSOLUTE COUNT (BEAKER) (test vaoo=467) 0.06 K/ L 0.04-0.36 BASOPHILS ABSOLUTE COUNT (BEAKER) (test fojw=041) 0.02 K/ L 0.01-0.08 IMMATURE GRANULOCYTES-RELATIVE PERCENT (BEAKER) (test gcxk=6342) 1 % 0-1 HEPATIC FUNCTION [id number] 19:40:00* Test Item Value Reference Range Comments TOTAL PROTEIN (BEAKER) (test zlqb=471) 6.3 gm/dL 6.0-8.3 ALBUMIN (BEAKER) (test qjmb=7967) 3.6 g/dL 3.5-5.0 BILIRUBIN TOTAL (BEAKER) (test risa=308) 0.3 mg/dL 0.2-1.2 BILIRUBIN DIRECT (BEAKER) (test qavp=595) 0.2 mg/dL 0.1-0.5 ALKALINE PHOSPHATASE (BEAKER) (test zomo=747) 57 U/L 40-150 AST (SGOT) (BEAKER) (test gaei=000) 10 U/L 5-34 ALT (SGPT) (BEAKER) (test jlkt=319) 9 U/L 6-55 BASIC METABOLIC [id number] 19:11:00* Test Item Value Reference Range Comments SODIUM (BEAKER) (test wuhg=083) 139 meq/L 136-145 POTASSIUM (BEAKER) (test efhb=298) 3.6 meq/L 3.5-5.1 CHLORIDE (BEAKER) (test aktg=589) 101 meq/L 98-107 CO2 (BEAKER) (test pzvn=357) 22 meq/L 22-29 BLOOD UREA NITROGEN (BEAKER) (test swdt=808) 40 mg/dL 7-21 CREATININE (BEAKER) (test znqg=219) 1.71 mg/dL 0.57-1.25 GLUCOSE RANDOM (BEAKER) (test nley=628) 120 mg/dL 70-105 CALCIUM (BEAKER) (test hdtn=736) 9.1 mg/dL 8.4-10.2 EGFR (BEAKER) (test zcaj=2513) 35 mL/min/1.73 sq m ESTIMATED GFR IS NOT ACCURATE CREATININE CLEARANCE IN PREDICTING GLOMERULAR FILTRATION RATE. ESTIMATED GFR IS NOT APPLICABLE FOR DIALYSIS PATIENTS. [id number] 19:01:00* Test Item Value Reference Range Comments PROTIME (BEAKER) (test uvkc=828) 13.4 seconds 11.7-14.7 INR (BEAKER) (test sazl=596) 1.0 <=5.9 PARTIAL THROMBOPLASTIN TIME (BEAKER) (test arpy=750) 22.9 seconds 22.5-36.0 RECOMMENDED COUMADIN/WARFARIN INR THERAPY RANGESSTANDARD DOSE: 2.0 - 3.0 Includes: PROPHYLAXIS for venous thrombosis, systemic embolization; TREATMENT for venous thrombosis and/or pulmonary embolus.HIGH RISK: Target INR is 2.5-3.5 for patients with mechanical heart valves.CBC W/PLT COUNT & AUTO [id number] 17:45:00* Test Item Value Reference Range Comments WHITE BLOOD CELL COUNT (BEAKER) (test qbep=766) 6.7 K/ L 3.5-10.5 RED BLOOD CELL COUNT (BEAKER) (test zfgl=871) 2.37 M/ L 3.93-5.22 HEMOGLOBIN (BEAKER) (test inoc=978) 6.9 GM/DL 11.2-15.7 HEMATOCRIT (BEAKER) (test itbo=714) 22.4 % 34.1-44.9 MEAN CORPUSCULAR VOLUME (BEAKER) (test tdtd=898) 94.5 fL 79.4-94.8 MEAN CORPUSCULAR HEMOGLOBIN (BEAKER) (test yfni=057) 29.1 pg 25.6-32.2 MEAN CORPUSCULAR HEMOGLOBIN CONC (BEAKER) (test qosa=480) 30.8 GM/DL 32.2- 35.5 RED CELL DISTRIBUTION WIDTH (BEAKER) (test zask=781) 19.2 % 11.7-14.4 PLATELET COUNT (BEAKER) (test tphd=051) 250 K/CU MM 150-450 MEAN PLATELET VOLUME (BEAKER) (test qhcl=325) 9.6 fL 9.4-12.3 NUCLEATED RED BLOOD CELLS (BEAKER) (test pbto=870) 0 /100 WBC 0-0 NEUTROPHILS RELATIVE PERCENT (BEAKER) (test bwts=079) 83 % LYMPHOCYTES RELATIVE PERCENT (BEAKER) (test ithw=286) 8 % MONOCYTES RELATIVE PERCENT (BEAKER) (test lunq=739) 8 % EOSINOPHILS RELATIVE PERCENT (BEAKER) (test lnik=467) 0 % BASOPHILS RELATIVE PERCENT (BEAKER) (test oonh=949) 0 % NEUTROPHILS ABSOLUTE COUNT (BEAKER) (test tgnm=965) 5.55 K/ L 1.56-6.13 LYMPHOCYTES ABSOLUTE COUNT (BEAKER) (test dgio=893) 0.52 K/ L 1.18-3.74 MONOCYTES ABSOLUTE COUNT (BEAKER) (test bczu=678) 0.52 K/ L 0.24-0.36 EOSINOPHILS ABSOLUTE COUNT (BEAKER) (test dooq=255) 0.02 K/ L 0.04-0.36 BASOPHILS ABSOLUTE COUNT (BEAKER) (test auyb=476) 0.01 K/ L 0.01-0.08 IMMATURE GRANULOCYTES-RELATIVE PERCENT (BEAKER) (test hlts=3168) 1 % 0-1 URINE [id number] 10:28:00* Test Item Value Reference Range Comments CULTURE (BEAKER) (test mywj=5549) No growth BASIC METABOLIC [id number] 05:43:00* Test Item Value Reference Range Comments SODIUM (BEAKER) (test liaj=549) 135 meq/L 136-145 POTASSIUM (BEAKER) (test bshz=151) 4.2 meq/L 3.5-5.1 CHLORIDE (BEAKER) (test bmbf=523) 103 meq/L 98-107 CO2 (BEAKER) (test mujs=962) 23 meq/L 22-29 BLOOD UREA NITROGEN (BEAKER) (test ogdr=623) 26 mg/dL 7-21 CREATININE (BEAKER) (test jpnf=875) 1.22 mg/dL 0.57-1.25 GLUCOSE RANDOM (BEAKER) (test jvmr=540) 85 mg/dL 70-105 CALCIUM (BEAKER) (test hfgz=390) 9.4 mg/dL 8.4-10.2 EGFR (BEAKER) (test vdhu=6893) 51 mL/min/1.73 sq m ESTIMATED GFR IS NOT ACCURATE CREATININE CLEARANCE IN PREDICTING GLOMERULAR FILTRATION RATE. ESTIMATED GFR IS NOT APPLICABLE FOR DIALYSIS PATIENTS. CBC W/PLT COUNT & AUTO [id number] 05:23:00* Test Item Value Reference Range Comments WHITE BLOOD CELL COUNT (BEAKER) (test ofqt=439) 4.2 K/ L 4.0-10.0 RED BLOOD CELL COUNT (BEAKER) (test shrl=536) 2.65 M/ L 4.00-5.00 HEMOGLOBIN (BEAKER) (test ixox=274) 9.4 GM/DL 12.0-15.0 HEMATOCRIT (BEAKER) (test jyap=729) 26.7 % 36.0-45.0 MEAN CORPUSCULAR VOLUME (BEAKER) (test ntbl=340) 101.0 fL 82.0-99.0 MEAN CORPUSCULAR HEMOGLOBIN (BEAKER) (test vfad=843) 35.5 pg 27.0-33.0 MEAN CORPUSCULAR HEMOGLOBIN CONC (BEAKER) (test axwf=407) 35.3 GM/DL 32.0- 36.0 RED CELL DISTRIBUTION WIDTH (BEAKER) (test ydiq=836) 13.7 % 10.3-14.2 PLATELET COUNT (BEAKER) (test qtsy=990) 163 K/CU MM 150-430 MEAN PLATELET VOLUME (BEAKER) (test pbno=765) 6.3 fL 6.5-10.5 NUCLEATED RED BLOOD CELLS (BEAKER) (test cbrv=902) 0 /100 WBC 0-0 NEUTROPHILS RELATIVE PERCENT (BEAKER) (test jxhy=863) 61 % LYMPHOCYTES RELATIVE PERCENT (BEAKER) (test jjqn=420) 19 % MONOCYTES RELATIVE PERCENT (BEAKER) (test hodc=220) 16 % EOSINOPHILS RELATIVE PERCENT (BEAKER) (test fxed=604) 4 % BASOPHILS RELATIVE PERCENT (BEAKER) (test yzgq=536) 0 % NEUTROPHILS ABSOLUTE COUNT (BEAKER) (test muvl=028) 2.54 K/ L 1.80-8.00 LYMPHOCYTES ABSOLUTE COUNT (BEAKER) (test spfa=940) 0.81 K/ L 1.48-4.50 MONOCYTES ABSOLUTE COUNT (BEAKER) (test ebgm=932) 0.67 K/ L 0.00-1.30 EOSINOPHILS ABSOLUTE COUNT (BEAKER) (test hxqu=420) 0.17 K/ L 0.00-0.50 BASOPHILS ABSOLUTE COUNT (BEAKER) (test zvcr=797) 0.01 K/ L 0.00-0.20 0.00[facility] [id number] 10:52:00* Test Item Value Reference Range Comments CULTURE (BEAKER) (test xmrf=3069) No growth [id number] 06:08:00* Test Item Value Reference Range Comments MAGNESIUM (BEAKER) (test mahr=902) 2.0 mg/dL 1.6-2.6 BASIC METABOLIC [id number] 06:08:00* Test Item Value Reference Range Comments SODIUM (BEAKER) (test fedr=770) 132 meq/L 136-145 POTASSIUM (BEAKER) (test qeej=234) 4.9 meq/L 3.5-5.1 CHLORIDE (BEAKER) (test zoue=029) 104 meq/L 98-107 CO2 (BEAKER) (test qbvg=287) 21 meq/L 22-29 BLOOD UREA NITROGEN (BEAKER) (test jksu=463) 30 mg/dL 7-21 CREATININE (BEAKER) (test qxjb=110) 1.48 mg/dL 0.57-1.25 GLUCOSE RANDOM (BEAKER) (test qqxb=827) 94 mg/dL 70-105 CALCIUM (BEAKER) (test zdim=580) 9.2 mg/dL 8.4-10.2 EGFR (BEAKER) (test dpwv=6360) 41 mL/min/1.73 sq m ESTIMATED GFR IS NOT ACCURATE CREATININE CLEARANCE IN PREDICTING GLOMERULAR FILTRATION RATE. ESTIMATED GFR IS NOT APPLICABLE FOR DIALYSIS PATIENTS. LIPID [id number] 06:08:00* Test Item Value Reference Range Comments TRIGLYCERIDES (BEAKER) (test tidp=187) 71 mg/dL CHOLESTEROL (BEAKER) (test glaz=890) 130 mg/dL HDL CHOLESTEROL (BEAKER) (test shij=640) 54 mg/dL LDL CHOLESTEROL CALCULATED (BEAKER) (test dfja=071) 62 mg/dL Triglyceride Reference Range: Low Risk <150 Borderline 150-199 High Risk 200-499 Very High Risk >=500Cholesterol Reference Range: Low Risk <200 Borderline 200-239 High Risk >240HDL Cholesterol Reference Range: Low Risk >=60 High Risk <40LDL Cholesterol Reference Range: Optimal <100 Near Optimal 100-129 Borderline 130-159 High 160-189 Very High >=190 HEPATIC FUNCTION [id number] 06:08:00* Test Item Value Reference Range Comments TOTAL PROTEIN (BEAKER) (test mulj=280) 6.0 gm/dL 6.0-8.3 ALBUMIN (BEAKER) (test ayoa=0689) 3.1 g/dL 3.5-5.0 BILIRUBIN TOTAL (BEAKER) (test hubw=730) 0.6 mg/dL 0.2-1.2 BILIRUBIN DIRECT (BEAKER) (test myfp=047) 0.3 mg/dL 0.1-0.5 ALKALINE PHOSPHATASE (BEAKER) (test qcja=954) 67 U/L 40-150 AST (SGOT) (BEAKER) (test apoa=215) 10 U/L 5-34 ALT (SGPT) (BEAKER) (test blws=843) 6 U/L 6-55 B-TYPE NATRIURETIC FACTOR (BNP)2017-03-25 05:51:00* Test Item Value Reference Range Comments B-TYPE NATRIURETIC PEPTIDE (BEAKER) (test pkok=953) 443 pg/mL 0-100 CBC W/PLT COUNT & AUTO [id number] 05:47:00* Test Item Value Reference Range Comments WHITE BLOOD CELL COUNT (BEAKER) (test vzbq=478) 4.8 K/ L 4.0-10.0 RED BLOOD CELL COUNT (BEAKER) (test gbqd=148) 2.53 M/ L 4.00-5.00 HEMOGLOBIN (BEAKER) (test kvyc=953) 8.8 GM/DL 12.0-15.0 HEMATOCRIT (BEAKER) (test kglc=872) 25.8 % 36.0-45.0 MEAN CORPUSCULAR VOLUME (BEAKER) (test mjur=500) 102.0 fL 82.0-99.0 MEAN CORPUSCULAR HEMOGLOBIN (BEAKER) (test efzr=235) 34.8 pg 27.0-33.0 MEAN CORPUSCULAR HEMOGLOBIN CONC (BEAKER) (test qohi=684) 34.1 GM/DL 32.0- 36.0 RED CELL DISTRIBUTION WIDTH (BEAKER) (test qxrm=527) 13.7 % 10.3-14.2 PLATELET COUNT (BEAKER) (test dlnr=278) 157 K/CU MM 150-430 MEAN PLATELET VOLUME (BEAKER) (test yfyg=715) 6.7 fL 6.5-10.5 NUCLEATED RED BLOOD CELLS (BEAKER) (test uqeo=556) 0 /100 WBC 0-0 NEUTROPHILS RELATIVE PERCENT (BEAKER) (test bzvb=391) 59 % LYMPHOCYTES RELATIVE PERCENT (BEAKER) (test zeie=366) 19 % MONOCYTES RELATIVE PERCENT (BEAKER) (test amct=555) 17 % EOSINOPHILS RELATIVE PERCENT (BEAKER) (test rzlr=053) 4 % BASOPHILS RELATIVE PERCENT (BEAKER) (test teml=303) 0 % NEUTROPHILS ABSOLUTE COUNT (BEAKER) (test vrch=050) 2.82 K/ L 1.80-8.00 LYMPHOCYTES ABSOLUTE COUNT (BEAKER) (test khrn=936) 0.93 K/ L 1.48-4.50 MONOCYTES ABSOLUTE COUNT (BEAKER) (test mkgo=718) 0.81 K/ L 0.00-1.30 EOSINOPHILS ABSOLUTE COUNT (BEAKER) (test fzqa=280) 0.21 K/ L 0.00-0.50 BASOPHILS ABSOLUTE COUNT (BEAKER) (test fjqi=463) 0.02 K/ L 0.00-0.20 0.00TISSUE [id number] 18:06:00Surgical Pathology Report Case: [id number] Authorizing Provider: Margaret Polanco MD Ordering Provider: Margaret Polanco MD Ordering Location: [facility] [place] Collected: 03/21/2017 1004 PERIOPERATIVE SERVICES Pathologist: Maria Teresa Rizo Received: 03/21/2017 1326 MD Yrn Specimen: Plaque, RIGHT FEMORAL PLAQUE PLAQUE, RIGHT FEMORAL ARTERY, ENDARTERECTOMY:- ATHEROSCLEROTIC PLAQUE Signing Pathologist Direct Phone Line: [phone]; [id number] femoral plaqueThe specimen is received in saline labeled with the patient's information and labeled "right femoral plaque" and consists of a tubular-shaped segment of calcified tissue measuring 4 cm in length x 0.6 cm in diameter. [employer] sections are submitted in A1 for decalcification. CG/plPerformed.BASIC METABOLIC [id number] 04:22:00* Test Item Value Reference Range Comments SODIUM (BEAKER) (test sasu=713) 133 meq/L 136-145 POTASSIUM (BEAKER) (test ybpt=132) 4.8 meq/L 3.5-5.1 CHLORIDE (BEAKER) (test wqjy=846) 104 meq/L 98-107 CO2 (BEAKER) (test uywb=349) 22 meq/L 22-29 BLOOD UREA NITROGEN (BEAKER) (test nsns=202) 32 mg/dL 7-21 CREATININE (BEAKER) (test hweg=154) 1.70 mg/dL 0.57-1.25 GLUCOSE RANDOM (BEAKER) (test cvfx=176) 98 mg/dL 70-105 CALCIUM (BEAKER) (test dsqf=178) 9.1 mg/dL 8.4-10.2 EGFR (BEAKER) (test cubr=6196) 35 mL/min/1.73 sq m ESTIMATED GFR IS NOT ACCURATE CREATININE CLEARANCE IN PREDICTING GLOMERULAR FILTRATION RATE. ESTIMATED GFR IS NOT APPLICABLE FOR DIALYSIS PATIENTS. BASIC METABOLIC [id number] 05:07:00* Test Item Value Reference Range Comments SODIUM (BEAKER) (test jdiw=942) 138 meq/L 136-145 POTASSIUM (BEAKER) (test eiqs=099) 4.9 meq/L 3.5-5.1 CHLORIDE (BEAKER) (test gydy=567) 107 meq/L 98-107 CO2 (BEAKER) (test khvy=430) 23 meq/L 22-29 BLOOD UREA NITROGEN (BEAKER) (test rryi=291) 34 mg/dL 7-21 CREATININE (BEAKER) (test ncaw=469) 2.07 mg/dL 0.57-1.25 GLUCOSE RANDOM (BEAKER) (test qxor=734) 97 mg/dL 70-105 CALCIUM (BEAKER) (test iddo=697) 9.3 mg/dL 8.4-10.2 EGFR (BEAKER) (test srqq=5332) 28 mL/min/1.73 sq m ESTIMATED GFR IS NOT ACCURATE CREATININE CLEARANCE IN PREDICTING GLOMERULAR FILTRATION RATE. ESTIMATED GFR IS NOT APPLICABLE FOR DIALYSIS PATIENTS. URINALYSIS W/ [id number] 21:54:00* Test Item Value Reference Range Comments COLOR (BEAKER) (test jwlp=278) Yellow CLARITY (BEAKER) (test rhcd=358) Clear SPECIFIC GRAVITY UA (BEAKER) (test ivay=146) 1.015 1.001-1.035 PH UA (BEAKER) (test adlg=941) 5.5 5.0-8.0 PROTEIN UA (BEAKER) (test smxq=245) 50 mg/dL Negative GLUCOSE UA (BEAKER) (test pbjf=831) Negative Negative KETONES UA (BEAKER) (test qcpn=751) Negative Negative BILIRUBIN UA (BEAKER) (test xdvf=461) Negative Negative BLOOD UA (BEAKER) (test duao=173) Moderate Negative NITRITE UA (BEAKER) (test ztgc=838) Negative Negative LEUKOCYTE ESTERASE UA (BEAKER) (test uikh=815) Large Negative UROBILINOGEN UA (BEAKER) (test vjmh=864) 0.2 mg/dL 0.2-1.0 RBC UA (BEAKER) (test prec=995) 17 /HPF WBC UA (BEAKER) (test wbrj=289) 21 /HPF BACTERIA (BEAKER) (test omhc=693) Rare SQUAMOUS EPITHELIAL (BEAKER) (test vuny=523) < /HPF HYALINE CASTS (BEAKER) (test twbp=367) 7 /LPF SOURCE(BEAKER) (test ustk=8940) Urine, Sen [id number] 14:44:00* Test Item Value Reference Range Comments MAGNESIUM (BEAKER) (test tqjv=540) 1.7 mg/dL 1.6-2.6 BASIC METABOLIC [id number] 14:44:00* Test Item Value Reference Range Comments SODIUM (BEAKER) (test ggoq=259) 138 meq/L 136-145 POTASSIUM (BEAKER) (test xdji=016) 4.9 meq/L 3.5-5.1 CHLORIDE (BEAKER) (test ylzr=720) 104 meq/L 98-107 CO2 (BEAKER) (test vfhl=939) 25 meq/L 22-29 BLOOD UREA NITROGEN (BEAKER) (test cfzq=336) 31 mg/dL 7-21 CREATININE (BEAKER) (test vayd=934) 1.79 mg/dL 0.57-1.25 GLUCOSE RANDOM (BEAKER) (test jajm=928) 84 mg/dL 70-105 CALCIUM (BEAKER) (test mxkr=926) 9.3 mg/dL 8.4-10.2 EGFR (BEAKER) (test vbpf=8006) 33 mL/min/1.73 sq m ESTIMATED GFR IS NOT ACCURATE CREATININE CLEARANCE IN PREDICTING GLOMERULAR FILTRATION RATE. ESTIMATED GFR IS NOT APPLICABLE FOR DIALYSIS PATIENTS. CBC W/PLT COUNT & AUTO [id number] 14:27:00* Test Item Value Reference Range Comments WHITE BLOOD CELL COUNT (BEAKER) (test lspt=902) 5.9 K/ L 4.0-10.0 RED BLOOD CELL COUNT (BEAKER) (test gcro=111) 3.04 M/ L 4.00-5.00 HEMOGLOBIN (BEAKER) (test syni=400) 10.2 GM/DL 12.0-15.0 HEMATOCRIT (BEAKER) (test hoqw=824) 31.9 % 36.0-45.0 MEAN CORPUSCULAR VOLUME (BEAKER) (test nyfy=532) 105.0 fL 82.0-99.0 MEAN CORPUSCULAR HEMOGLOBIN (BEAKER) (test nxrj=276) 33.7 pg 27.0-33.0 MEAN CORPUSCULAR HEMOGLOBIN CONC (BEAKER) (test temw=743) 32.1 GM/DL 32.0- 36.0 RED CELL DISTRIBUTION WIDTH (BEAKER) (test dhux=674) 14.5 % 10.3-14.2 PLATELET COUNT (BEAKER) (test fwik=529) 168 K/CU MM 150-430 MEAN PLATELET VOLUME (BEAKER) (test vdhg=717) 6.8 fL 6.5-10.5 NUCLEATED RED BLOOD CELLS (BEAKER) (test jikv=912) 0 /100 WBC 0-0 NEUTROPHILS RELATIVE PERCENT (BEAKER) (test ixba=018) 67 % LYMPHOCYTES RELATIVE PERCENT (BEAKER) (test brpg=023) 18 % MONOCYTES RELATIVE PERCENT (BEAKER) (test krcb=182) 11 % EOSINOPHILS RELATIVE PERCENT (BEAKER) (test aoka=877) 3 % BASOPHILS RELATIVE PERCENT (BEAKER) (test okqc=311) 1 % NEUTROPHILS ABSOLUTE COUNT (BEAKER) (test bgec=298) 3.90 K/ L 1.80-8.00 LYMPHOCYTES ABSOLUTE COUNT (BEAKER) (test qfge=424) 1.07 K/ L 1.48-4.50 MONOCYTES ABSOLUTE COUNT (BEAKER) (test mjat=366) 0.66 K/ L 0.00-1.30 EOSINOPHILS ABSOLUTE COUNT (BEAKER) (test eavr=965) 0.18 K/ L 0.00-0.50 BASOPHILS ABSOLUTE COUNT (BEAKER) (test yqch=768) 0.05 K/ L 0.00-0.20 0.00HGB/HCT (H&H) - STAT [id number] 11:17:00* Test Item Value Reference Range Comments HEMOGLOBIN (BEAKER) (test xnci=015) 9.1 g/dL 12.0-15.0 HEMATOCRIT (BEAKER) (test hfhs=999) 27.0 % 36.0-45.0 CALCIUM, [id number] 11:16:00* Test Item Value Reference Range Comments CALCIUM IONIZED (BEAKER) (test lqpr=361) 1.09 mmol/L 1.12-1.27 PH, BLOOD (BEAKER) (test qwfn=1500) 7.35 GLUCOSE-STAT [id number] 09:09:00* Test Item Value Reference Range Comments GLUCOSE RANDOM (BEAKER) (test kqvf=564) 109 mg/dL 70-110 SODIUM NA-STAT [id number] 09:09:00* Test Item Value Reference Range Comments SODIUM (BEAKER) (test bxvl=452) 135 meq/L 135-148 POTASSIUM-STAT [id number] 09:09:00* Test Item Value Reference Range Comments POTASSIUM (BEAKER) (test koay=519) 3.6 meq/L 3.6-5.5 BLOOD GAS, [id number] 09:09:00* Test Item Value Reference Range Comments PH ARTERIAL (BEAKER) (test tsiw=834) 7.46 7.35-7.45 PCO2 ARTERIAL (BEAKER) (test yedr=809) 37 mmHg 35-45 PO2 ARTERIAL (BEAKER) (test rcaz=966) 214 mmHg 80-90 O2 SATURATION ARTERIAL (BEAKER) (test svut=755) 99.5 % 96.0-97.0 HCO3 ARTERIAL (BEAKER) (test dmjc=669) 26 mmol/L 21-29 BASE EXCESS ARTERIAL (BEAKER) (test azfp=572) 1.7 mmol/L -2.0-3.0 PATIENT TEMPERATURE (BEAKER) (test fbex=7760) 35.2 C FIO2 (BEAKER) (test yggc=7152) 65.0 % HGB/HCT (H&H) - STAT [id number] 09:09:00* Test Item Value Reference Range Comments HEMOGLOBIN (BEAKER) (test qjsp=872) 10.4 g/dL 12.0-15.0 HEMATOCRIT (BEAKER) (test toet=685) 31.0 % 36.0-45.0 CALCIUM, [id number] 09:09:00* Test Item Value Reference Range Comments CALCIUM IONIZED (BEAKER) (test mtrd=325) 1.11 mmol/L 1.12-1.27 PH, BLOOD (BEAKER) (test igea=4959) 7.46 CBC W/PLT COUNT & AUTO [id number] 10:00:00* Test Item Value Reference Range Comments WHITE BLOOD CELL COUNT (BEAKER) (test swfn=665) 6.5 K/ L 4.0-10.0 RED BLOOD CELL COUNT (BEAKER) (test dbwk=974) 3.38 M/ L 4.00-5.00 HEMOGLOBIN (BEAKER) (test skkj=226) 11.7 GM/DL 12.0-15.0 HEMATOCRIT (BEAKER) (test wquz=033) 34.3 % 36.0-45.0 MEAN CORPUSCULAR VOLUME (BEAKER) (test uxam=080) 102.0 fL 82.0-99.0 MEAN CORPUSCULAR HEMOGLOBIN (BEAKER) (test xsyc=863) 34.6 pg 27.0-33.0 MEAN CORPUSCULAR HEMOGLOBIN CONC (BEAKER) (test cqvy=230) 34.1 GM/DL 32.0- 36.0 RED CELL DISTRIBUTION WIDTH (BEAKER) (test bvqx=857) 13.5 % 10.3-14.2 PLATELET COUNT (BEAKER) (test gwrx=234) 226 K/CU MM 150-430 MEAN PLATELET VOLUME (BEAKER) (test tcpe=940) 6.3 fL 6.5-10.5 NUCLEATED RED BLOOD CELLS (BEAKER) (test zymv=734) 0 /100 WBC 0-0 NEUTROPHILS RELATIVE PERCENT (BEAKER) (test czib=037) 71 % LYMPHOCYTES RELATIVE PERCENT (BEAKER) (test wucx=089) 18 % MONOCYTES RELATIVE PERCENT (BEAKER) (test lgwb=793) 8 % EOSINOPHILS RELATIVE PERCENT (BEAKER) (test vrdk=807) 3 % BASOPHILS RELATIVE PERCENT (BEAKER) (test hcyq=251) 0 % NEUTROPHILS ABSOLUTE COUNT (BEAKER) (test fenf=348) 4.56 K/ L 1.80-8.00 LYMPHOCYTES ABSOLUTE COUNT (BEAKER) (test ynjn=741) 1.19 K/ L 1.48-4.50 MONOCYTES ABSOLUTE COUNT (BEAKER) (test jeex=047) 0.53 K/ L 0.00-1.30 EOSINOPHILS ABSOLUTE COUNT (BEAKER) (test lifi=280) 0.16 K/ L 0.00-0.50 BASOPHILS ABSOLUTE COUNT (BEAKER) (test biva=875) 0.01 K/ L 0.00-0.20 0.00COMPREHENSIVE METABOLIC [id number] 09:50:00* Test Item Value Reference Range Comments TOTAL PROTEIN (BEAKER) (test fhni=064) 7.6 gm/dL 6.0-8.3 ALBUMIN (BEAKER) (test ubfa=1963) 4.1 g/dL 3.5-5.0 ALKALINE PHOSPHATASE (BEAKER) (test cdrs=396) 87 U/L 40-150 BILIRUBIN TOTAL (BEAKER) (test hzax=644) 0.5 mg/dL 0.2-1.2 SODIUM (BEAKER) (test ohaf=769) 135 meq/L 136-145 POTASSIUM (BEAKER) (test urke=772) 4.4 meq/L 3.5-5.1 CHLORIDE (BEAKER) (test qtiv=923) 98 meq/L 98-107 CO2 (BEAKER) (test uaal=013) 25 meq/L 22-29 BLOOD UREA NITROGEN (BEAKER) (test hrzx=562) 42 mg/dL 7-21 CREATININE (BEAKER) (test ckry=396) 1.65 mg/dL 0.57-1.25 GLUCOSE RANDOM (BEAKER) (test skxn=769) 94 mg/dL 70-105 CALCIUM (BEAKER) (test xkdu=620) 9.7 mg/dL 8.4-10.2 AST (SGOT) (BEAKER) (test afch=006) 14 U/L 5-34 ALT (SGPT) (BEAKER) (test jzon=909) 8 U/L 6-55 EGFR (BEAKER) (test nyig=9065) 36 mL/min/1.73 sq m ESTIMATED GFR IS NOT ACCURATE CREATININE CLEARANCE IN PREDICTING GLOMERULAR FILTRATION RATE. ESTIMATED GFR IS NOT APPLICABLE FOR DIALYSIS PATIENTS. [id number] 09:49:00* Test Item Value Reference Range Comments PARTIAL THROMBOPLASTIN TIME (BEAKER) (test hmyx=479) 30.4 seconds 22.5-36.0 PROTHROMBIN [id number] 09:48:00* Test Item Value Reference Range Comments PROTIME (BEAKER) (test tgwz=890) 12.8 seconds 11.7-14.7 INR (BEAKER) (test zqla=178) 1.0 <=5.9 RECOMMENDED COUMADIN/WARFARIN INR THERAPY RANGESSTANDARD DOSE: 2.0 - 3.0 Includes: PROPHYLAXIS for venous thrombosis, systemic embolization; TREATMENT for venous thrombosis and/or pulmonary embolus.HIGH RISK: Target INR is 2.5-3.5 for patients with mechanical heart valves.BLOOD [id number] 17:00:00* Test Item Value Reference Range Comments CULTURE (BEAKER) (test tmpb=9240) No growth in 5 days [id number] 07:21:00* Test Item Value Reference Range Comments MAGNESIUM (BEAKER) (test dntn=378) 1.9 mg/dL 1.6-2.6 BASIC METABOLIC [id number] 07:21:00* Test Item Value Reference Range Comments SODIUM (BEAKER) (test wyda=946) 134 meq/L 136-145 POTASSIUM (BEAKER) (test zrrg=993) 3.8 meq/L 3.5-5.1 CHLORIDE (BEAKER) (test dxbt=642) 100 meq/L 98-107 CO2 (BEAKER) (test mgpq=785) 25 meq/L 22-29 BLOOD UREA NITROGEN (BEAKER) (test weef=817) 18 mg/dL 7-21 CREATININE (BEAKER) (test rxdu=408) 1.17 mg/dL 0.57-1.25 GLUCOSE RANDOM (BEAKER) (test doql=707) 96 mg/dL 70-105 CALCIUM (BEAKER) (test eipq=718) 9.0 mg/dL 8.4-10.2 EGFR (BEAKER) (test cwmp=4094) 54 mL/min/1.73 sq m ESTIMATED GFR IS NOT ACCURATE CREATININE CLEARANCE IN PREDICTING GLOMERULAR FILTRATION RATE. ESTIMATED GFR IS NOT APPLICABLE FOR DIALYSIS PATIENTS. HEMOGLOBIN [id number] 09:36:00* Test Item Value Reference Range Comments HEMOGLOBIN A1C (BEAKER) (test rgem=766) 4.9 % 4.3-6.1 LIPID [id number] 01:05:00* Test Item Value Reference Range Comments TRIGLYCERIDES (BEAKER) (test tcua=530) 80 mg/dL CHOLESTEROL (BEAKER) (test hmav=304) 239 mg/dL HDL CHOLESTEROL (BEAKER) (test koiw=224) 113 mg/dL LDL CHOLESTEROL CALCULATED (BEAKER) (test xuwq=378) 110 mg/dL Triglyceride Reference Range: Low Risk <150 Borderline 150-199 High Risk 200-499 Very High Risk >=500Cholesterol Reference Range: Low Risk <200 Borderline 200-239 High Risk >240HDL Cholesterol Reference Range: Low Risk >=60 High Risk <40LDL Cholesterol Reference Range: Optimal <100 Near Optimal 100-129 Borderline 130-159 High 160-189 Very High >=190 BASIC METABOLIC [id number] 01:05:00* Test Item Value Reference Range Comments SODIUM (BEAKER) (test typd=508) 135 meq/L 136-145 POTASSIUM (BEAKER) (test kypr=121) 4.0 meq/L 3.5-5.1 CHLORIDE (BEAKER) (test cdra=968) 100 meq/L 98-107 CO2 (BEAKER) (test xegf=840) 25 meq/L 22-29 BLOOD UREA NITROGEN (BEAKER) (test iqnn=037) 16 mg/dL 7-21 CREATININE (BEAKER) (test uzkd=300) 0.88 mg/dL 0.57-1.25 GLUCOSE RANDOM (BEAKER) (test pqkp=209) 118 mg/dL 70-105 CALCIUM (BEAKER) (test hxgs=927) 9.5 mg/dL 8.4-10.2 EGFR (BEAKER) (test rsjo=7475) 75 mL/min/1.73 sq m ESTIMATED GFR IS NOT ACCURATE CREATININE CLEARANCE IN PREDICTING GLOMERULAR FILTRATION RATE. ESTIMATED GFR IS NOT APPLICABLE FOR DIALYSIS PATIENTS. [id number] 01:05:00* Test Item Value Reference Range Comments MAGNESIUM (BEAKER) (test zrnf=045) 1.5 mg/dL 1.6-2.6 [id number] 01:05:00* Test Item Value Reference Range Comments PHOSPHORUS (BEAKER) (test pywf=925) 3.2 mg/dL 2.3-4.7 HEPATIC FUNCTION [id number] 01:05:00* Test Item Value Reference Range Comments TOTAL PROTEIN (BEAKER) (test bgmt=886) 6.8 gm/dL 6.0-8.3 ALBUMIN (BEAKER) (test wzbm=7548) 3.8 g/dL 3.5-5.0 BILIRUBIN TOTAL (BEAKER) (test usyn=524) 0.6 mg/dL 0.2-1.2 BILIRUBIN DIRECT (BEAKER) (test lkuh=303) 0.3 mg/dL 0.1-0.5 ALKALINE PHOSPHATASE (BEAKER) (test ksnm=130) 70 U/L 40-150 AST (SGOT) (BEAKER) (test iwvw=077) 23 U/L 5-34 ALT (SGPT) (BEAKER) (test ymne=440) 13 U/L 6-55 CBC W/PLT COUNT & AUTO [id number] 00:45:00* Test Item Value Reference Range Comments WHITE BLOOD CELL COUNT (BEAKER) (test xqhy=673) 7.3 K/ L 4.0-10.0 RED BLOOD CELL COUNT (BEAKER) (test wild=172) 3.49 M/ L 4.00-5.00 HEMOGLOBIN (BEAKER) (test ghni=857) 12.2 GM/DL 12.0-15.0 HEMATOCRIT (BEAKER) (test leaz=311) 36.5 % 36.0-45.0 MEAN CORPUSCULAR VOLUME (BEAKER) (test rwfp=666) 105.0 fL 82.0-99.0 MEAN CORPUSCULAR HEMOGLOBIN (BEAKER) (test nlgw=926) 35.1 pg 27.0-33.0 MEAN CORPUSCULAR HEMOGLOBIN CONC (BEAKER) (test chrh=257) 33.5 GM/DL 32.0- 36.0 RED CELL DISTRIBUTION WIDTH (BEAKER) (test zyrd=230) 15.5 % 10.3-14.2 PLATELET COUNT (BEAKER) (test pjkj=259) 259 K/CU MM 150-430 MEAN PLATELET VOLUME (BEAKER) (test tmgj=927) 6.1 fL 6.5-10.5 NUCLEATED RED BLOOD CELLS (BEAKER) (test mbfd=749) 0 /100 WBC 0-0 NEUTROPHILS RELATIVE PERCENT (BEAKER) (test suaf=511) 77 % LYMPHOCYTES RELATIVE PERCENT (BEAKER) (test ajpp=085) 12 % MONOCYTES RELATIVE PERCENT (BEAKER) (test szju=963) 9 % EOSINOPHILS RELATIVE PERCENT (BEAKER) (test kxzj=158) 2 % BASOPHILS RELATIVE PERCENT (BEAKER) (test ekpd=318) 1 % NEUTROPHILS ABSOLUTE COUNT (BEAKER) (test uyua=959) 5.61 K/ L 1.80-8.00 LYMPHOCYTES ABSOLUTE COUNT (BEAKER) (test ukeh=525) 0.91 K/ L 1.48-4.50 MONOCYTES ABSOLUTE COUNT (BEAKER) (test exfr=788) 0.64 K/ L 0.00-1.30 EOSINOPHILS ABSOLUTE COUNT (BEAKER) (test mrpj=496) 0.12 K/ L 0.00-0.50 BASOPHILS ABSOLUTE COUNT (BEAKER) (test bukc=937) 0.04 K/ L 0.00-0.20 0.00
[2018-04-01] MEDS ORDERED: [UNRECOGNIZED DRUG - REMARK] (18:14)
[2018-04-01] MEDS ORDERED: HYDRALAZINE HCL10 MG PO (18:47)
[2018-04-01] MEDS ORDERED: FERROUS SULFAT324 MG (18:47)
[2018-04-01] MEDS ORDERED: CARVEDILOL3.125 MG PO (18:47)
[2018-04-01] MEDS ORDERED: PANTOPRAZOLE SO40 MG PO (18:47)
[2018-04-01] MEDS ORDERED: ISOSORBIDE MONO10 MG (18:47)
[2018-04-01] MEDS ORDERED: LEXAPRO10 MG PO (18:47)
[2018-04-01] MEDS ORDERED: NORCO 5-325 TA1 EACH PO (18:47)
[2018-04-01] MEDS ORDERED: ALBUTEROL SULFAT2 MG PO (18:47)
[2018-04-01] MEDS ORDERED: PLAVIX75 MG PO (18:47)
[2018-04-01] MEDS ORDERED: DOCUSATE SODIU100 MG PO (18:47)
[2018-04-01] MEDS ORDERED: LIPITOR20 MG (18:47)
[2018-04-01] MEDS ORDERED: NIFEDIPINE10 MG PO (18:47)
[2018-04-01] MEDS ORDERED: BUMETANIDE0.25 MG/1 IV (18:47)
[2018-04-01] MEDS ORDERED: LACTULOSE20 GM/30 M PO (18:47)
[2018-04-01] MEDS ORDERED: POTASSIUM CHLO10 ME1 PO (18:47)
== END 2018-04-01 18:35 | disposition home or self-care (01) ==
LOC: FSED 17:52
DX: R30.0 Dysuria (principal); N30.90 Cystitis, unspecified without hematuria; I10 Essential (primary) hypertension; I50.9 Heart failure, unspecified; J44.9 Chronic obstructive pulmonary disease, unspecified; K21.9 Gastro-esophageal reflux disease without esophagitis
CPT/HCPCS: 80307; 87086; 99283